=== PATIENT | male | born 1965 | race Caucasian/White ===

== ENCOUNTER → 2017-02-16 | Outpatient (CLI) | payer OTHER ==
[~2017-02-16] MED LIST: ASPEC81 PO; LPT40 PO; METO1TAB31 PO; NTRGSL4 SL; PLV75 PO
== END | disposition home or self-care (01) ==
LOC: C.LAB 00:48
DX: Z02.83 Encounter for blood-alcohol and blood-drug test (principal)

== ENCOUNTER 2017-02-28 07:45 | Observation (INO) | payer OTHER ==
[~2017-02-28] VITALS: Ht 165.1 cm; Wt 82.5 kg
[2017-02-28 09:32] VITALS: BP 132/76; PULSE 55; TEMP 36.5; O2SAT 100; BMI 27.0
[2017-02-28 13:40] VITALS: BP 124/80; PULSE 61; TEMP 36.6; O2SAT 98; Ht 165.1 cm; Wt 82.5 kg
[2017-02-28] MEDS ORDERED: IV FLUIDS COMPLETED PRN (13:45)
[2017-02-28] MEDS ORDERED: ATORVASTATIN 40 MG TAB PO ONE (14:00)
[2017-02-28 15:46] VITALS: BP 120/76; PULSE 58; TEMP 36.6; O2SAT 97
[2017-02-28 19:56] VITALS: BP 114/72; PULSE 58; TEMP 36.7; O2SAT 95
--- NOTE | 2017-02-28 21:52 | History & Physical Bridge Note ---
H&P Re-Evaluation Bridge Note: I have examined the patient, reviewed the History & Physical and in the interval since the performance of the History & Physical I have noted the following changes of clinical significance: No changes noted
[2017-03-01] VITALS (16 sets, daily range): BP systolic 98–139; BP diastolic 65–93; PULSE 47–99; TEMP 36.3–37.1; O2SAT 94–100
[2017-03-01] MEDS ORDERED: NiCARDipine HCL INJ 2.5 MG/ML 10 ML AMP ONE (07:53)
[2017-03-01] MEDS ORDERED: NITROGLYCERIN/D5W 100MCG/ML 20ML SYR ONE (07:54)
[2017-03-01] MEDS ORDERED: HEPARIN SOD (PORCINE) 1000 UNIT/ML 10 ML VIAL ONE ×2 (07:54→09:34)
[2017-03-01] MEDS ORDERED: MIDAZOLAM HCL 1 MG/ML 2ML VIAL ONE ×2 (07:55→09:10)
[2017-03-01] MEDS ORDERED: FENTANYL CITRATE INJ 50 MCG/1 ML 2 ML VIAL ONE (07:55)
[2017-03-01] MEDS ORDERED: ADENOSINE IV SOLN 3 MG/ML 20 ML VIAL ONE (08:45)
--- NOTE | 2017-03-01 08:50 | Procedure Note ---
Pre-Mod Sedation Assessment General Date of Moderate Sedation: Mar 01, 2017. Vital Signs: Vital Signs Past 12 Hours Date Time Temp Pulse Resp B/P (MAP) Pulse Ox O2 Delivery O2 Flow Rate FiO2 03/01/17 07:26 36.6 47 18 106/69 (81) 98 Room Air 03/01/17 04:00 97 Room Air 03/01/17 04:00 37.0 56 98/67 (77) 97 Room Air 03/01/17 00:00 36.9 60 110/76 (87) 94 Room Air 03/01/17 00:00 94 Room Air Review Cardiovascular: regular rate, rhythm, no edema, + bradycardia Abdomen: normal bowel sounds, non tender, soft Lungs: chest non-tender, lungs clear Pre-Sedation Airway Assessment Oral Cavity: WNL Short Thick Neck: No Hx of Sleep Apnea: No Smoking Status: Never Smoker Mallampati Classification: Class II ASA Classification: Class III Procedure Planning Contraindications-for Mod Sed: None Yes Notes The planned sedation has been discussed with the patient and consent obtained. I have identified the patient, determined the appropriateness of sedation and have assessed the patient immediately prior to the procedure. All medicine(s) and interventions are by my order.
--- NOTE | 2017-03-01 08:51 | Procedure Note ---
Post-Mod Sedation Assessment General Date of Moderate Sedation Mar 01, 2017. Vital Signs: Vital Signs Past 12 Hours Date Time Temp Pulse Resp B/P (MAP) Pulse Ox O2 Delivery O2 Flow Rate FiO2 03/01/17 07:26 36.6 47 18 106/69 (81) 98 Room Air 03/01/17 04:00 97 Room Air 03/01/17 04:00 37.0 56 98/67 (77) 97 Room Air 03/01/17 00:00 36.9 60 110/76 (87) 94 Room Air 03/01/17 00:00 94 Room Air Review - Discharge Criteria Vital Signs Stable: Yes Alert/Oriented/Conversant: Yes Returned to Baseline Mental St: Yes Nausea Absent/Minimal: Yes Pain/Discomfort/Absent/Minimal: Yes Normal/Baseline Respirations: Yes Active Bleeding?: No Pt Received D/C Instructions: N/A Prescriptions Given: None Specific Proced. D/C Criteria Distal Pulses Present (Cardiac: Yes Groin site assessed-Card Cath: N/A Voided Prior To Discharge: N/A Discharged Patients Adult Escort/Transportation: N/A
[2017-03-01] MEDS ORDERED: ATORVASTATIN 40 MG TAB PO SCH (09:00)
[2017-03-01] MEDS ORDERED: ASPIRIN 81 MG CHEW PO SCH (09:00)
--- NOTE | 2017-03-01 09:13 | Cardiac Catheterization ---
Procedure Note Procedure Date Mar 01, 2017. Pre-Procedure Diagnosis Angina, Positive Stress Test AUC Score 8 Post-Procedure Diagnosis Moderate CAD Procedure(s) Performed Coronary Angiography, Left Heart Cath Commutator Tester Dr. 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 ACC Data Cardiac Status Clinical evaluation leading to the procedure CAD Presntation: Unstable angina Anginal Classification: CCS II Heart Failure: No Cardiogenic Shock w/in 24Hrs: No Cardiac Arrest w/in 24Hrs: No Imaging studies past 6 months: Yes Stress Echocardiogram: Yes - Positive, Risk/Extent of Ischemia (High) Coronary Anatomy Dominant: Right Left Main (% Stenosis): Normal LAD (% Stenosis): Ostial (0%), Proximal (60%), Mid (20%, 80% stenosis of small second septal driver/refuse collector), Distal (10%) D1 (% Stenosis): Normal D2 (% Stenosis): Normal D3 (% Stenosis): Normal Circumflex (% Stenosis): Normal OM1 (% Stenosis): Normal OM2 (% Stenosis): Ostial (small vessel with diffuse luminal irregularities 10%) L PL1 (% Stenosis): Normal RCA (% Stenosis): Ostial (0%), Proximal (20%), Mid (0%), Distal (0%) R PDA (% Stenosis): Ostial (10%), Proximal (40%), Mid (10%), Distal (10%) AM (% Stenosis): Normal Ramus (% Stenosis): Ostial (0%), Mid (20%), Distal (0%), Proximal (0%) Diagnostic Status: Urgent Closure Device Percutaneous Entry Location: Radial Closure Device: Radial Band Intraprocedure Events Significant Dissection: No Perforation: No
[2017-03-01] MEDS ORDERED: ONDANSETRON INJ 2 MG/ML 2 ML VIAL IV PRN (10:00)
[2017-03-01] MEDS ORDERED: SODIUM CHLORIDE 0.9% 1000ML 1,000 ML IV SCH (10:00)
[2017-03-01] MEDS ORDERED: ACETAMINOPHEN 325 MG TAB PO PRN (10:00)
[2017-03-01] MEDS ORDERED: CLOPIDOGREL BISULFATE 300 MG TAB PO ONE (10:04)
--- NOTE | 2017-03-01 10:06 | Procedure Note ---
Post-Mod Sedation Assessment General Date of Moderate Sedation Mar 01, 2017. Vital Signs: Vital Signs Past 12 Hours Date Time Temp Pulse Resp B/P (MAP) Pulse Ox O2 Delivery O2 Flow Rate FiO2 03/01/17 09:48 58 16 126/78 (94) 98 Room Air 03/01/17 07:26 36.6 47 18 106/69 (81) 98 Room Air 03/01/17 04:00 97 Room Air 03/01/17 04:00 37.0 56 98/67 (77) 97 Room Air 03/01/17 00:00 36.9 60 110/76 (87) 94 Room Air 03/01/17 00:00 94 Room Air Review - Discharge Criteria Vital Signs Stable: Yes Alert/Oriented/Conversant: Yes Returned to Baseline Mental St: Yes Nausea Absent/Minimal: Yes Pain/Discomfort/Absent/Minimal: Yes Normal/Baseline Respirations: Yes Active Bleeding?: No Pt Received D/C Instructions: N/A Prescriptions Given: None Specific Proced. D/C Criteria Distal Pulses Present (Cardiac: Yes Groin site assessed-Card Cath: N/A Voided Prior To Discharge: N/A Discharged Patients Adult Escort/Transportation: N/A
--- NOTE | 2017-03-01 10:16 | Cardiac Catheterization ---
Procedure Note Procedure Date Mar 01, 2017. Pre-Procedure Diagnosis Positive Stress Test AUC Score 7 Post-Procedure Diagnosis Severe CAD, Successful PCI Procedure(s) Performed Drug Eluting Stent, IVUS, Fractional Flow [place] Machine Clothing Replacer Rogerio Bulk Mail Clerk(s) Dana Estimated Blood Loss 15 Medication(s) Clopidogrel, Fentanyl, Heparin, Nitroglycerin, Versed, Lidocaine 1% Summary of Findings Indication: Positive stress test Access: 6Fr Slender Right Radial Catheters: EBU 3.5 guide Findings: For full details of coronary angiography see cath report dictated by Dr. Aj. Briefly found to have diffuse proximal LAD intermediate stenosis. Decision made to further evaluate with FFR. iFR 0.89 FFR 0.65 IVUS showed diffuse 70% stenosis form mid segment to early proximal segment, ostium spared. Focal mild-moderate calcification. -- PCI -- Antithrombotic therapy: Heparin Procedure: LM cannulated with EBU 3.5 guide BMW wire passed across lesion into distal vessel Lesion characteristics/size assessed with IVUS Proximal-mid lesion predilated with 2.5 compliant balloon Dilated lesion stented with 3.0 x 33 Xience ÓSCAR Stent post-dilated with 3.75 noncompliant balloon to high atmospheres. IVUS confirmed well-expanded stent IC vasodilators administered for spasm Post procedure BEATRICE 3 flow, stent well expanded with minimal residual stenosis and no apparent cardiac complications. Arterial Closure: TR Band Summary: 1. 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 Aj Consult cardiac Rehab Hemodynamics Rest Ao: 97/62/77 Final Ao: 101/60/81 LV: 109/13 Recommendations PCI without planned CABG Specimens None Radiation Exposure (mGy) 3600 Contrast (mls) 160 Fluids (cc crystalloids) 170 Drains None Anesthesia Moderate (08:18 - 9:48) Procedural Complication(s) None Disposition PCU ACC Data Cardiac Status Clinical evaluation leading to the procedure CAD Presntation: Positive Stress Test Anginal Classification: CCS III Heart Failure: No, NYHA Class: CCS I Cardiogenic Shock w/in 24Hrs: No Cardiac Arrest w/in 24Hrs: No Imaging studies past 6 months: Yes Stress studies past 6 months: Yes Coronary Anatomy Dominant: Right LAD (% Stenosis): Proximal (70%) Diagnostic Physician's Name: Omid Aj DO Status: Elective Closure Device Percutaneous Entry Location: Femoral Closure Device: Radial Band Recommendations: PCI without planned CABG PCI Indication: + Stress Test Lesion Segment Name: Proximal-mid LAD Culprit Artery: Yes Stenosis Prior to Rx (%): 70 Chronic Total Occlusion: No IVUS: Yes FFR: Yes Ratio: less than or equal to 0.75% Pre-Procedure BEATRICE Flow: 3 Previously Treated Lesion: No Lesion Complexity: Non-High/Non-C Lesion Length (mm): 30 Thrombus Present: No Bifurcation Lesion: No Guidewire Across Lesion: Yes Guidewire: Stenosis Post-Procedure (%): 0 Post-Procedure BEATRICE Flow: 3 Device(s) Deployed: Yes Intraprocedure Events Significant Dissection: No Perforation: No
--- NOTE | 2017-03-01 19:03 | Cardiology Follow-Up ---
Subjective General Date of Service: Mar 01, 2017. Pt evaluation today including: conversation w/ patient, physical exam, chart review, lab review, review of studies, review of inpatient medication list History of Present Illness The patient is a 51 year old male seen in follow up. No recurrent CP overnight. No complaints. Allergies Coded Allergies: Penicillins (Verified Adverse Reaction, Mild, N/V, 09/25/09) No Known Allergies (Verified , 03/06/05) Social History Smoking Status: Never Smoker Hx Tobacco Use In Past Year?: No Hx Alcohol Use - Type And Amou: No Hx Substance Use - Type And Am: No Review of Systems Respiratory: No cough, No sputum, No shortness of breath, No dyspnea at rest, No hemoptysis Cardiac: No chest pain, No edema, No palpitations Physical Exam Vital Signs Last Vital Signs Documentation Date Time Temp Pulse Resp B/P (MAP) Pulse Ox O2 Delivery O2 Flow Rate FiO2 03/01/17 16:00 Room Air 03/01/17 15:20 36.3 48 18 109/71 (84) 97 Physical Exam Head: normocephalic Lungs: Auscultation: breath sounds normal, no wheezing, no rales/crackles Cardiovascular: Heart Auscultation: RRR, normal S1, normal S2, no murmurs, bradycardia Peripheral Pulses: Radial Pulse: normal on the right Femoral Pulse: normal on the right Extremities: no cyanosis, no edema Assessment and Plan Assessment and Plan 1. Exertional angina with abnormal stress test suggesting LAD territory ischemia. Plan: Coronary angiography with left heart catheterization. Continue aspirin and statin. Laboratory Results Last 24 Hours Test 03/01/17 06:58 03/01/17 09:07 03/01/17 09:29 03/01/17 10:37 Hepatitis C Antibody Screen PRELIM POS Kaolin Activated Coagulation Time 268 SECONDS 246 SECONDS
[2017-03-02 03:21] VITALS: BP 125/77; PULSE 52; TEMP 36.9; O2SAT 97
[2017-03-02 07:05] LABS: BASO % 0.7 %; BASO ABS # 0.07 K/uL (0-0.2); COMPLETE YES; EOS % 6.5 %; HEMATOCRIT 47.6 % (42-52); IG% 0.1 %; LYMPH % 21.3 %; LYMPH ABS # 2.23 K/uL (1.2-3.4); MEAN CELL VOLUME 90.5 fL (80-100); MEAN CORPUSCULAR HEMOGLOBIN 29.8 pg (25-34); MONO % 12.7 %; NEUT % 58.7 %; PLATELET COUNT 306 K/uL (130-400); RED BLOOD COUNT 5.26 M/uL (4.7-6.1); WHITE BLOOD COUNT 10.46 K/uL (4.8-10.8)
[2017-03-02 07:41] LABS: BUN/CREATININE RATIO 16.3 (10-20); CALCIUM 8.4 mg/dl (8.5-10.1); CREATININE 1.1 mg/dl (0.60-1.40)
[2017-03-02 07:57] VITALS: BP 120/82; PULSE 55; TEMP 36.6; O2SAT 96
[2017-03-02] MEDS ORDERED: CLOPIDOGREL BISULFATE 75 MG TAB PO SCH (09:00)
[2017-03-02] MEDS ORDERED: ATORVASTATIN 40 MG TAB PO SCH (09:00)
[2017-03-02] MEDS ORDERED: ASPIRIN 81 MG ECTAB PO SCH (09:00)
[2017-03-02] MEDS ORDERED: METOPROLOL SUCC 25MG EXT REL TAB PO ONE (09:27)
[2017-03-02] MEDS ORDERED: ASPEC81 PO (09:29)
[2017-03-02] MEDS ORDERED: METO1TAB31 PO (09:29)
[2017-03-02] MEDS ORDERED: PLV75 PO (09:29)
[2017-03-02] MEDS ORDERED: LPT40 PO (09:29)
[2017-03-02] MEDS ORDERED: NTRGSL4 SL (09:32)
--- NOTE | 2017-03-02 09:33 | Discharge Instructions ---
Discharge Instructions Procedure Procedure Date: Mar 02, 2017. Reason for Visit: Unstable Angina. Discharge Discharge Date: Mar 02, 2017. Discharge Diagnosis: CAD S/P LAD stent Last Recorded Wt (Kilograms): 82.500 Anesthesia Post Anesthesia Instructions: If you have had General Anesthesia or IV Sedation: * Do not drive today. * Resume driving when surgeon permits. * Do not make important decisions or sign legal documents today. * Call surgeon for: 1. Temperature elevations greater than 101 degrees F. 2. Uncontrollable pain. 3. Excessive bleeding. 4. Persistent nausea and vomiting. 5. Medication intolerance (nausea, vomiting or rash). * For nausea and vomiting use only clear liquids such as: tea, soda, bouillon until nausea subsides, then gradually increase diet as tolerated. * If you have any concerns or questions, call your surgeon's office. If physician is unavailable and it is an emergency, call 911 or go to the nearest emergency room. Instructions Activity Recommendations: limitations as noted below Return to School/Work: with the following limitations Recommended Home Diet: low cholesterol Allergies: Coded Allergies: Penicillins (Verified Adverse Reaction, Mild, N/V, 09/25/09) No Known Allergies (Verified , 03/06/05) Provider Instructions ACTIVITY RECOMMENDATIONS: It is common to feel weak and fatigue for a few days. * Do not drive or operate any motorized equipment for the next three days. * Limit stair usage (2 or 3 trips a day only) for the next three days. * Do not lift anything heavier than 10 pounds for the next three days. * Do not engage in vigorous exercise or any sports for the next five days. * You may shower the day after your procedure, but do not immerse the area for three days. Cleanse the site gently with soap and water. SPECIAL CARE INSTRUCTIONS: * You may replace the pressure dressing or band-aid the morning after the procedure. * After your procedure, it is normal to have a small bruise or small lump at the site. Examine your site daily for any change in the bruise or lump, redness, swelling, drainage or numbness. Notify your doctor if any change. BLEEDING: * If there is a small amount of bleeding at the site, lie down and apply firm pressure with a clean cloth for ten minutes. When the bleeding stops, lie quietly keeping the procedure limb straight for six hours. Notify your doctor as soon as possible. * If the bleeding does not stop after ten minutes or if there is a large amount of bleeding or spurting, call 911 immediately. Continue to lie down and hold firm pressure until help arrives. SKIN IRRITATION: * You may experience some redness and/or swelling in the area where radiation was administered. If any skin irritation occurs, please contact your family physician. FOLLOW UP VISIT: Keep any scheduled doctor appointments. Follow Up Follow-up with: Dr. Aj in 2 weeks. Phone number [phone] [facility] Recommendations: Call your doctor if: * Temperature above 101 degrees * Pain not relieved by pain medicine ordered * There is increased drainage or redness from any incision * You have any unanswered questions or concerns. Your Doctors Instructions noted above were prepared by provider Omid Aj. Patient Signature Section: Patient Instructions Signature Page Gustavo Moseley Patient (or Guardian) Signature/Date: I have read and understand the instructions given to me by my caregivers. Caregiver/RN/Doctor Signature/Date: The above-named patient and/or guardian has received patient instructions on this date. + Original Patient Signature Page (only) stays with chart. Please make copy for patient.
[2017-03-02 09:38] VITALS: BP 120/82; PULSE 55; TEMP 36.6; O2SAT 96
--- NOTE | 2017-03-02 10:40 | Cardiology Follow-Up ---
Subjective General Date of Service: Mar 02, 2017. Pt evaluation today including: conversation w/ patient, physical exam, chart review, lab review, review of studies, review of inpatient medication list History of Present Illness The patient is a 51 year old male seen in follow-up. No dysrhythmias or significant bradycardia on telemetry. Denies chest discomfort or shortness of breath overnight. No right wrist discomfort. Tolerated a.m. meal and medications. Offers no complaints this time. Allergies Coded Allergies: Penicillins (Verified Adverse Reaction, Mild, N/V, 09/25/09) No Known Allergies (Verified , 03/06/05) Social History Smoking Status: Never Smoker Hx Tobacco Use In Past Year?: No Hx Alcohol Use - Type And Amou: No Hx Substance Use - Type And Am: No Review of Systems Respiratory: No cough, No sputum, No wheezing, No shortness of breath, No dyspnea on exertion, No dyspnea at rest, No hemoptysis Cardiac: No chest pain, No orthopnea, No PND, No edema, No claudication, No palpitations Physical Exam Vital Signs Last Vital Signs Documentation Date Time Temp Pulse Resp B/P (MAP) Pulse Ox O2 Delivery O2 Flow Rate FiO2 03/02/17 09:38 36.6 55 16 96 Room Air 03/02/17 07:57 120/82 (95) Physical Exam Head: normocephalic Neck: supple Lungs: Auscultation: breath sounds normal, no wheezing, no rales/crackles Cardiovascular: Heart Auscultation: RRR, normal S1, normal S2, no murmurs Peripheral Pulses: Radial Pulse: normal on the right Extremities: no cyanosis, no edema, no clubbing, no ulcers Neurologic: Gait & Station: pertinent finding (no focal motor deficit.) Cranial Nerves: grossly intact Assessment and Plan Assessment and Plan Imp: 1. Coronary artery disease status post drug-eluting stent implantation to the proximal left anterior descending artery. 2. Dyslipidemia 3. +HCV screen with h/o negative HCV confirmatory testing in the past. Plan: I long discussion the patient regarding importance of continuing dual antiplatelet therapy uninterrupted for a minimum of 12 months post percutaneous intervention. Risk of stent thrombosis reviewed at length. He will continue aspirin, Plavix, and atorvastatin and. He'll be provided with a prescription for sublingual nitroglycerin at time of discharge. I'm also adding low-dose Toprol-XL, 12.5 mg daily. All questions were answered to his satisfaction. Post catheterization restrictions listed below. I will arrange for close cardiology follow-up in 2 weeks. ACTIVITY RECOMMENDATIONS: It is common to feel weak and fatigue for a few days. * Do not drive or operate any motorized equipment for the next three days. * Limit stair usage (2 or 3 trips a day only) for the next three days. * Do not lift anything heavier than 10 pounds for the next three days. * Do not engage in vigorous exercise or any sports for the next five days. * You may shower the day after your procedure, but do not immerse the area for three days. Cleanse the site gently with soap and water. SPECIAL CARE INSTRUCTIONS: * You may replace the pressure dressing or band-aid the morning after the procedure. * After your procedure, it is normal to have a small bruise or small lump at the site. Examine your site daily for any change in the bruise or lump, redness, swelling, drainage or numbness. Notify your doctor if any change. BLEEDING: * If there is a small amount of bleeding at the site, lie down and apply firm pressure with a clean cloth for ten minutes. When the bleeding stops, lie quietly keeping the procedure limb straight for six hours. Notify your doctor as soon as possible. * If the bleeding does not stop after ten minutes or if there is a large amount of bleeding or spurting, call 911 immediately. Continue to lie down and hold firm pressure until help arrives. SKIN IRRITATION: * You may experience some redness and/or swelling in the area where radiation was administered. If any skin irritation occurs, please contact your family physician. Laboratory Results Last 24 Hours Test 03/01/17 10:37 03/02/17 06:22 White Blood Count 10.46 K/uL Red Blood Count 5.26 M/uL Hemoglobin 15.7 g/dL Hematocrit 47.6 % Mean Corpuscular Volume 90.5 fL Mean Corpuscular Hemoglobin 29.8 pg Mean Corpuscular Hemoglobin Concent 33.0 g/dl Platelet Count 306 K/uL Mean Platelet Volume 10.0 fL Neutrophils (%) (Auto) 58.7 % Lymphocytes (%) (Auto) 21.3 % Monocytes (%) (Auto) 12.7 % Eosinophils (%) (Auto) 6.5 % Basophils (%) (Auto) 0.7 % Neutrophils # (Auto) 6.14 K/uL Lymphocytes # (Auto) 2.23 K/uL Monocytes # (Auto) 1.33 K/uL Eosinophils # (Auto) 0.68 K/uL Basophils # (Auto) 0.07 K/uL RDW Standard Deviation 42.5 fL RDW Coefficient of Variation 12.7 % Immature Granulocyte % (Auto) 0.1 % Immature Granulocyte # (Auto) 0.01 K/uL Sodium Level 139 mmol/L Potassium Level 4.0 mmol/L Chloride Level 106 mmol/L Carbon Dioxide Level 28 mmol/L Anion Gap 5.0 mmol/L Blood Urea Nitrogen 18 mg/dl Creatinine 1.10 mg/dl Est Creatinine Clear Calc Drug Dose 76.8 ml/min Estimated GFR () 88.4 Estimated GFR (Non- 76.2 BUN/Creatinine Ratio 16.3 Random Glucose 102 mg/dl Calcium Level 8.4 mg/dl
--- NOTE | 2017-03-02 10:50 | Discharge Summary ---
Discharge Summary Dates Admission Date / Time: Feb 28, 2017 at 12:03 Discharge Date: Mar 02, 2017 Dispostion / Condition Discharge Disposition: Home Condition at Discharge: Good Principal Diagnosis (1) S/P coronary artery stent placement (2) Unstable angina Consultations / Procedures Consultations: Dr. Reji Beatty of interventional cardiology. Procedures: Cardiac catheterization via right radial approach, FFR and IVUS of LAD with subsequent drug-eluting stent implantation to the proximal left anterior descending artery. Pending Studies / Follow-Up Cardiology, Dr. Aj in 2 weeks Medication Reconciliation New Medications: Metoprolol Succinate (Toprol Xl) 25 Mg Tab 0.5 TAB PO DAILY for 30 Days, #15 TAB 5 Refills Nitroglycerin (Nitrostat) 0.4 Mg/1 Tab Subl 0.4 MG SL DIRECTED PRN for Chest Pain for 30 Days, #1 BTL 3 Refills NS Aspirin (Aspirin EC Low Dose) 81 Mg Ectab 81 MG PO QAM for 30 Days Atorvastatin (Atorvastatin Calcium) 40 Mg Tab 80 MG PO QAM for 30 Days, #60 TAB Clopidogrel Bisulfate (Clopidogrel) 75 Mg Tab 75 MG PO QAM for 30 Days, #30 TAB Discontinued Medications: None (Patient States No Home Meds) . Hospital Course (1) Unstable angina (2) S/P coronary artery stent placement Patient was scheduled for elective cardiac catheterization 02/28/17. Due to scheduling issues and acute heart alert patient's catheterization was canceled on that date. He was admitted due to recurrent chest discomfort as well as resting check discomfort consistent with unstable angina. It was felt to be unsafe to discharge him to home with these ongoing symptoms. Cardiac catheterization was performed 03/01/17. Patient was found to have significant proximal LAD stenosis which was positive via FFR and IVUS. Drug-eluting stent was implanted by Dr. Beatty without complication. Patient tolerated procedure. He was recovered overnight and discharged in stable condition 03/02/17. He was provided with written prescriptions and discharge instructions. I stressed importance of continuing dual antiplatelet therapy uninterrupted. He was agreeable to current plan. I've arranged for close cardiology follow-up in 2 weeks. Total Time Total Time Spent (min): 45 Total Time Includes: examination of the patient, discharge planning, medication reconciliation Discharge Instructions ACTIVITY RECOMMENDATIONS: It is common to feel weak and fatigue for a few days. * Do not drive or operate any motorized equipment for the next three days. * Limit stair usage (2 or 3 trips a day only) for the next three days. * Do not lift anything heavier than 10 pounds for the next three days. * Do not engage in vigorous exercise or any sports for the next five days. * You may shower the day after your procedure, but do not immerse the area for three days. Cleanse the site gently with soap and water. SPECIAL CARE INSTRUCTIONS: * You may replace the pressure dressing or band-aid the morning after the procedure. * After your procedure, it is normal to have a small bruise or small lump at the site. Examine your site daily for any change in the bruise or lump, redness, swelling, drainage or numbness. Notify your doctor if any change. BLEEDING: * If there is a small amount of bleeding at the site, lie down and apply firm pressure with a clean cloth for ten minutes. When the bleeding stops, lie quietly keeping the procedure limb straight for six hours. Notify your doctor as soon as possible. * If the bleeding does not stop after ten minutes or if there is a large amount of bleeding or spurting, call 911 immediately. Continue to lie down and hold firm pressure until help arrives. SKIN IRRITATION: * You may experience some redness and/or swelling in the area where radiation was administered. If any skin irritation occurs, please contact your family physician. FOLLOW UP VISIT: Keep any scheduled doctor appointments. Copies To Primary Care Provider: Valentin Johns III, M.D..
[2017-03-03] MEDS ORDERED: METOPROLOL SUCC 25MG EXT REL TAB PO SCH (09:00)
[2017-03-03 12:39] LABS: HEPATITIS C RNA TMA QUAL Not detected
== END 2017-03-02 10:00 | disposition home or self-care (01) ==
LOC: C.CATH 07:45 → C.2T 12:03 → ENRESERV 12:06
PROVIDERS: ADMIT Internal Medicine Cardiovascular Disease; ATTEND Internal Medicine Cardiovascular Disease
DX: I25.110 Atherosclerotic heart disease of native coronary artery with unstable angina pectoris (principal); E78.5 Hyperlipidemia, unspecified; Z79.82 Long term (current) use of aspirin; Z82.49 Family history of ischemic heart disease and other diseases of the circulatory system

== ENCOUNTER 2021-11-16 00:34 | Observation (INO) ==
[2021-11-16] MEDS ORDERED: NITROGLYCERIN 2% OINTMENT 30GM TUBE EXT ONE (00:49)
[2021-11-16] MEDS ORDERED: ONDANSETRON INJ 2 MG/ML 2 ML VIAL IV STA (00:49)
[2021-11-16] MEDS ORDERED: ASPIRIN CHEW 324 MG PO STA (00:49)
[2021-11-16] MEDS: MoRPHine SULFATE 4 MG/ML 1 ML CARP\\VIAL IV PRN ×2 (00:58→01:37)
[2021-11-16 01:00] LABS: Basophils # (auto) 0.03 K/uL (0-0.2); Basophils % (auto) 0.2 %; Eosinophils # (auto) 0.46 K/uL (0-0.5); Eosinophils % (auto) 3.1 %; Hematocrit (blood only) 46.2 % (42-52); Hemoglobin 15.8 g/dL (14.0-18.0); Immature Granulocytes # (auto) 0.02 K/uL (0.00-0.02); Immature Granulocytes % (auto) 0.1 %; Lymphocytes # (auto) 1.64 K/uL (1.2-3.4); Lymphocytes % (auto) 10.9 %; Mean Corpuscular Hemoglobin 30.4 pg (25-34); Mean Corpuscular Hgb Conc 34.2 g/dL (32-36); Mean Platelet Volume 9.6 fL (7.4-10.4); Monocytes # (auto) 2.01 K/uL (0.11-0.59); Monocytes % (auto) 13.4 %; Neutrophils # (auto) 10.89 K/uL (1.4-6.5); Neutrophils % (auto) 72.3 %; Platelet Count 281 K/uL (130-400); RDW Coefficient of Variation 13.1 % (11.5-14.5); RDW Standard Deviation 42.9 fL (36.4-46.3); Red Blood Count 5.19 M/uL (4.7-6.1); White Blood Count 15.05 K/uL (4.8-10.8)
[2021-11-16] MEDS ORDERED: SODIUM CHLORIDE 0.9% 1000ML 1,000 ML IV SCH (01:00)
[2021-11-16 01:11] LABS: Partial Thromboplastin Time 26.8 Seconds (21.0-31.0); Prothrombin Time 10.8 Seconds (9.0-12.0)
[2021-11-16 01:14] LABS: iSTAT Creatinine 1.2 mg/dl (0.6-1.3); iSTAT Ionized Calcium 1.1 mmol/l (1.12-1.32); iSTAT Potassium 3.8 mmol/L (3.3-5.0)
[2021-11-16] MEDS ORDERED: OPTIRAY 320 125ml IV ONE (01:17)
[2021-11-16 01:29] LABS: Troponin I < 0.03 ng/ml (0-0.04)
[2021-11-16 01:43] LABS: Aspartate Aminotransferase 24 U/L (13-39); Potassium 4.4 mmol/L (3.5-5.1)
[2021-11-16 01:54] LABS: Alanine Aminotransferase 20 U/L (7-52); Albumin Globulin Ratio 1.4 (0.9-2); Albumin Level 4.3 gm/dl (3.4-5.0); Alkaline Phosphatase 62 U/L (34-104); Anion Gap 10 (3-11); BUN Creatinine Ratio 20.2 (10-20); Bilirubin,Total 0.9 mg/dl (0.2-1.0); Blood Urea Nitrogen 20 mg/dl (6-23); Calcium 9.3 mg/dl (8.5-10.1); Carbon Dioxide 25 mmol/L (21-32); Chloride 103 mmol/L (98-107); Creatinine Clr Calc Pharmacy 70.7 ml/min; Est GFR (African American) 96.9 ml/min; Est GFR (Non-African American) 83.6 ml/min; Glucose 128 mg/dl (70-99(Fasting)); Lipase 65 U/L (11-82); Sodium 138 mmol/L (136-145); Total Protein 7.3 gm/dl (6.0-8.3)
[2021-11-16] MEDS ORDERED: GI COCKTAIL ED USE PO ONE (02:05)
--- NOTE | 2021-11-16 02:46 | History & Physical Report ---
Date of Service November 16, 2021 Assessment & Plan (1) Atypical chest pain: Plan: With abnormal inflammatory markers and constitutional symptoms ? Viral pericarditis hx CAD status post stent hyperlipidemia, on statin Rx Hyperglycemia rule out DM SPN on initial CT read past tobacco abuse OBS PCU Analgesia Follow troponin TTE, Cardiology consult Re: Chest pain history CAD N.p.o. until patient seen by cardiology in anticipation of procedure Check hemoglobin A1c Follow official CT chest result, outpatient Pulmonology eval if SPN found on official read DVT prophylaxis. Lovenox subcu Full code Patient partner requesting update from providers. Ms. Cherelle Gastelum, contact #[phone]. Text document was generated using [employer] voice recognition software. It may contain grammatical or spelling errors. Kindly contact undersigned for clarification of any documentation item in question. History of Present Illness Chief Complaint: Chest pain Primary Care Provider: Valentin Johns MD History obtained from patient, family, and records. Medical history significant for CAD status post stent (2019), hypertension, hyperlipidemia, past tobacco abuse. Last confinement February 2017 under Cardiology service for unstable angina status post stent placement. Sequent stent placement with note of high-grade mid LAD stenosis on outpatient cardiac catheterization last August 2019. About 2 months ago, patient noted transient chest discomfort relieved by nitroglycerin while shoveling snow. Patient seen at [facility] Cardiology office outpatient 3 weeks ago. Poultry Feed Supervisor recommended cardiac testing but patient reluctant due to insurance issues. Toprol dose increased. Patient instructed to go to ER if with recurrence of chest pain. 2 days ago, patient felt tired like he was going to get sick. No cough symptoms. Patient completed COVID-19 vaccination. Patient does not perea. No known recent tick bites. Last night upon arrival at home patient noted pleuritic chest discomfort with shortness of breath not relieved by nitroglycerin. Episode somewhat different from discomfort from a few months back. Patient consulted ER for evaluation. 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 Allergies Allergy/AdvReac Type Severity Reaction Status Date / Time Penicillins AdvReac Mild N/V Verified 11/16/21 00:51 Home Medications Medication Instructions Recorded Confirmed Type aspirin 81 mg chewable tablet 81 mg PO QAM 04/19/19 11/16/21 History fluticasone propionate 50 2 spray INTRANASAL QAM 04/19/19 11/16/21 History mcg/actuation nasal spray,suspension (Flonase Allergy Relief) metoprolol succinate 25 mg 25 mg PO QAM 04/19/19 11/16/21 History tablet,extended release 24 hr nitroglycerin 0.4 mg sublingual 0.4 mg SUBLINGUAL UD PRN 04/19/19 11/16/21 History tablet rosuvastatin 40 mg tablet (Crestor) 40 mg PO QAM 04/19/19 11/16/21 History ascorbic acid (vitamin C) 500 mg 500 mg PO QAM 11/16/21 11/16/21 History tablet (Vitamin C) multivitamin 1 tab PO QAM 11/16/21 11/16/21 History omega-3 fatty acids-fish oil 684 1 cap PO QAM 11/16/21 11/16/21 History mg-1,200 mg capsule,delayed release Past Med/Surg History Medical History (Updated 11/16/21 @ 05:41 by Clarence Moraes MD) CAD (coronary artery disease) Surgical History History of cardiac cath 2014 History of cataract surgery LEFT History of heart artery stent failed stress test and found blockage -- stent x 1 2014 done [facility] and no longer cardiac doctor took plavix for one year and takes metoprolol and crestor Hx of appendectomy Hx of colonoscopy Hx of wisdom tooth extraction Social History Smoking Status: Never smoker Second Hand Exposure: No; Hx Alcohol Use: No Hx Substance Use: No Preferred Language: Congolese Communication Ability: Effective [facility] Attendant Required: No Beliefs That Will Affect Care: None Current Living Situation: Alone Other Information That Helps Us Care for You: No Feels Safe at Home: Yes Safety Concerns: Feels Safe At This Time Assistive Devices: Glasses Review of Systems Review of Systems: As per HPI, all 10 systems reviewed, all other ROS negative Physical Exam Physical Exam: GENERAL: Slightly uncomfortable, pleasant, anxious, obese, no respiratory distress SKIN: Normal color, warm HEENT: [place] palpebral conjunctivae, no ptosis, dry buccal mucosa NECK : Supple, short neck, no tenderness CHEST : CTA, no tenderness HEART : RRR, no obvious murmurs ABDOMEN: Some distention, nontender EXTREMITIES : No LE swelling/tenderness, no other conspicuous deformities noted NEUROLOGIC : Coherent, no facial asymmetry, no other gross focality Results & Data Results & Data ([facility]) Vital Signs (Past 12 Hours) Vital Signs Temp Pulse Pulse Resp BP Pulse Ox 11/16/21 01:57 68 20 128/79 97 11/16/21 00:53 97 11/16/21 00:37 36.9 C 70 19 98 Laboratory Results Laboratory Results WBC 15.05 K/uL (4.8-10.8) H 11/16/21 00:48 RBC 5.19 M/uL (4.7-6.1) 11/16/21 00:48 Hgb 15.8 g/dL (14.0-18.0) 11/16/21 00:48 POC Hgb 16.0 g/dl (14.0-18.0) 11/16/21 01:01 Hct 46.2 % (42-52) 11/16/21 00:48 POC Hct 47 % (42-52) 11/16/21 01:01 MCV 89.0 fL (80-100) 11/16/21 00:48 MCH 30.4 pg (25-34) 11/16/21 00:48 MCHC 34.2 g/dL (32-36) 11/16/21 00:48 RDW Std Deviation 42.9 fL (36.4-46.3) 11/16/21 00:48 RDW Coeff of Rebeca 13.1 % (11.5-14.5) 11/16/21 00:48 Plt Count 281 K/uL (130-400) 11/16/21 00:48 MPV 9.6 fL (7.4-10.4) 11/16/21 00:48 Immature Gran % (Auto) 0.1 % 11/16/21 00:48 Neut % (Auto) 72.3 % 11/16/21 00:48 Lymph % (Auto) 10.9 % 11/16/21 00:48 [place] % (Auto) 13.4 % 11/16/21 00:48 Eos % (Auto) 3.1 % 11/16/21 00:48 Baso % (Auto) 0.2 % 11/16/21 00:48 Neut # (Auto) 10.89 K/uL (1.4-6.5) H 11/16/21 00:48 Lymph # (Auto) 1.64 K/uL (1.2-3.4) 11/16/21 00:48 [place] # (Auto) 2.01 K/uL (0.11-0.59) H 11/16/21 00:48 Eos # (Auto) 0.46 K/uL (0-0.5) 11/16/21 00:48 Baso # (Auto) 0.03 K/uL (0-0.2) 11/16/21 00:48 Immature Gran # (Auto) 0.02 K/uL (0.00-0.02) 11/16/21 00:48 PT 10.8 Seconds (9.0-12.0) 11/16/21 00:48 INR 1.0 (0.9-1.1) 11/16/21 00:48 APTT 26.8 Seconds (21.0-31.0) 11/16/21 00:48 PTT Ratio 1.0 11/16/21 00:48 POC Sodium 138 mmol/L (135-144) 11/16/21 01:01 Sodium 138 mmol/L (136-145) 11/16/21 00:48 POC Potassium 3.8 mmol/L (3.3-5.0) 11/16/21 01:01 Potassium 4.4 mmol/L (3.5-5.1) 11/16/21 00:48 POC Chloride 102 mmol/L (101-112) 11/16/21 01:01 Chloride 103 mmol/L (98-107) 11/16/21 00:48 Carbon Dioxide 25 mmol/L (21-32) 11/16/21 00:48 POC Total CO2 25 mmol/L (24-31) 11/16/21 01:01 Anion Gap 10 (3-11) 11/16/21 00:48 POC Anion Gap 16.0 mmol/L (16-25) 11/16/21 01:01 POC BUN 22 mg/dl (7-18) H 11/16/21 01:01 BUN 20 mg/dl (6-23) 11/16/21 00:48 Creatinine 0.99 mg/dl (0.6-1.4) 11/16/21 00:48 POC Creatinine 1.2 mg/dl (0.6-1.3) 11/16/21 01:01 Est Cr Clr Drug Dosing 70.7 ml/min 11/16/21 00:48 Est GFR ( Amer) 96.9 ml/min 11/16/21 00:48 Est GFR (Non-Af Amer) 83.6 ml/min 11/16/21 00:48 BUN/Creatinine Ratio 20.2 (10-20) H 11/16/21 00:48 Glucose 128 mg/dl (70-99(Fasting)) H 11/16/21 00:48 POC Glucose (other) 143 mg/dl (70-99) H 11/16/21 01:01 Calcium 9.3 mg/dl (8.5-10.1) 11/16/21 00:48 POC Ioniz Calcium Ofe 1.10 mmol/l (1.12-1.32) L 11/16/21 01:01 Total Bilirubin 0.9 mg/dl (0.2-1.0) 11/16/21 00:48 AST 24 U/L (13-39) 11/16/21 00:48 ALT 20 U/L (7-52) 11/16/21 00:48 Alkaline Phosphatase 62 U/L (34-104) 11/16/21 00:48 Troponin I < 0.03 ng/ml (0-0.04) 11/16/21 00:48 Total Protein 7.3 gm/dl (6.0-8.3) 11/16/21 00:48 Albumin 4.3 gm/dl (3.4-5.0) 11/16/21 00:48 Globulin 3.0 gm/dl (2.5-4.0) 11/16/21 00:48 Albumin/Globulin Ratio 1.4 (0.9-2) 11/16/21 00:48 Lipase 65 U/L (11-82) 11/16/21 00:48 SARS-CoV-2, RNA, NAAT NEGATIVE (NEGATIVE) 11/16/21 01:[address] chest initial read: The thoracic aorta is nondilated measuring 3.4 cm. There is no aneurysmor dissection. The descending thoracic aorta is unremarkable. The pulmonaryarterial tree iswell-opacified with contrast. No pulmonaryemboli are identified. The heart is mildlyenlarged. Severe coronarycalcification is present. No pericardial effusion is seen. There is a 1.3 cmpulmonarynodule in the left lower lobe. This is newsince 2019 suspicious for neoplasm. Limited images of the upper abdomen demonstrate a 5 mmcalcified gallstone within an otherwise unremarkable gallbladder and mild fattyinfiltration of the liver. EKG as per my interpretation rate 70, NSR, LAD, LAFB, no ischemia
[2021-11-16] MEDS ORDERED: FLUTICASONE PROPIONATE NA SPR 16 GM BTL ONE (03:12)
--- NOTE | 2021-11-16 03:15 | Emergency Department Note ---
History of Present Illness General Chief complaint: Chest Pain Stated complaint: CHEST PAIN Time Seen by Provider: 11/16/21 00:41 History of Present Illness Maximum Pain Intensity: 8 This is a 56-year-old male presenting to the emergency department for evaluation of mid central chest pain that he rates an 8/10. The patient states that he may have felt a small amount of pain that began yesterday, but this has significantly crescendoed this evening. The patient does not have any light headedness or dizziness. The pain is constant and is nonradiating. He did take aspirin and nitroglycerin without relief of symptoms at home. He does have a history of significant coronary artery disease and did have a stent placed in 2019 for a 95% LAD lesion. The patient does not any recent travel history. Movement and food did not seem to improve or worsen his discomfort. Home Medications Medication Instructions Recorded Confirmed Type aspirin 81 mg chewable tablet 81 mg PO QAM 04/19/19 11/16/21 History fluticasone propionate 50 2 spray INTRANASAL QAM 04/19/19 11/16/21 History mcg/actuation nasal spray,suspension (Flonase Allergy Relief) metoprolol succinate 25 mg 25 mg PO QAM 04/19/19 11/16/21 History tablet,extended release 24 hr nitroglycerin 0.4 mg sublingual 0.4 mg SUBLINGUAL UD PRN 04/19/19 11/16/21 History tablet rosuvastatin 40 mg tablet (Crestor) 40 mg PO QAM 04/19/19 11/16/21 History ascorbic acid (vitamin C) 500 mg 500 mg PO QAM 11/16/21 11/16/21 History tablet (Vitamin C) calcium carbonate 300 mg (750 mg) 300 mg PO TID PRN #90 tab 11/16/21 Rx chewable tablet (Tums) multivitamin 1 tab PO QAM 11/16/21 11/16/21 History omega-3 fatty acids-fish oil 684 1 cap PO QAM 11/16/21 11/16/21 History mg-1,200 mg capsule,delayed release pantoprazole 40 mg tablet,delayed 40 mg PO BID #60 tab 11/16/21 Rx release Allergies Allergy/AdvReac Type Severity Reaction Status Date / Time Penicillins AdvReac Mild N/V Verified 11/16/21 00:51 Past Med/Surg History Medical History (Updated 11/17/21 @ 02:09 by Cory Perdomo PA-C) CAD (coronary artery disease) Surgical History History of cardiac cath 2013 History of cataract surgery LEFT History of heart artery stent failed stress test and found blockage -- stent x [address] [facility] and no longer cardiac doctor took plavix for one year and takes metoprolol and crestor Hx of appendectomy Hx of colonoscopy Hx of wisdom tooth extraction Social History Smoking Status: Never smoker Second Hand Exposure: No; Hx Alcohol Use: No Hx Substance Use: No Preferred Language: Citizen Of [place] Communication Ability: Effective Service Delivery Management Consultant Required: No Beliefs That Will Affect Care: None Current Living Situation: Alone Feels Safe at Home: Yes Assistive Devices: None Review of Systems A total of 10 systems reviewed and were otherwise negative Physical Exam Vital Signs Vital Signs - 24 hr 11/16/21 00:37 11/16/21 00:53 11/16/21 01:57 Temperature 36.9 C Temperature Source Temporal Artery Scan Pulse Rate 70 Pulse Rate [Right Finger] 68 Respiratory Rate 19 20 Blood Pressure [Right Arm] 128/79 Blood Pressure Mean [Right Arm] 95 Pulse Oximetry 98 97 97 Oxygen Delivery Method Room Air Room Air Room Air Sepsis Recent Fever Within 48 Hours No Sepsis New/Unexplained Change in Mental Status N/A Sepsis Action Taken by Nursing No Action Required VITALS: Vitals are noted on the nurse's note and reviewed by myself. Vital signs stable. GENERAL: Well-developed, well-nourished, white male, who is uncomfortable appearing on exam. He is intermittently groaning in pain and splinting his chest. HEAD: Normocephalic atraumatic. EARS: External ear normal. External auditory canals clear, tympanic membranes pearly galloway without erythema or effusion bilaterally. EYES: Pupils equal round and reactive to light and accommodation. Conjunctivae without injection, sclerae without icterus. Extraocular movements intact. NOSE: Patent, turbinates without inflammation or discharge. MOUTH: Mucous membranes moist. Tonsils are not enlarged. Pharynx without erythema, blood, or exudate. Uvula midline. Airway patent. NECK: Supple without nuchal rigidity. No lymphadenopathy. No thyromegaly. Cervical spine is nontender. HEART: Regular rate and rhythm without murmurs gallops or rubs. LUNGS: Clear to auscultation bilaterally without wheezes, rales or rhonchi. No retractions or accessory muscle use. ABDOMEN: Positive normal bowel sounds x 4. Soft, nontender, without masses or organomegaly. No guarding or rebound tenderness. MUSCULOSKELETAL: No muscle atrophy, erythema, or edema noted. Full range of motion in all extremities. Course Administered Medications Discontinued Medications Al Hydrox/Mg Hydrox/Simethicone (Gi Cocktail Ed Use) 1 dose PO ONE ONE Stop: 11/16/21 02:06 Last Admin: 11/16/21 02:12 Dose: 1 dose Documented by: [id number] Aspirin (Aspirin Chew 324 Mg) 324 mg PO NOW [facility] Stop: 11/16/21 00:50 Last Admin: 11/16/21 00:58 Dose: 324 mg Documented by: [id number] Aspirin (Aspirin 81 Mg Ectab) [facility] [place] Stop: 12/16/21 13:59 Last Admin: 11/16/21 13:22 Dose: 81 mg Documented by: [id number] Enoxaparin Sodium (Enoxaparin Inj 40 Mg/0.4 Ml Syr) 40 [facility] [place] Stop: 12/16/21 08:59 Last Admin: 11/16/21 08:04 Dose: 40 mg Documented by: [id number] Fluticasone Propionate (Fluticasone Propionate Na Spr 16 Gm Btl) 2 sprays NA ONE ONE Stop: 11/16/21 03:13 Last Admin: 11/16/21 03:42 Dose: 2 sprays Documented by: [id number] Sodium Chloride (Nss 1000ml) 1,000 mls @ 999 mls/hr IV .Q1H1M [facility] Stop: 11/16/21 02:00 Last Infusion: 11/16/21 02:02 Dose: 0 mls/hr Documented by: [id number] Admin: 11/16/21 00:59 Dose: 999 mls/hr Documented by: [id number] Sodium Chloride (Nss 1000ml) 1,000 mls @ 50 mls/hr IV .Q20H ONE Stop: 11/16/21 23:23 Last Admin: 11/16/21 03:43 Dose: 50 mls/hr Documented by: [id number] Ioversol (Optiray 320 125ml) 125 ml IV ONCE ONE Stop: 11/16/21 01:18 Last Admin: 11/16/21 01:17 Dose: 117 ml Documented by: [id number] Metoprolol Succinate (Metoprolol Succ 25mg Ext Rel Tab) 25 mg PO [facility] Stop: 12/16/21 08:59 Last Admin: 11/16/21 08:04 Dose: 25 mg Documented by: [id number] Morphine Sulfate (Morphine Sulfate 4 Mg/Ml 1 Ml Carp\Vial) 4 mg IV Q30M PRN PRN Reason: Pain Stop: 11/30/21 00:48 Last Admin: 11/16/21 01:37 Dose: 4 mg Documented by: [id number] Admin: 11/16/21 00:58 Dose: 4 mg Documented by: [id number] Multivitamins (Multivitamin Tab) 1 tab PO [facility] Stop: 12/16/21 08:59 Last Admin: 11/16/21 08:04 Dose: 1 tab Documented by: [id number] Nitroglycerin (Nitroglycerin 2% Ointment 30gm Tube) 1 inch EXT NOW ONE Stop: 11/16/21 00:50 Last Admin: 11/16/21 00:59 Dose: 1 inch Documented by: [id number] Nitroglycerin (Nitroglycerin Sl 0.4 Mg/Tab Tab) Confirm Administered Dose 0.4 mg .ROUTE .STK-MED ONE Stop: 11/16/21 10:31 Last Admin: 11/16/21 11:35 Dose: Not Given Documented by: [id number] Ondansetron HCl (Ondansetron Inj 2 Mg/Ml 2 Ml Vial) 4 mg IV NOW STA Stop: 11/16/21 00:50 Last Admin: 11/16/21 00:58 Dose: 4 mg Documented by: [id number] Rosuvastatin Calcium (Rosuvastatin Calcium 20 Mg Tab) 40 mg PO [facility] Stop: 12/16/21 08:59 Last Admin: 11/16/21 08:04 Dose: 40 mg Documented by: [id number] Medical Decision Making Differential Diagnosis Differential diagnosis includes, but is not limited to: Myocardial infarction, dysrhythmia, pericarditis, pneumothorax, aortic aneurysm/dissection, DVT/PE, anxiety, GERD, PUD, electrolyte imbalance, thyroid disorder, pneumonia, bronchitis, pancreatitis, and others Laboratory Data Result diagrams: 11/16/21 00:48 11/16/21 00:48 Lab Results 11/16/21 11/16/21 11/16/21 Range/Units 00:48 00:48 00:48 WBC 15.05 H (4.8-10.8) K/uL RBC 5.19 (4.7-6.1) M/uL Hgb 15.8 (14.0-18.0) g/dL POC Hgb (14.0-18.0) g/dl Hct 46.2 (42-52) % POC Hct (42-52) % MCV 89.0 (80-100) fL MCH 30.4 (25-34) pg MCHC 34.2 (32-36) g/dL RDW Std Deviation 42.9 (36.4-46.3) fL RDW Coeff of Rebeca 13.1 (11.5-14.5) % Plt Count 281 (130-400) K/uL MPV 9.6 (7.4-10.4) fL Immature Gran % (Auto) 0.1 % Neut % (Auto) 72.3 % Lymph % (Auto) 10.9 % [place] % (Auto) 13.4 % Eos % (Auto) 3.1 % Baso % (Auto) 0.2 % Neut # (Auto) 10.89 H (1.4-6.5) K/uL Lymph # (Auto) 1.64 (1.2-3.4) K/uL [place] # (Auto) 2.01 H (0.11-0.59) K/uL Eos # (Auto) 0.46 (0-0.5) K/uL Baso # (Auto) 0.03 (0-0.2) K/uL Immature Gran # (Auto) 0.02 (0.00-0.02) K/uL PT 10.8 (9.0-12.0) Seconds INR 1.0 (0.9-1.1) APTT 26.8 (21.0-31.0) Seconds PTT Ratio 1.0 POC Sodium (135-144) mmol/L Sodium 138 (136-145) mmol/L POC Potassium (3.3-5.0) mmol/L Potassium 4.4 (3.5-5.1) mmol/L POC Chloride (101-112) mmol/L Chloride 103 (98-107) mmol/L Carbon Dioxide 25 (21-32) mmol/L POC Total CO2 (24-31) mmol/L Anion Gap 10 (3-11) POC Anion Gap (16-25) mmol/L POC BUN (7-18) mg/dl BUN 20 (6-23) mg/dl Creatinine 0.99 (0.6-1.4) mg/dl POC Creatinine (0.6-1.3) mg/dl Est Cr Clr Drug Dosing 70.7 ml/min Est GFR ( Amer) 96.9 ml/min Est GFR (Non-Af Amer) 83.6 ml/min BUN/Creatinine Ratio 20.2 H (10-20) Glucose 128 H (70-99(Fasting)) mg/dl POC Glucose (other) (70-99) mg/dl Estimat Average Glucose mg/dl Hemoglobin A1c (4.5-5.6) % Calcium 9.3 (8.5-10.1) mg/dl POC Ioniz Calcium Ofe (1.12-1.32) mmol/l Magnesium (1.7-2.4) mg/dl Total Bilirubin 0.9 (0.2-1.0) mg/dl AST 24 (13-39) U/L ALT 20 (7-52) U/L Alkaline Phosphatase 62 (34-104) U/L Troponin I < 0.03 (0-0.04) ng/ml Total Protein 7.3 (6.0-8.3) gm/dl Albumin 4.3 (3.4-5.0) gm/dl Globulin 3.0 (2.5-4.0) gm/dl Albumin/Globulin Ratio 1.4 (0.9-2) Lipase 65 (11-82) U/L SARS-CoV-2, RNA, NAAT (NEGATIVE) 11/16/21 11/16/21 11/16/21 Range/Units 00:48 00:48 01:00 WBC (4.8-10.8) K/uL RBC (4.7-6.1) M/uL Hgb (14.0-18.0) g/dL POC Hgb (14.0-18.0) g/dl Hct (42-52) % POC Hct (42-52) % MCV (80-100) fL MCH (25-34) pg MCHC (32-36) g/dL RDW Std Deviation (36.4-46.3) fL RDW Coeff of Rebeca (11.5-14.5) % Plt Count (130-400) K/uL MPV (7.4-10.4) fL Immature Gran % (Auto) % Neut % (Auto) % Lymph % (Auto) % [place] % (Auto) % Eos % (Auto) % Baso % (Auto) % Neut # (Auto) (1.4-6.5) K/uL Lymph # (Auto) (1.2-3.4) K/uL Kitt[place] # (Auto) (0.11-0.59) K/uL Eos # (Auto) (0-0.5) K/uL Baso # (Auto) (0-0.2) K/uL Immature Gran # (Auto) (0.00-0.02) K/uL PT (9.0-12.0) Seconds INR (0.9-1.1) APTT (21.0-31.0) Seconds PTT Ratio POC Sodium (135-144) mmol/L Sodium (136-145) mmol/L POC Potassium (3.3-5.0) mmol/L Potassium (3.5-5.1) mmol/L POC Chloride (101-112) mmol/L Chloride (98-107) mmol/L Carbon Dioxide (21-32) mmol/L POC Total CO2 (24-31) mmol/L Anion Gap (3-11) POC Anion Gap (16-25) mmol/L POC BUN (7-18) mg/dl BUN (6-23) mg/dl Creatinine (0.6-1.4) mg/dl POC Creatinine (0.6-1.3) mg/dl Est Cr Clr Drug Dosing ml/min Est GFR ( Amer) ml/min Est GFR (Non-Af Amer) ml/min BUN/Creatinine Ratio (10-20) Glucose (70-99(Fasting)) mg/dl POC Glucose (other) (70-99) mg/dl Estimat Average Glucose 128 mg/dl Hemoglobin A1c 6.1 H (4.5-5.6) % Calcium (8.5-10.1) mg/dl POC Ioniz Calcium Ofe (1.12-1.32) mmol/l Magnesium 1.9 (1.7-2.4) mg/dl Total Bilirubin (0.2-1.0) mg/dl AST (13-39) U/L ALT (7-52) U/L Alkaline Phosphatase (34-104) U/L Troponin I (0-0.04) ng/ml Total Protein (6.0-8.3) gm/dl Albumin (3.4-5.0) gm/dl Globulin (2.5-4.0) gm/dl Albumin/Globulin Ratio (0.9-2) Lipase (11-82) U/L SARS-CoV-2, RNA, NAAT NEGATIVE (NEGATIVE) 11/16/21 Range/Units 01:01 WBC (4.8-10.8) K/uL RBC (4.7-6.1) M/uL Hgb (14.0-18.0) g/dL POC Hgb 16.0 (14.0-18.0) g/dl Hct (42-52) % POC Hct 47 (42-52) % MCV (80-100) fL MCH (25-34) pg MCHC (32-36) g/dL RDW Std Deviation (36.4-46.3) fL RDW Coeff of Rebeca (11.5-14.5) % Plt Count (130-400) K/uL MPV (7.4-10.4) fL Immature Gran % (Auto) % Neut % (Auto) % Lymph % (Auto) % Kittson % (Auto) % Eos % (Auto) % Baso % (Auto) % Neut # (Auto) (1.4-6.5) K/uL Lymph # (Auto) (1.2-3.4) K/uL [place] # (Auto) (0.11-0.59) K/uL Eos # (Auto) (0-0.5) K/uL Baso # (Auto) (0-0.2) K/uL Immature Gran # (Auto) (0.00-0.02) K/uL PT (9.0-12.0) Seconds INR (0.9-1.1) APTT (21.0-31.0) Seconds PTT Ratio POC Sodium 138 (135-144) mmol/L Sodium (136-145) mmol/L POC Potassium 3.8 (3.3-5.0) mmol/L Potassium (3.5-5.1) mmol/L POC Chloride 102 (101-112) mmol/L Chloride (98-107) mmol/L Carbon Dioxide (21-32) mmol/L POC Total CO2 25 (24-31) mmol/L Anion Gap (3-11) POC Anion Gap 16.0 (16-25) mmol/L POC BUN 22 H (7-18) mg/dl BUN (6-23) mg/dl Creatinine (0.6-1.4) mg/dl POC Creatinine 1.2 (0.6-1.3) mg/dl Est Cr Clr Drug Dosing ml/min Est GFR ( Amer) ml/min Est GFR (Non-Af Amer) ml/min BUN/Creatinine Ratio (10-20) Glucose (70-99(Fasting)) mg/dl POC Glucose (other) 143 H (70-99) mg/dl Estimat Average Glucose mg/dl Hemoglobin A1c (4.5-5.6) % Calcium (8.5-10.1) mg/dl POC Ioniz Calcium Ofe 1.10 L (1.12-1.32) mmol/l Magnesium (1.7-2.4) mg/dl Total Bilirubin (0.2-1.0) mg/dl AST (13-39) U/L ALT (7-52) U/L Alkaline Phosphatase (34-104) U/L Troponin I (0-0.04) ng/ml Total Protein (6.0-8.3) gm/dl Albumin (3.4-5.0) gm/dl Globulin (2.5-4.0) gm/dl Albumin/Globulin Ratio (0.9-2) Lipase (11-82) U/L SARS-CoV-2, RNA, NAAT (NEGATIVE) Imaging Data Radiologist's Impression: Chest CTA 11/16/21 00:49 CT angio chest dissec wo/w con CLINICAL HISTORY: pain TECHNIQUE: Multidetector row helical CT of the chest was performed before and after injection of IV contrast. Coronal and sagittal reformations were obtained. Automated dose lowering techniques and/or adjustment according to patient size were utilized for this exam. Comparison: Comparison is made to CT thorax 01/26/2010 FINDINGS: Lungs and pleura: There is a 13 mm nodule in the left lower lobe (series 4 image 141). Heart and pericardium: Heart size is normal. No pericardial effusion. Vessels: No aortic dissection is seen. Moderate atherosclerotic calcification is seen. There is a trace of gas in the pulmonary trunk, likely secondary to venous injection. Mediastinum and gisele: Unremarkable. Chest wall and lower neck: Unremarkable. Abdomen: Cholelithiasis is seen without evidence of cholecystitis. Diverticulosis is seen without evidence of diverticulitis. Bones: Unremarkable. IMPRESSION: 1. No acute abnormality and in particular no evidence of acute aortic injury. 2. 13 mm nodule in the left lower lobe, which was not seen in 2009. In the 05/31/2019 CT abdomen pelvis, there is a 4 mm nodule at this site. This finding is suspicious for malignancy and PET/CT or tissue sampling can be performed on a nonemergent basis. ACT 112: Positive. There are findings on this exam that require communication between the performing entity and the patient following Patient Test Result Information Act ([place] Act 112) guidelines. Electronically signed by: Abisai John M.D. 11/16/2021 7:33 AM Chest X-Ray 11/16/21 00:51 XR chest 1V portable HISTORY: 56 years-old Male Chest pain . Acute atypical chest pain COMPARISON: CTA chest of same day TECHNIQUE: Portable AP view of the chest FINDINGS: The cardiac silhouette is enlarged. No pneumothorax, pleural effusion, airspace consolidation or overt pulmonary edema. The solid pulmonary nodule measuring o theodore 1 cm within the left lower lobe seen on the CT chest study of same day is not well visualized by radiography. Bones appear grossly intact. Healed chronic bilateral rib fractures. IMPRESSION: Cardiomegaly without acute process. ACT 112: Negative or not required by law. The above report was generated using voice recognition software. It may contain grammatical, syntax or spelling errors. Electronically signed by: Tushar Martinez M.D. 11/16/2021 7:23 AM MDM Narrative Physical exam and history were performed. Nursing notes, EMR, and Medication List were personally reviewed. Patient appears to have chest pain symptoms bringing him to the ER. The patient is acting in fairly significant discomfort. He is splinting his chest at times and moaning out in pain. EKG is without acute ST elevation. IV access was esta blished and labs were obtained. He was hydrated with normal saline and given IV morphine, IV Zofran, a full dose of aspirin, and Nitropaste. The patient was sent to CT scan for dissection study. An order was placed for continuous cardiac monitoring. The monitor shows a rate of 68 with normal sinus rhythm. The patient's blood work is as above and was reviewed. He does have an elevated white count of 15,000. He does not have significant anemia, bandemia, or gross electrolyte imbalance. INR is 1.0. Lipase and transaminases are not diagnostic. Initial troponin x1 is negative. CT scan was reviewed by myself and radiology showing no obvious acute process. On reevaluation the patient continues with pain. He was given a GI cocktail without significant relief of pain. He states the morphine seems to be helping his discomfort, but nothing else. Overall the patient does not appear well for discharge home. He is with significant atherosclerotic and coronary artery disease. I do feel he will need additional testing before it is reasonable to send him home based on his history. The case was discussed with the [facility] hospitalist team who agreed to evaluate the patient here in the ER. Please see their dictation for further patient course, plan, disposition. Of note on reread of the CT scan the patient does have a very atypical appearing pulmonary nodule. This was addressed by the hospital team. The chart was completed utilizing [employer] Speech Voice Recognition Software. Grammatical errors, random word insertions, pronoun errors, and incomplete sentences are an occasional consequence of this system due to software limitations, ambient noise, and hardware issues. Any formal questions or concerns about the content, text, or information contained within the body of this dictation should be directly addressed to the provider for clarification. . Impression & Plan Atypical chest pain, Unstable angina, CAD (coronary artery disease), Pulmonary nodule Discharge Plan Visit Data Chief Complaint: Chest Pain Stated Complaint: CHEST PAIN ED Provider: Muna Love ED Midlevel Provider: Cory Perdomo Discharge Problem: Atypical chest pain, Unstable angina, CAD (coronary artery disease), Pulmonary nodule Patient Disposition: Admitted As Inpatient Discharge Instructions Interventions: ED Discharge Assessment Last Done: 11/16/21 04:16
[2021-11-16] MEDS ORDERED: SODIUM CHLORIDE 0.9% 1000ML 1,000 ML IV ONE (03:24)
[2021-11-16 04:05] LABS: Influenza A virus by PCR Negative (Negative); Influenza B virus by PCR Negative (Negative)
[2021-11-16 04:25] LABS: Troponin I < 0.03 ng/ml (0-0.04)
[2021-11-16 04:27] LABS: C Reactive Protein 7.64 mg/dl (0-0.5)
[2021-11-16] MEDS ORDERED: LORazepam 2 MG/1 ML VIAL IV PRN (04:46)
[2021-11-16] MEDS ORDERED: MoRPHine SULFATE 4 MG/ML 1 ML CARP\\VIAL IV PRN (04:46)
[2021-11-16] MEDS ORDERED: ACETAMINOPHEN 325 MG TAB PO PRN (04:46)
[2021-11-16] MEDS ORDERED: traMADol HCL 50 MG TABLET PO PRN (04:46)
[2021-11-16 07:17] LABS: Estimated Average Glucose 128 mg/dl; Hemoglobin A1C 6.1 % (4.5-5.6)
--- NOTE | 2021-11-16 07:25 | XRay Report ---
XR chest 1V portable HISTORY: 56 years-old Male Chest pain . Acute atypical chest pain COMPARISON: CTA chest of same day TECHNIQUE: Portable AP view of the chest FINDINGS: The cardiac silhouette is enlarged. No pneumothorax, pleural effusion, airspace consolidation or over t pulmonary edema. The solid pulmonary nodule measuring over 1 cm within the left lower lobe seen on the CT chest study of same day is not well visualized by radiography. Bones appear grossly intact. He aled chronic bilateral rib fractures. IMPRESSION: Cardiomegaly without acute process. ACT 112: Negative or not required by law. The above report was generated using voice recognition software. It may contain grammatical, syntax o r spelling errors. Electronically signed by: Tushar Martinez M.D. 11/16/2021 7:23 AM
--- NOTE | 2021-11-16 07:35 | CT Scan Report ---
CT angio chest dissec wo/w con CLINICAL HISTORY: pain TECHNIQUE: Multidetector row helical CT of the chest was performed before and after injection of IV c ontrast. Coronal and sagittal reformations were obtained. Automated dose lowering techniques and/or a djustment according to patient size were utilized for this exam. Comparison: Comparison is made to CT thorax 01/26/2010 FINDINGS: Lungs and pleura: There is a 13 mm nodule in the left lower lobe (series 4 image 141). Heart and pericardium: Heart size is normal. No pericardial effusion. Vessels: No aortic dissection is seen. Moderate atherosclerotic calcification is seen. There is a tra ce of gas in the pulmonary trunk, likely secondary to venous injection. Mediastinum and gisele: Unremarkable. Chest wall and lower neck: Unremarkable. Abdomen: Cholelithiasis is seen without evidence of cholecystitis. Diverticulosis is seen without terrell dence of diverticulitis. Bones: Unremarkable. IMPRESSION: 1. No acute abnormality and in particular no evidence of acute aortic injury. 2. 13 mm nodule in the left lower lobe, which was not seen in 2009. In the 05/31/2019 CT abdomen pel vis, there is a 4 mm nodule at this site. This finding is suspicious for malignancy and PET/CT or tis marlon sampling can be performed on a nonemergent basis. ACT 112: Positive. There are findings on this exam that require communication between the performing entity and the patient following Patient Test Result Information Act [place] Act 112) guidelines. Electronically signed by: Abisai John M.D. 11/16/2021 7:33 AM
--- NOTE | 2021-11-16 08:14 | Cardiology Consultation ---
Date of Consultation November 16, 2021 Assessment & Plan (1) CAD (coronary artery disease): (2) Atypical chest pain: (3) S/P coronary artery stent placement: (4) Pulmonary nodule: Patient admitted for chest pain, atypical for angina. However he recently reported chest pain with shoveling snow during outpatient office visit. Stress testing was recommended but declined due to insurance issues. His EKG was without acute ischemic changes on admission. Troponin negative x3 since admission. Chest pain now resolved. Given his history of PCI x2 to the LAD and possible anginal symptoms over the last few months, recommend proceeding with exercise stress echo to r/o inducible ischemia. Patient is agreeable. Further recommendations pending review of exercise stress echo. In the meantime, he will continue ASA, statin, metoprolol. He was incidentally found to have an enlarging pulm nodule in the left lower lobe on chest CTA. Nodule appears Larger compared to 2019 study, now measuring 1.3 cm, was 4 mm in 2019. Consider pulm evaluation. He has a remote history of tobacco abuse. This will need followed and further evaluated. Case discussed with Dr. Aj. Supervising Physician Co-Signing Physician Notes Patient seen and examined at the bedside. No recurrent chest discomfort since admission. Stress test performed earlier today without complication. Offers no other concerns/complaints. Telemetry reveals sinus rhythm ranging from 60-75 bpm. No dysrhythmias. PE: VSS. Gen: NAD, AAO x 3. Heart: Regular, normal S1S2, no murmur. Lungs: Scattered rhonchi bilateral, no rales or wheeze. Extremities: No edema. Neuro: No focal deficit. A/P: 56-year-old patient admitted with atypical chest discomfort. Exercise stress echo negative for inducible ischemia denoting a low risk for obstructive coronary disease. No evidence of acute coronary syndrome. There is no pericardial effusion per CT or echocardiogram. 13 mm lung nodule discovered. Further evaluation as per pulmonary medicine. Cardiology will sign off. Please call with questions. History of Present Illness Reason for Consultation: Chest pain; CAD Requesting Physician: Dr. Moraes Attending Physician: Dr. Aj History of Present Illness Patient is a 56 year old male known to [facility] (Dr. 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 Other history includes dyslipidemia. He was evaluated in clinic earlier this month by Dr. Richardson after developing substernal chest pain while shoveling snow, symptoms resolving after 3 SL nitro. He chose not to go to the ER due to insurance issues per outpatient clinic notes. EKG in the office was unremarkable. Patient did not wish to proceed with additional testing due to insurance as well. Metoprolol was increased to 25 mg daily for anginal symptoms. He was instructed to go to ER if he had recurrent symptoms. Patient reports he worked outside in the cold all day yesterday. When he returned home last evening he felt reportedly did not feel well with nausea and generalized weakness. Several hours later he reportedly developed "severe chest pain" located substernally without radiation. He notes SOB at the time. He tried 3 SL nitro without relief. He tried heating pad without relief. He came to the ER for persistent chest pain. In ER, EKG was without acute changes. Serial troponin was unremarkable. ESR was elevated. CRP was elevated. Symptoms resolved with morphine. He denied pleuritic chest pain. NO fever or cough. he had chest CTA which was negative for Pulm Emboli but reported enlarging left lung nodule at 1.3 cm, increased from 4 mm in 2019 that likely requires additional imaging/testing. At time of consult, patient resting in bed comfortably. No recurrent chest pain. He notes feeling tired from lack of sleep. No SOB. Had mild cough this morning, but now improving. No dizziness or lightheadedness. Is NPO currently. Allergies Allergy/AdvReac Type Severity Reaction Status Date / Time Penicillins AdvReac Mild N/V Verified 11/16/21 00:51 Home Medications Medication Instructions Recorded Confirmed Type aspirin 81 mg chewable tablet 81 mg PO QAM 04/19/19 11/16/21 History fluticasone propionate 50 2 spray INTRANASAL QAM 04/19/19 11/16/21 History mcg/actuation nasal spray,suspension (Flonase Allergy Relief) metoprolol succinate 25 mg 25 mg PO QAM 04/19/19 11/16/21 History tablet,extended release 24 hr nitroglycerin 0.4 mg sublingual 0.4 mg SUBLINGUAL UD PRN 04/19/19 11/16/21 History tablet rosuvastatin 40 mg tablet (Crestor) 40 mg PO QAM 04/19/19 11/16/21 History ascorbic acid (vitamin C) 500 mg 500 mg PO QAM 11/16/21 11/16/21 History tablet (Vitamin C) multivitamin 1 tab PO QAM 11/16/21 11/16/21 History omega-3 fatty acids-fish oil 684 1 cap PO QAM 11/16/21 11/16/21 History mg-1,200 mg capsule,delayed release Patient History Medical History (Updated 11/16/21 @ 10:50 by Sulma Sheth PA-C) CAD (coronary artery disease) Surgical History History of cardiac cath 2013 History of cataract surgery LEFT History of heart artery stent failed stress test and found blockage -- stent x 1 2013 done [facility] and no longer cardiac doctor took plavix for one year and takes metoprolol and crestor Hx of appendectomy Hx of colonoscopy Hx of wisdom tooth extraction Social History Smoking Status: Never smoker Second Hand Exposure: No; Hx Alcohol Use: No Hx Substance Use: No Preferred Language: Citizen Of [place] Communication Ability: Effective Cold Mill 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 Required: No Beliefs That Will Affect Care: None Current Living Situation: Alone Other Information That Helps Us Care for You: No Feels Safe at Home: Yes Safety Concerns: Feels Safe At This Time Assistive Devices: Glasses Review of Systems Review of Systems: All systems reviewed & are unremarkable except as noted in HPI & below Physical Exam Constitutional: WD/WN, vitals as above Respiratory: normal respiratory effort, lungs clear to auscultation Cardiovascular: Rate/Rhythm: regular rate and regular rhythm Heart Sounds: normal S1 and normal S2; no murmur Vessels: no JVD Extremities: no edema Gastrointestinal (Abdomen): normal bowel sounds, soft, nontender, no hepatosplenomegaly Musculoskeletal: no cyanosis or clubbing, extremities motor strength 5/5 Neurologic: PERRL, EOMI, accommodation nl, no face palsy, no dysarthria Psychiatric: A+Ox3, euthymic affect Results & Data ([facility]) Vital Signs (Past 12 Hours) Vital Signs Temp Pulse Pulse Resp BP Pulse Ox 11/16/21 08:02 36.5 C 68 18 119/71 94 11/16/21 07:11 65 11/16/21 04:35 76 11/16/21 04:30 36.4 C L 72 18 118/75 93 11/16/21 04:00 62 19 120/83 99 11/16/21 01:57 68 20 128/79 97 11/16/21 00:53 97 11/16/21 00:37 36.9 C 70 19 98 Laboratory Results 11/16/21 11/16/21 11/16/21 Range/Units 07:43 03:55 03:55 WBC (4.8-10.8) K/uL RBC (4.7-6.1) M/uL Hgb (14.0-18.0) g/dL POC Hgb (14.0-18.0) g/dl Hct (42-52) % POC Hct (42-52) % MCV (80-100) fL MCH (25-34) pg MCHC (32-36) g/dL RDW Std Deviation (36.4-46.3) fL RDW Coeff of Rebeca (11.5-14.5) % Plt Count (130-400) K/uL MPV (7.4-10.4) fL Immature Gran % (Auto) % Neut % (Auto) % Lymph % (Auto) % [place] % (Auto) % Eos % (Auto) % Baso % (Auto) % Neut # (Auto) (1.4-6.5) K/uL Lymph # (Auto) (1.2-3.4) K/uL [place] # (Auto) (0.11-0.59) K/uL Eos # (Auto) (0-0.5) K/uL Baso # (Auto) (0-0.2) K/uL Immature Gran # (Auto) (0.00-0.02) K/uL ESR (0-20) mm/hr PT (9.0-12.0) Seconds INR (0.9-1.1) APTT (21.0-31.0) Seconds PTT Ratio POC Sodium (135-144) mmol/L Sodium (136-145) mmol/L POC Potassium (3.3-5.0) mmol/L Potassium (3.5-5.1) mmol/L POC Chloride (101-112) mmol/L Chloride (98-107) mmol/L Carbon Dioxide (21-32) mmol/L POC Total CO2 (24-31) mmol/L Anion Gap (3-11) POC Anion Gap (16-25) mmol/L POC BUN (7-18) mg/dl BUN (6-23) mg/dl Creatinine (0.6-1.4) mg/dl POC Creatinine (0.6-1.3) mg/dl Est Cr Clr Drug Dosing ml/min Est GFR ( Amer) ml/min Est GFR (Non-Af Amer) ml/min BUN/Creatinine Ratio (10-20) Glucose (70-99(Fasting)) mg/dl POC Glucose (other) (70-99) mg/dl Estimat Average Glucose mg/dl Hemoglobin A1c (4.5-5.6) % Calcium (8.5-10.1) mg/dl POC Ioniz Calcium Ofe (1.12-1.32) mmol/l Magnesium (1.7-2.4) mg/dl Total Bilirubin (0.2-1.0) mg/dl AST (13-39) U/L ALT (7-52) U/L Alkaline Phosphatase (34-104) U/L Troponin I Pending < 0.03 (0-0.04) ng/ml C-Reactive Protein 7.64 H (0-0.5) mg/dl Total Protein (6.0-8.3) gm/dl Albumin (3.4-5.0) gm/dl Globulin (2.5-4.0) gm/dl Albumin/Globulin Ratio (0.9-2) Lipase (11-82) U/L TSH 1.082 (0.300-4.500) uIu/ml Influ A Molecular Assay (Negative) Influ B Molecular Assay (Negative) SARS-CoV-2, RNA, NAAT (NEGATIVE) 11/16/21 11/16/21 11/16/21 Range/Units 03:55 03:41 01:01 WBC (4.8-10.8) K/uL RBC (4.7-6.1) M/uL Hgb (14.0-18.0) g/dL POC Hgb 16.0 (14.0-18.0) g/dl Hct (42-52) % POC Hct 47 (42-52) % MCV (80-100) fL MCH (25-34) pg MCHC (32-36) g/dL RDW Std Deviation (36.4-46.3) fL RDW Coeff of Rebeca (11.5-14.5) % Plt Count (130-400) K/uL MPV (7.4-10.4) fL Immature Gran % (Auto) % Neut % (Auto) % Lymph % (Auto) % [place] % (Auto) % Eos % (Auto) % Baso % (Auto) % Neut # (Auto) (1.4-6.5) K/uL Lymph # (Auto) (1.2-3.4) K/uL [place] # (Auto) (0.11-0.59) K/uL Eos # (Auto) (0-0.5) K/uL Baso # (Auto) (0-0.2) K/uL Immature Gran # (Auto) (0.00-0.02) K/uL ESR 32 H (0-20) mm/hr PT (9.0-12.0) Seconds INR (0.9-1.1) APTT (21.0-31.0) Seconds PTT Ratio POC Sodium 138 (135-144) mmol/L Sodium (136-145) mmol/L POC Potassium 3.8 (3.3-5.0) mmol/L Potassium (3.5-5.1) mmol/L POC Chloride 102 (101-112) mmol/L Chloride (98-107) mmol/L Carbon Dioxide (21-32) mmol/L POC Total CO2 25 (24-31) mmol/L Anion Gap (3-11) POC Anion Gap 16.0 (16-25) mmol/L POC BUN 22 H (7-18) mg/dl BUN (6-23) mg/dl Creatinine (0.6-1.4) mg/dl POC Creatinine 1.2 (0.6-1.3) mg/dl Est Cr Clr Drug Dosing ml/min Est GFR ( Amer) ml/min Est GFR (Non-Af Amer) ml/min BUN/Creatinine Ratio (10-20) Glucose (70-99(Fasting)) mg/dl POC Glucose (other) 143 H (70-99) mg/dl Estimat Average Glucose mg/dl Hemoglobin A1c (4.5-5.6) % Calcium (8.5-10.1) mg/dl POC Ioniz Calcium Ofe 1.10 L (1.12-1.32) mmol/l Magnesium (1.7-2.4) mg/dl Total Bilirubin (0.2-1.0) mg/dl AST (13-39) U/L ALT (7-52) U/L Alkaline Phosphatase (34-104) U/L Troponin I (0-0.04) ng/ml C-Reactive Protein (0-0.5) mg/dl Total Protein (6.0-8.3) gm/dl Albumin (3.4-5.0) gm/dl Globulin (2.5-4.0) gm/dl Albumin/Globulin Ratio (0.9-2) Lipase (11-82) U/L TSH (0.300-4.500) uIu/ml Influ A Molecular Assay Negative (Negative) Influ B Molecular Assay Negative (Negative) SARS-CoV-2, RNA, NAAT (NEGATIVE) 11/16/21 11/16/21 11/16/21 Range/Units 01:00 00:48 00:48 WBC (4.8-10.8) K/uL RBC (4.7-6.1) M/uL Hgb (14.0-18.0) g/dL POC Hgb (14.0-18.0) g/dl Hct (42-52) % POC Hct (42-52) % MCV (80-100) fL MCH (25-34) pg MCHC (32-36) g/dL RDW Std Deviation (36.4-46.3) fL RDW Coeff of Rebeca (11.5-14.5) % Plt Count (130-400) K/uL MPV (7.4-10.4) fL Immature Gran % (Auto) % Neut % (Auto) % Lymph % (Auto) % [place] % (Auto) % Eos % (Auto) % Baso % (Auto) % Neut # (Auto) (1.4-6.5) K/uL Lymph # (Auto) (1.2-3.4) K/uL [place] # (Auto) (0.11-0.59) K/uL Eos # (Auto) (0-0.5) K/uL Baso # (Auto) (0-0.2) K/uL Immature Gran # (Auto) (0.00-0.02) K/uL ESR (0-20) mm/hr PT (9.0-12.0) Seconds INR (0.9-1.1) APTT (21.0-31.0) Seconds PTT Ratio POC Sodium (135-144) mmol/L Sodium (136-145) mmol/L POC Potassium (3.3-5.0) mmol/L Potassium (3.5-5.1) mmol/L POC Chloride (101-112) mmol/L Chloride (98-107) mmol/L Carbon Dioxide (21-32) mmol/L POC Total CO2 (24-31) mmol/L Anion Gap (3-11) POC Anion Gap (16-25) mmol/L POC BUN (7-18) mg/dl BUN (6-23) mg/dl Creatinine (0.6-1.4) mg/dl POC Creatinine (0.6-1.3) mg/dl Est Cr Clr Drug Dosing ml/min Est GFR ( Amer) ml/min Est GFR (Non-Af Amer) ml/min BUN/Creatinine Ratio (10-20) Glucose (70-99(Fasting)) mg/dl POC Glucose (other) (70-99) mg/dl Estimat Average Glucose 128 mg/dl Hemoglobin A1c 6.1 H (4.5-5.6) % Calcium (8.5-10.1) mg/dl POC Ioniz Calcium Ofe (1.12-1.32) mmol/l Magnesium 1.9 (1.7-2.4) mg/dl Total Bilirubin (0.2-1.0) mg/dl AST (13-39) U/L ALT (7-52) U/L Alkaline Phosphatase (34-104) U/L Troponin I (0-0.04) ng/ml C-Reactive Protein (0-0.5) mg/dl Total Protein (6.0-8.3) gm/dl Albumin (3.4-5.0) gm/dl Globulin (2.5-4.0) gm/dl Albumin/Globulin Ratio (0.9-2) Lipase (11-82) U/L TSH (0.300-4.500) uIu/ml Influ A Molecular Assay (Negative) Influ B Molecular Assay (Negative) SARS-CoV-2, RNA, NAAT NEGATIVE (NEGATIVE) 11/16/21 11/16/21 11/16/21 Range/Units 00:48 00:48 00:48 WBC 15.05 H (4.8-10.8) K/uL RBC 5.19 (4.7-6.1) M/uL Hgb 15.8 (14.0-18.0) g/dL POC Hgb (14.0-18.0) g/dl Hct 46.2 (42-52) % POC Hct (42-52) % MCV 89.0 (80-100) fL MCH 30.4 (25-34) pg MCHC 34.2 (32-36) g/dL RDW Std Deviation 42.9 (36.4-46.3) fL RDW Coeff of Rebeca 13.1 (11.5-14.5) % Plt Count 281 (130-400) K/uL MPV 9.6 (7.4-10.4) fL Immature Gran % (Auto) 0.1 % Neut % (Auto) 72.3 % Lymph % (Auto) 10.9 % [place] % (Auto) 13.4 % Eos % (Auto) 3.1 % Baso % (Auto) 0.2 % Neut # (Auto) 10.89 H (1.4-6.5) K/uL Lymph # (Auto) 1.64 (1.2-3.4) K/uL [place] # (Auto) 2.01 H (0.11-0.59) K/uL Eos # (Auto) 0.46 (0-0.5) K/uL Baso # (Auto) 0.03 (0-0.2) K/uL Immature Gran # (Auto) 0.02 (0.00-0.02) K/uL ESR (0-20) mm/hr PT 10.8 (9.0-12.0) Seconds INR 1.0 (0.9-1.1) APTT 26.8 (21.0-31.0) Seconds PTT Ratio 1.0 POC Sodium (135-144) mmol/L Sodium 138 (136-145) mmol/L POC Potassium (3.3-5.0) mmol/L Potassium 4.4 (3.5-5.1) mmol/L POC Chloride (101-112) mmol/L Chloride 103 (98-107) mmol/L Carbon Dioxide 25 (21-32) mmol/L POC Total CO2 (24-31) mmol/L Anion Gap 10 (3-11) POC Anion Gap (16-25) mmol/L POC BUN (7-18) mg/dl BUN 20 (6-23) mg/dl Creatinine 0.99 (0.6-1.4) mg/dl POC Creatinine (0.6-1.3) mg/dl Est Cr Clr Drug Dosing 70.7 ml/min Est GFR ( Amer) 96.9 ml/min Est GFR (Non-Af Amer) 83.6 ml/min BUN/Creatinine Ratio 20.2 H (10-20) Glucose 128 H (70-99(Fasting)) mg/dl POC Glucose (other) (70-99) mg/dl Estimat Average Glucose mg/dl Hemoglobin A1c (4.5-5.6) % Calcium 9.3 (8.5-10.1) mg/dl POC Ioniz Calcium Ofe (1.12-1.32) mmol/l Magnesium (1.7-2.4) mg/dl Total Bilirubin 0.9 (0.2-1.0) mg/dl AST 24 (13-39) U/L ALT 20 (7-52) U/L Alkaline Phosphatase 62 (34-104) U/L Troponin I < 0.03 (0-0.04) ng/ml C-Reactive Protein (0-0.5) mg/dl Total Protein 7.3 (6.0-8.3) gm/dl Albumin 4.3 (3.4-5.0) gm/dl Globulin 3.0 (2.5-4.0) gm/dl Albumin/Globulin Ratio 1.4 (0.9-2) Lipase 65 (11-82) U/L TSH (0.300-4.500) uIu/ml Influ A Molecular Assay (Negative) Influ B Molecular Assay (Negative) SARS-CoV-2, RNA, NAAT (NEGATIVE) Diagnostic Findings Telemetry reviewed: NSR 60-70 bpm. No arrhythmias EKG on admission: Normal sinus rhythm Normal ECG When compared with prior EKG in Aug 2019, no significant change was found Chest xray on admission: IMPRESSION: Cardiomegaly without acute process. Chest CTA of the chest on admission: IMPRESSION: 1. No acute abnormality and in particular no evidence of acute aortic injury. 2. 13 mm nodule in the left lower lobe, which was not seen in 2010. In the 05/31/2019 CT abdomen pelvis, there is a 4 mm nodule at this site. This finding is suspicious for malignancy and PET/CT or tissue sampling can be performed on a nonemergent basis. March 2020 Echo report reviewed: Interpretation Summary The examination is adequate to evaluate the referral indication. The qualitative LV ejection fraction is 55-59% (normal). The left ventricular wall motion is normal. The left ventricular diastolic function is normal. Mild tricuspid regurgitation is present. There is no evidence of pulmonary hypertension. Cardia cath report reviewed from Aug 2019: Prox LAD stent is patent 95% mid LAD stenosis, for which he received PCI with ÓSCAR Medications Administered Current Inpatient Medications Acetaminophen (Acetaminophen 325 Mg Tab) 650 mg PO Q4H PRN PRN Reason: Pain or Fever Stop: 12/16/21 04:45 Aspirin (Aspirin 81 Mg Ectab) 81 mg PO [facility] Stop: 12/16/21 13:59 Enoxaparin Sodium (Enoxaparin Inj 40 Mg/0.4 Ml Syr) 40 mg SQ [facility] Stop: 12/16/21 08:59 Last Admin: 11/16/21 08:04 Dose: 40 mg Documented by: Fluticasone Propionate (Fluticasone Propionate Na Spr 16 Gm Btl) 2 sprays NA HS [facility] Stop: 12/16/21 20:59 Sodium Chloride (Nss 1000ml) 1,000 mls @ 50 mls/hr IV .Q20H ONE Stop: 11/16/21 23:23 Last Admin: 11/16/21 03:43 Dose: 50 mls/hr Documented by: Lorazepam (Lorazepam 2 Mg/1 Ml Vial) 0.5 mg IV Q4H PRN PRN Reason: Anxiety Stop: 12/16/21 04:45 Metoprolol Succinate (Metoprolol Succ 25mg Ext Rel Tab) [facility] Stop: 12/16/21 08:59 Last Admin: 11/16/21 08:04 Dose: 25 mg Documented by: Morphine Sulfate (Morphine Sulfate 4 Mg/Ml 1 Ml Carp\\Vial) 4 mg IV Q4H PRN PRN Reason: Pain Stop: 11/30/21 04:45 Multivitamins (Multivitamin Tab) 1 tab PO [facility] Stop: 12/16/21 08:59 Last Admin: 11/16/21 08:04 Dose: 1 tab Documented by: Rosuvastatin Calcium (Rosuvastatin Calcium 20 Mg Tab) 40 mg [facility] Stop: 12/16/21 08:59 Last Admin: 11/16/21 08:04 Dose: 40 mg Documented by: Tramadol HCl (Tramadol Hcl 50 Mg Tablet) 25 - 50 mg PO Q4H PRN PRN Reason: Pain Stop: 12/16/21 04:45
[2021-11-16] MEDS ORDERED: METOPROLOL SUCC 25MG EXT REL TAB PO SCH (09:00)
[2021-11-16] MEDS ORDERED: ENOXAPARIN INJ 40 MG/0.4 ML SYR SQ SCH (09:00)
[2021-11-16] MEDS ORDERED: ROSUVASTATIN CALCIUM 20 MG TAB PO SCH (09:00)
[2021-11-16] MEDS ORDERED: MULTIVITAMIN TAB PO SCH (09:00)
[2021-11-16] MEDS ORDERED: NITROGLYCERIN SL 0.4 MG/TAB TAB ONE (10:30)
--- NOTE | 2021-11-16 12:25 | Electrocardiogram Report ---
Test Reason : Blood Pressure : / mmHG Vent. Rate : 069 BPM Atrial Rate : 069 BPM P-R Int : 168 ms QRS Dur : 098 ms QT Int : 392 ms P-R-T Axes : 015 -07 015 degrees QTc Int : 420 ms Normal sinus rhythm Normal ECG When compared with ECG of 12-SEP-2019 14:35, No significant change was found Confirmed by Fabian Kimbrough ([id number]) on 11/16/2021 12:25:04 PM Referred By: REFERRED SELF Confirmed By:Fabian Kimbrough
--- NOTE | 2021-11-16 13:00 | Pulmonary Consultation ---
Date of Consultation November 16, 2021 Assessment & Plan (1) Pulmonary nodule: Impression: 56-year-old male with trivial remote tobacco exposure history but significant family history for malignancy presents for evaluation of atypical chest pain and was incidentally found to have a 13 mm pulmonary nodule. Recommendations: 1. Incidental pulmonary nodule: The patient will require a PET scan for additional evaluation. This can only be performed as an outpatient. I advised the patient that work-up for pulmonary nodules is typically restricted outpatient. I will order the outpatient PET scan and would be happy to see the patient back in clinic once the PET scan is been completed. Additional recommendations will be based on radiographic behavior of the nodule. The nodule in its current size is not amenable to bronchoscopic biopsy and is below the limit for CT-guided biopsy by our radiologist. In addition would not pursue biopsy at this point time until we have the PET scan results. 2. Advised the patient that this radiographic finding is not involved with his reason for admission. Additional work-up of his primary admitting symptom per primary service. From my standpoint, the patient does not need to remain in the hospital for any additional evaluation for this pulmonary nodule. When he is discharged, my office will try and coordinate an outpatient PET scan for him. I will then see him back after the scan is completed to arrange for additional follow-up. The above recommendations and plan were extensively discussed with the patient. Questions were answered to the best my ability. He expressed understanding and is in agreement with plan as outlined. History of Present Illness Attending Physician: London Navas MD History of Present Illness Asked by hospitalist to evaluate this patient with incidentally identified pulmonary nodule. History is obtained from discussion with the patient as well as review the electronic medical record. The patient is a 56-year-old male with a less than [id number] history of tobacco abuse who was admitted to the facility within the last 24 hours with atypical chest pain. As part of his work-up he had a CT angiogram performed to exclude thoracic dissection. This revealed a pulmonary nodule. Review of the patient's prior CT of the abdomen performed in 2019 revealed a questionable sma ll nodule in the same area as this nodule indicating potential interval growth. The patient is devoid of any respiratory complaints currently. He specifically denies any cough, sputum production, wheezing, or shortness of breath. No hemoptysis. He denies constitutional symptoms such as fevers chills or night sweats. His chest pain has resolved. 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 He does have a significant family history of malignancy. He states his brother due to lung cancer in his 60s. He also had a brother who due to brain cancer in his late 60s. Allergies Allergy/AdvReac Type Severity Reaction Status Date / Time Penicillins AdvReac Mild N/V Verified 11/16/21 00:51 Home Medications Medication Instructions Recorded Confirmed Type aspirin 81 mg chewable tablet 81 mg PO QAM 04/19/19 11/16/21 History fluticasone propionate 50 2 spray INTRANASAL QAM 04/19/19 11/16/21 History mcg/actuation nasal spray,suspension (Flonase Allergy Relief) metoprolol succinate 25 mg 25 mg PO QAM 04/19/19 11/16/21 History tablet,extended release 24 hr nitroglycerin 0.4 mg sublingual 0.4 mg SUBLINGUAL UD PRN 04/19/19 11/16/21 History tablet rosuvastatin 40 mg tablet (Crestor) 40 mg PO QAM 04/19/19 11/16/21 History ascorbic acid (vitamin C) 500 mg 500 mg PO QAM 11/16/21 11/16/21 History tablet (Vitamin C) multivitamin 1 tab PO QAM 11/16/21 11/16/21 History omega-3 fatty acids-fish oil 684 1 cap PO QAM 11/16/21 11/16/21 History mg-1,200 mg capsule,delayed release Patient History Medical History (Updated 11/16/21 @ 10:50 by Sulma Sheth PA-C) CAD (coronary artery disease) Surgical History History of cardiac cath 2014 History of cataract surgery LEFT History of heart artery stent failed stress test and found blockage -- stent x 1 2014 done [facility] and no longer cardiac doctor took plavix for one year and takes metoprolol and crestor Hx of appendectomy Hx of colonoscopy Hx of wisdom tooth extraction Social History Smoking Status: Never smoker Second Hand Exposure: No; Hx Alcohol Use: No Hx Substance Use: No Preferred Language: Cypriot Communication Ability: Effective Sweet Dough Mixer Required: No Beliefs That Will Affect Care: None Current Living Situation: Alone Other Information That Helps Us Care for You: No Feels Safe at Home: Yes Safety Concerns: Feels Safe At This Time Assistive Devices: Glasses Review of Systems Review of Systems: All systems reviewed & are unremarkable except as noted in Subjective Physical Exam Constitutional: WD/WN, vitals as above Neck: trachea midline, no thyromegaly Respiratory: normal respiratory effort, lungs clear to auscultation Cardiovascular: RRR, no murmur, no edema Gastrointestinal (Abdomen): normal bowel sounds, soft, nontender, no hepatosplenomegaly Musculoskeletal: Extremities: extremities normal to inspection Skin: no rashes, warm and dry Neurologic: Nonfocal exam Lymphatic: no cervical lymphadenopathy Results & Data Results & Data ([facility]) Vital Signs (Past 12 Hours) Vital Signs Temp Pulse Pulse Resp BP Pulse Ox 11/16/21 11:47 36.9 C 73 20 129/60 98 11/16/21 08:02 36.5 C 68 18 119/71 94 11/16/21 07:11 65 11/16/21 04:35 76 11/16/21 04:30 36.4 C L 72 18 118/75 93 11/16/21 04:00 62 19 120/83 99 11/16/21 01:57 68 20 128/79 97 Critical Care Results & Data Vital Signs (Past 12 Hours) Vital Signs Temp Pulse Pulse Resp BP Pulse Ox 11/16/21 11:47 36.9 C 73 20 129/60 98 11/16/21 08:02 36.5 C 68 18 119/71 94 11/16/21 07:11 65 11/16/21 04:35 76 11/16/21 04:30 36.4 C L 72 18 118/75 93 11/16/21 04:00 62 19 120/83 99 11/16/21 01:57 68 20 128/79 97 Lab & Micro Results (Past 24 Hours) RBC 5.19 M/uL (4.7-6.1) 11/16/21 WBC 15.05 K/uL (4.8-10.8) H 11/16/21 Hgb 15.8 g/dL (14.0-18.0) 11/16/21 Hct 46.2 % (42-52) 11/16/21 MCV 89.0 fL (80-100) 11/16/21 MCH 30.4 pg (25-34) 11/16/21 MCHC 34.2 g/dL (32-36) 11/16/21 RDW Standard Deviation 42.9 fL (36.4-46.3) 11/16/21 RDW Coefficient of Variation 13.1 % (11.5-14.5) 11/16/21 Plt Count 281 K/uL (130-400) 11/16/21 MPV 9.6 fL (7.4-10.4) 11/16/21 Neutrophils (%) (Auto) 72.3 % 11/16/21 Lymphocytes (%) (Auto) 10.9 % 11/16/21 Monocytes # (Auto) 2.01 K/uL (0.11-0.59) H 11/16/21 Eosinophils # (Auto) 0.46 K/uL (0-0.5) 11/16/21 Immature Granulocyte % (Auto) 0.1 % 11/16/21 Neutrophils # (Auto) 10.89 K/uL (1.4-6.5) H 11/16/21 Lymphocytes # (Auto) 1.64 K/uL (1.2-3.4) 11/16/21 Monocytes # (Auto) 2.01 K/uL (0.11-0.59) H 11/16/21 Eosinophils # (Auto) 0.46 K/uL (0-0.5) 11/16/21 Basophils # (Auto) 0.03 K/uL (0-0.2) 11/16/21 Immature Granulocyte # (Auto) 0.02 K/uL (0.00-0.02) 11/16/21 Na 138 mmol/L (136-145) 11/16/21 K 4.4 mmol/L (3.5-5.1) 11/16/21 Cl 103 mmol/L (98-107) 11/16/21 CO2 25 mmol/L (21-32) 11/16/21 Anion Gap 10 (3-11) 11/16/21 BUN 20 mg/dl (6-23) 11/16/21 Creatinine 0.99 mg/dl (0.6-1.4) 11/16/21 Estimated GFR ( Amer) 96.9 ml/min 11/16/21 Estimated GFR (Non-Af Amer) 83.6 ml/min 11/16/21 BUN/Creatinine Ratio 20.2 (10-20) H 11/16/21 Glu 128 mg/dl (70-99(Fasting)) H 11/16/21 Ca 9.3 mg/dl (8.5-10.1) 11/16/21 Total Bilirubin 0.9 mg/dl (0.2-1.0) 11/16/21 AST 24 U/L (13-39) 11/16/21 ALT 20 U/L (7-52) 11/16/21 Alkaline Phosphatase 62 U/L (34-104) 11/16/21 TP 7.3 gm/dl (6.0-8.3) 11/16/21 Albumin 4.3 gm/dl (3.4-5.0) 11/16/21 Globulin 3.0 gm/dl (2.5-4.0) 11/16/21 Albumin/Globulin Ratio 1.4 (0.9-2) 11/16/21 2 Mg 1.9 mg/dl (1.7-2.4) 11/16/21 00:48 11/16/21 Calcium Level 9.3 mg/dl (8.5-10.1) 11/16/21 00:48 11/16/21 Prothromb Time International Ratio 1.0 (0.9-1.1) 11/16/21 00:48 11/16/21 Diagnostic Findings (Past 24 Hours) Chest CTA 11/16/21 00:49 CT angio chest dissec wo/w con CLINICAL HISTORY: pain TECHNIQUE: Multidetector row helical CT of the chest was performed before and after injection of IV contrast. Coronal and sagittal reformations were obtained. Automated dose lowering techniques and/or adjustment according to patient size were utilized for this exam. Comparison: Comparison is made to CT thorax 01/26/2010 FINDINGS: Lungs and pleura: There is a 13 mm nodule in the left lower lobe (series 4 image 141). Heart and pericardium: Heart size is normal. No pericardial effusion. Vessels: No aortic dissection is seen. Moderate atherosclerotic calcification is seen. There is a trace of gas in the pulmonary trunk, likely secondary to venous injection. Mediastinum and gisele: Unremarkable. Chest wall and lower neck: Unremarkable. Abdomen: Cholelithiasis is seen without evidence of cholecystitis. Diverticulosis is seen without evidence of diverticulitis. Bones: Unremarkable. IMPRESSION: 1. No acute abnormality and in particular no evidence of acute aortic injury. 2. 13 mm nodule in the left lower lobe, which was not seen in 2010. In the 05/31/2019 CT abdomen pelvis, there is a 4 mm nodule at this site. This finding is suspicious for malignancy and PET/CT or tissue sampling can be performed on a nonemergent basis. ACT 112: Positive. There are findings on this exam that require communication between the performing entity and the patient following Patient Test Result Information Act ([place] Act 112) guidelines. Electronically signed by: Abisai John M.D. 11/16/2021 7:33 AM Chest X-Ray 11/16/21 00:51 XR chest 1V portable HISTORY: 56 years-old Male Chest pain . Acute atypical chest pain COMPARISON: CTA chest of same day TECHNIQUE: Portable AP view of the chest FINDINGS: The cardiac silhouette is enlarged. No pneumothorax, pleural effusion, airspace consolidation or overt pulmonary edema. The solid pulmonary nodule measuring over 1 cm within the left lower lobe seen on the CT chest study of same day is not well visualized by radiography. Bones appear grossly intact. Healed chronic bilateral rib fractures. IMPRESSION: Cardiomegaly without acute process. ACT 112: Negative or not required by law. The above report was generated using voice recognition software. It may contain grammatical, syntax or spelling errors. Electronically signed by: Tushar Martinez M.D. 11/16/2021 7:23 AM I & O Totals 24 Hours 11/15/21 11/16/21 11/17/21 06:59 06:59 06:59 Intake Total 1000 / 1000 Balance 1000 / 1000 Cumulative 11/16/21 00:34 thru 11/16/21 09:28 Intake Total 1000 Balance 1000 RT Ventilator Mngmt (Last Documented) Ventilator Ordered Settings Respiratory Rate 20 11/16/21 11:47 Ventilator - PT Measurements Respiratory Rate 20 PG Care Time/CCT Total # of Minutes Spent Total Time Spent with Patient: Total time spent is greater than 50% in coordination of care (as documented) at patient's floor/unit and/or counseling patient: Coding Level of Care Code 38655 Inpt Consult Level 4 Diagnoses Pulmonary nodule R91.1
[2021-11-16] MEDS ORDERED: ASPIRIN 81 MG ECTAB PO SCH (14:00)
--- NOTE | 2021-11-16 16:09 | Discharge Summary ---
Date of Service November 16, 2021 Admission HPI Per Admitting Provider History obtained from patient, family, and records. Medical history significant for CAD status post stent (2019), hypertension, hyperlipidemia, past tobacco abuse. Last confinement February 2017 under Cardiology service for unstable angina status post stent placement. Sequent stent placement with note of high-grade mid LAD stenosis on outpatient cardiac catheterization last August 2019. About 2 months ago, patient noted transient chest discomfort relieved by nitroglycerin while shoveling snow. Patient seen at [facility] Cardiology office outpatient 3 weeks ago. Cloth Examiner Machine recommended cardiac testing but patient reluctant due to insurance issues. Toprol dose increased. Patient instructed to go to ER if with recurrence of chest pain. 2 days ago, patient felt tired like he was going to get sick. No cough symptoms. Patient completed COVID-19 vaccination. Patient does not perea. No known recent tick bites. Last night upon arrival at home patient noted pleuritic chest discomfort with shortness of breath not relieved by nitroglycerin. Episode somewhat different from discomfort from a few months back. Patient consulted ER for evaluation. 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 Admission Exam Per Admitting Provider GENERAL: Slightly uncomfortable, pleasant, anxious, obese, no respiratory distress SKIN: Normal color, warm HEENT: [place] palpebral conjunctivae, no ptosis, dry buccal mucosa NECK : Supple, short neck, no tenderness CHEST : CTA, no tenderness HEART : RRR, no obvious murmurs ABDOMEN: Some distention, nontender EXTREMITIES : No LE swelling/tenderness, no other conspicuous deformities noted NEUROLOGIC : Coherent, no facial asymmetry, no other gross focality Principal Diagnosis Atypical chest pain rule out ACS Pulmonary nodule Discharge Exam GENERAL: Alert and oriented x3. NAD, on RA. HEENT: No pallor, no icterus. Pupils equal, round and reactive to light. Oral mucosa moist. NECK: No JVD, no neck masses. HEART: S1 and S2 heard. Regular rate and rhythm. No murmur, no gallop. RESPIRATORY SYSTEM: Normal AP diameter. No accessory muscle use. No wheezing, no crackles. ABDOMEN: Soft, bowel sounds present, nontender, no distention. CENTRAL NERVOUS SYSTEM: No facial droop. Speech is clear. Obeys simple commands. Moves extremities. EXTREMITIES: No edema, no erythema seen. Discharge Data Allergies Allergy/AdvReac Type Severity Reaction Status Date / Time Penicillins AdvReac Mild N/V Verified 11/16/21 00:51 Consultations 11/16/21 02:29 ED Decision to Admit Stat 11/16/21 04:46 Consult Cardiology Routine 11/16/21 11:47 Consult Pulmonology Routine Ordered Studies 11/16/21 00:49 CT angio chest dissec wo/w con Urgent Hospital Course (1) Pulmonary nodule: (2) Atypical chest pain: Patient seen and examined at bedside, for further detailed note on the patient refer to H&P on the same day of discharge. Patient was evaluated for chest pain, underwent echo and stress test, both were within normal limit. Troponin trend was negative, EKG w/ no acute ST-T changes. Cardiology evaluated the patient, is okay to go home from the point of view. No medication changes from cardiology's point of view at this point. Patient will need to follow-up with cardiology as an outpatient. Patient reports that his belly pain/lower chest pain improved after Maalox dose at 1 AM, hence discharging patient with pantoprazole twice daily, patient advised regarding GERD precautions. Can use tums OTC as needed. He reports his pain was not improved with 2 doses of morphine overnight. Patient was incidentally found to have LLL 1.3 cm lung nodule, pulmonology evaluated, will need outpatient pulmonology follow-up, discussed with patient in detail about the next CT to follow-up with this lesion with lung doctor as an outpatient, patient voiced understanding. Following instructions were communicated to the patient at the point of discharge: Follow-up with your PCP within a week time. Follow-up with your cardiology in November as Outpatient. You have been evaluated by cardiology while inpatient. For your chest pain, you underwent echocardiography and stress test, both were WNL. Maintain GERD precaution, small volume of meals at a time, last meal 4 hours prior to bedtime, keep head of the bed propped up, take pantoprazole twice a day upon discharge, follow-up with your PCP for further recommenda tions/evaluation/management on your GERD. Can take Tums OTC for breakthrough heartburn. As discussed at the bedside, you have been diagnosed with LLL 1.3 cm nodule, you will need to follow-up with pulmonology as an outpatient to follow-up on this nodule. You will likely need PET scan and possibly biopsy down the road. Take your medications as prescribed. Total Time Total Time Spent Total Time Spent (In Minutes): 45 Discharge Plan Discharge Items Patient Disposition: Home - Self-Care Reason For Visit: CHEST PAIN Discharge Diagnosis: Atypical chest pain rule out ACS Pulmonary nodule Activity: Resume your previous activity Non-emergency contact: Primary Care Provider Call non-emergency contact if: you have any medication questions and your pain is worsening Follow-up/Referrals: Valentin Johns MD [Primary Care Provider] - Diet: Heart Healthy Addtl Attending Provider Instructions: Follow-up with your PCP within a week time. Follow-up with your cardiology in November as Outpatient. You have been evaluated by cardiology while inpatient. For your chest pain, you underwent echocardiography and stress test, both were WNL. Maintain GERD precaution, small volume of meals at a time, last meal 4 hours prior to bedtime, keep head of the bed propped up, take pantoprazole twice a day upon discharge, follow-up with your PCP for further recommendations/evaluation/management on your GERD. Can take Tums OTC for breakthrough heartburn. As discussed at the bedside, you have been diagnosed with LLL 1.3 cm nodule, you will need to follow-up with pulmonology as an outpatient to follow-up on this nodule. You will likely need PET scan and possibly biopsy down the road. Take your medications as prescribed. Pending Studies at Discharge: No Stand-Alone Forms: My OpenROV, Smoking Cessation Medications and DC Order Prescriptions: New pantoprazole 40 mg tablet,delayed release (DR/EC) 40 mg PO BID Qty: 60 RF: 0 calcium carbonate [Tums] 300 mg (750 mg) tablet,chewable 300 mg PO TID PRN (Reason: dyspepsia) Qty: 90 RF: 0 Continued nitroglycerin 0.4 mg Tablet, Sublingual 0.4 mg sublingual UD PRN (Reason: Chest Pain) RF: 0 aspirin 81 mg Tablet,Chewable 81 mg PO QAM RF: 0 metoprolol succinate 25 mg Tablet Extended Release 24 Hr 25 mg PO QAM RF: 0 fluticasone propionate [Flonase Allergy Relief] 50 mcg/actuation [place],Suspension 2 spray INTRANASAL QAM RF: 0 rosuvastatin [Crestor] 40 mg Tablet 40 mg PO QAM RF: 0 multivitamin Tablet 1 tab PO QAM RF: 0 ascorbic acid (vitamin C) [Vitamin C] 500 mg Tablet 500 mg PO QAM RF: 0 [place] 3 Fish Oil 684-1,200 mg Capsule,Delayed Release(Dr/Ec) 1 cap PO QAM RF: 0 Discharge Orders: Discharge Order (Routine); Ordered 11/16/21 Ordered By: London Holley/Other Patient Handouts: Prediabetes, 5 Steps for Eating Healthier Admission Data Admit Date/Time: 11/16/21 03:21 Attending Provider: London Navas Admit Provider: Clarence Moraes Primary Care Provider: Valentin Johns Other Providers: Clarence Moraes ; Danilo Reyes ; Cory Chaudhari ; Paul Riley ; Omid Aj ; Woo Richardson ; Holland Davies ; Sulma Sheth ; Mariam York ; Senia Peace ; Rodney Santiago ; Roderick Mares
[2021-11-16] MEDS ORDERED: FLUTICASONE PROPIONATE NA SPR 16 GM BTL SCH (21:00)
== END 2021-11-16 17:00 | disposition home or self-care (01) ==
LOC: 2S 00:34 → ED 00:34 → 2S 04:16
DX: Z20.822 Contact with and (suspected) exposure to COVID-19; Z79.899 Other long term (current) drug therapy; R91.1 Solitary pulmonary nodule; Z88.0 Allergy status to penicillin; Z79.82 Long term (current) use of aspirin; I25.10 Atherosclerotic heart disease of native coronary artery without angina pectoris; R07.89 Other chest pain

== ENCOUNTER 2022-08-28 05:23 | Inpatient (IN) ==
[2022-08-28] MEDS ORDERED: MoRPHine SULFATE 10 MG/ML CARP/VIAL IV STA (05:46)
[2022-08-28] MEDS ORDERED: ONDANSETRON INJ 2 MG/ML 2 ML VIAL IV STA (05:46)
--- NOTE | 2022-08-28 05:53 | Emergency Department Note ---
History of Present Illness General Chief complaint: Abdominal Pain Stated complaint: ABD PAIN Time Seen by Provider: 08/28/22 05:33 Source: patient Mode of arrival: ambulatory Limitations: no limitations History of Present Illness Maximum Pain Intensity: 10 This patient is a 57-year-old male who presents to the emergency department for evaluation of vomiting and abdominal pain. Patient states that he woke up about 3 hours ago with epigastric pain and then began vomiting. He has had 6 episodes of vomiting this morning. He states that he ate chili for dinner last night, but no one else in his house is sick. He rates his current pain a 10/10. Patient has a history of left lower lobectomy for history of lung cancer. He is currently on immunotherapy for this. He also notes a history of cardiac disease with stents. He denies urinary symptoms, changes in bowel movements, fevers or chills. He tried some Pepto-Bismol at home without relief. Home Medications Medication Instructions Recorded Confirmed Type aspirin 81 mg chewable tablet 81 mg PO QAM 04/19/19 11/16/21 History fluticasone propionate 50 2 spray intranasal QA 04/19/19 11/16/21 History mcg/actuation nasal spray,suspension (Flonase Allergy Relief) metoprolol succinate 25 mg 25 mg PO QAM 04/19/19 11/16/21 History tablet,extended release 24 hr nitroglycerin 0.4 mg sublingual 0.4 mg sublingual UD PRN Chest Pain 04/19/19 11/16/21 History tablet rosuvastatin 40 mg tablet (Crestor) 40 mg PO QAM 04/19/19 11/16/21 History ascorbic acid (vitamin C) 500 mg 500 mg PO QAM 11/16/21 11/16/21 History tablet (Vitamin C) calcium carbonate 300 mg (750 mg) 300 mg PO TID PRN dyspepsia #90 11/16/21 Rx chewable tablet (Tums) tabs multivitamin 1 tab PO QAM 11/16/21 11/16/21 History omega-3 fatty acids-fish oil 684 1 cap PO QAM 11/16/21 11/16/21 History mg-1,200 mg capsule,delayed release pantoprazole 40 mg tablet,delayed 40 mg PO BID #60 tabs 11/16/21 Rx release tramadol 50 mg tablet 50 mg PO Q6H PRN pain #20 tabs 07/15/22 Rx Allergies Allergy/AdvReac Type Severity Reaction Status Date / Time Penicillins AdvReac Mild N/V Verified 11/16/21 00:51 Past Med/Surg History Medical History (Updated 08/28/22 @ 06:49 by Celia Holm PA-C) CAD (coronary artery disease) Lung cancer Surgical History (Updated 08/28/22 @ 05:52 by Celia Holm PA-C) History of cardiac cath 2013 History of cataract surgery LEFT History of heart artery stent failed stress test and found blockage -- stent x 1 2014 done [facility] and no longer cardiac doctor took plavix for one year and takes metoprolol and crestor Hx of appendectomy Hx of colonoscopy Hx of wisdom tooth extraction S/P lobectomy of lung Social History Smoking Status: Never smoker Tobacco Type: Cigarettes Second Hand Exposure: No; Hx Alcohol Use: No Hx Substance Use: No Preferred Language: Mexican Communication Ability: Effective Server Service Assistant Required: No Beliefs That Will Affect Care: None Current Living Situation: Alone Feels Safe at Home: Yes Assistive Devices: None Review of Systems A total of 10 systems reviewed and were otherwise negative Physical Exam Vital Signs Vital Signs - 24 hr 08/28/22 05:29 08/28/22 06:46 Temperature 36.5 C Temperature Source Temporal Artery Scan Pulse Rate 76 Pulse Rate [Finger] 79 Pulse Rhythm [Finger] Regular Respiratory Rate 20 24 Respiratory Effort / Characteristics Non-Labored Spontaneous Non-Labored Spontaneous Respiratory Depth Normal Normal Blood Pressure 159/107 H Blood Pressure [Left Arm] 124/78 Blood Pressure Mean 124 Blood Pressure Mean [Left Arm] 93 Blood Pressure Position [Left Arm] Lying Pulse Oximetry 99 98 Oxygen Delivery Method Room Air Room Air Sepsis New/Unexplained Change in Mental Status N/A Sepsis Action Taken by Nursing No Action Required VITALS: Vitals are noted on the nurse's note and reviewed by myself. GENERAL: This is a 57-year-old male, uncomfortable appearing, well-developed well-nourished. SKIN: The skin was without rashes. EYES: Pupils equal round and reactive to light and accommodation. No scleral icterus. MOUTH: Mucous membranes moist. NECK: Supple without nuchal rigidity. No lymphadenopathy. HEART: Regular rate and rhythm without murmurs gallops or rubs. LUNGS: Clear to auscultation bilaterally without wheezes, rales or rhonchi. ABDOMEN: Positive bowel sounds x 4. Soft, tenderness to palpation in the epigastric region. No guarding or rebound tenderness. NEURO: Patient was alert and oriented to person place and time. Course Administered Medications Discontinued Medications Al Hydrox/Mg Hydrox/Simethicone (Gi Cocktail Ed Use) 1 dose PO ONE ONE Stop: 08/28/22 06:23 Last Admin: 08/28/22 06:28 Dose: 1 dose Documented By: THAI Hydromorphone HCl (Hydromorphone Inj 1 Mg/Ml Syringe) 1 mg IV NOW STA Stop: 08/28/22 06:43 Last Admin: 08/28/22 06:44 Dose: 1 mg Documented By: THAI Famotidine (Pepcid 20mg Iv Push) 20 mg in 5 mls @ 2.5 mls/min IV NOW STA Stop: 08/28/22 06:23 Last Admin: 08/28/22 06:29 Dose: 2.5 mls/min Documented By: THAI Morphine Sulfate (Morphine Sulfate 10 Mg/Ml Carp/Vial) 6 mg IV NOW STA Stop: 08/28/22 05:47 Last Admin: 08/28/22 05:55 Dose: 6 mg Documented By: THAI Ondansetron HCl (Ondansetron Inj 2 Mg/Ml 2 Ml Vial) 4 mg IV NOW STA Stop: 08/28/22 05:47 Last Admin: 08/28/22 05:55 Dose: 4 mg Documented By: THAI Medical Decision Making Differential Diagnosis Appendicitis, testicular torsion, infections, diverticulitis, UTI, obstruction, mesenteric ischemia, aortic pathology, inflammatory bowel disease, renal colic, PUD, pancreatitis, biliary pathology, hernia, volvulus, constipation, as well as other pathologies. Home Medications Current Medication List: was personally reviewed by me Laboratory Data Attestation: I reviewed the patient's lab results. 08/28/22 05:45 08/28/22 05:45 Lab Results 08/28/22 08/28/22 Range/Units 05:45 05:45 WBC 8.61 (4.8-10.8) K/ul RBC 4.28 L (4.63-6.08) M/uL Hgb 13.7 L (14.0-18.0) g/dl Hct 40.1 (40.1-51.0) % MCV 93.7 (80.0-100.0) fL MCH 32.0 (25.0-34.0) pg MCHC 34.2 (32.0-36.0) g/dL RDW Std Deviation 39.3 (36.4-46.3) fL RDW Coeff of Rebeca 11.5 (11.5-14.5) % Plt Count 291 (130-400) K/uL MPV 9.1 L (9.4-12.4) fL Immature Gran % (Auto) 0.3 % Neut % (Auto) 59.8 % Lymph % (Auto) 23.6 % [place] % (Auto) 12.2 % Eos % (Auto) 3.4 % Baso % (Auto) 0.7 % Neut # (Auto) 5.15 (1.4-6.5) K/uL Lymph # (Auto) 2.03 (1.2-3.4) K/uL [place] # (Auto) 1.05 H (0.24-0.82) K/uL Eos # (Auto) 0.29 (0-0.50) K/uL Baso # (Auto) 0.06 (0-0.2) K/uL Immature Gran # (Auto) 0.03 H (0.00-0.02) K/uL Sodium 139 (136-145) mmol/L Potassium 4.3 (3.5-5.1) mmol/L Chloride 102 (98-107) mmol/L Carbon Dioxide 30 (21-32) mmol/L Anion Gap 7 (3-11) BUN 23 (6-23) mg/dl Creatinine 1.13 (0.6-1.4) mg/dl Est Cr Clr Drug Dosing 71.9 ml/min Est GFR ( Amer) 82.0 ml/min Est GFR (Non-Af Amer) 70.8 ml/min BUN/Creatinine Ratio 20.4 H (10-20) Glucose 126 H (70-99(Fasting)) mg/dl Calcium 8.8 (8.5-10.1) mg/dl Total Bilirubin 0.3 (0.2-1.0) mg/dl AST 38 (13-39) U/L ALT 47 (7-52) U/L Alkaline Phosphatase 84 (34-104) U/L Troponin I High Sens 4.8 (0-20) pg/ml Total Protein 7.6 (6.0-8.3) gm/dl Albumin 4.2 (3.4-5.0) gm/dl Globulin 3.4 (2.5-4.0) gm/dl Albumin/Globulin Ratio 1.2 (0.9-2) Lipase 41 (11-82) U/L MDM Narrative Continuous potline monitor: Order was placed for continuous potline monitor. Patient was placed on the potline monitor. Patient was noted to be in normal sinus rhythm at an initial rate of 72 bpm. The patient is a 57-year-old male who presents today complaining of epigastric abdominal pain and vomiting. Labs revealed no leukocytosis, anemia or concerning electrolyte abnormalities. LFTs within normal limits. Lipase is not elevated. Patient initially treated with morphine and Zofran without much improvement. He was then given Pepcid and GI cocktail and reported no improvement with this. Patient was then given a dose of Dilaudid for pain. At change of shift, patient had just completed his CT scan, radiology read pending. Care of the patient was signed out to Kiet Uribe PA-C at this time awaiting CT results. Please see his note for patient disposition. Impression & Plan Epigastric abdominal pain, Vomiting Discharge Plan Visit Data Chief Complaint: Abdominal Pain Stated Complaint: ABD PAIN ED Provider: Muna Love ED Midlevel Provider: Celia Holm Discharge Problem: Epigastric abdominal pain, Vomiting Forms Stand Alone Forms: [facility] Prescriptions Prescriptions: No Action nitroglycerin 0.4 mg Tablet, Sublingual 0.4 mg sublingual UD PRN (Reason: Chest Pain) aspirin 81 mg Tablet,Chewable 81 mg PO QAM metoprolol succinate 25 mg Tablet Extended Release 24 Hr 25 mg PO QAM fluticasone propionate [Flonase Allergy Relief] 50 mcg/actuation [place],Suspension 2 spray INTRANASAL QAM rosuvastatin [Crestor] 40 mg Tablet 40 mg PO QAM multivitamin Tablet 1 tab PO QAM ascorbic acid (vitamin C) [Vitamin C] 500 mg Tablet 500 mg PO QAM omega-3 fatty acids-fish oil 684-1,200 mg Capsule,Delayed Release(Dr/Ec) 1 cap PO QAM pantoprazole 40 mg tablet,delayed release (DR/EC) 40 mg PO BID Qty: 60 0RF calcium carbonate [Tums] 300 mg (750 mg) tablet,chewable 300 mg PO TID PRN (Reason: dyspepsia) Qty: 90 0RF tramadol 50 mg tablet 50 mg PO Q6H PRN (Reason: pain) Qty: 20 0RF Referrals Referrals: Valentin Johns MD [Primary Care Provider] - : Vomiting Qualifiers: Vomiting type: unspecified Nausea presence: with nausea Qualified Code(s): R11.2 - Nausea with vomiting, unspecified
[2022-08-28 06:10] LABS: Basophils # (auto) 0.06 K/uL (0-0.2); Basophils % (auto) 0.7 %; Eosinophils # (auto) 0.29 K/uL (0-0.50); Eosinophils % (auto) 3.4 %; Hematocrit (blood only) 40.1 % (40.1-51.0); Hemoglobin 13.7 g/dl (14.0-18.0); Immature Granulocytes # (auto) 0.03 K/uL (0.00-0.02); Immature Granulocytes % (auto) 0.3 %; Lymphocytes # (auto) 2.03 K/uL (1.2-3.4); Lymphocytes % (auto) 23.6 %; Mean Corpuscular Hgb Conc 34.2 g/dL (32.0-36.0); Mean Corpuscular Volume 93.7 fL (80.0-100.0); Mean Platelet Volume 9.1 fL (9.4-12.4); Monocytes # (auto) 1.05 K/uL (0.24-0.82); Monocytes % (auto) 12.2 %; Neutrophils # (auto) 5.15 K/uL (1.4-6.5); Neutrophils % (auto) 59.8 %; Platelet Count 291 K/uL (130-400); RDW Coefficient of Variation 11.5 % (11.5-14.5); RDW Standard Deviation 39.3 fL (36.4-46.3); Red Blood Count 4.28 M/uL (4.63-6.08); White Blood Count 8.61 K/ul (4.8-10.8)
[2022-08-28] MEDS ORDERED: FAMOTIDINE 20MG IV PUSH 20 MG/5 ML SYR IV STA (06:22)
[2022-08-28] MEDS ORDERED: GI COCKTAIL ED USE PO ONE (06:22)
[2022-08-28 06:29] LABS: Albumin Globulin Ratio 1.2 (0.9-2); Albumin Level 4.2 gm/dl (3.4-5.0); BUN Creatinine Ratio 20.4 (10-20); Bilirubin,Total 0.3 mg/dl (0.2-1.0); Calcium 8.8 mg/dl (8.5-10.1); Creatinine Clr Calc Pharmacy 71.9 ml/min; Est GFR (Non-African American) 70.8 ml/min; Globulin 3.4 gm/dl (2.5-4.0); Potassium 4.3 mmol/L (3.5-5.1); Total Protein 7.6 gm/dl (6.0-8.3); Troponin I High Sensitivity 4.8 pg/ml (0-20)
[2022-08-28] MEDS ORDERED: HYDROmorphone INJ 1 MG/ML SYRINGE IV STA (06:42)
[2022-08-28] MEDS ORDERED: OPTIRAY 350 100ml IV ONE (07:03)
--- NOTE | 2022-08-28 07:23 | CT Scan Report ---
ABDOMEN AND PELVIS CT WITH IV CONTRAST CT DOSE: 607.44 mGy.cm HISTORY: epigastric pain, vomiting TECHNIQUE: Multiaxial CT images of the abdomen and pelvis were performed following the use of intrave nous contrast. A dose lowering technique was utilized adhering to the principles of ALARA. COMPARISON STUDY: Abdomen and pelvis CT 05/31/2019. FINDINGS: Mild dependent changes seen at the lung bases. No pneumoperitoneum. No pneumatosis. Old pos ttraumatic and postoperative changes seen within the proximal left femur. There is a 5 mm gallstone i dentified. Questionable minimal inflammatory change surrounding the gallbladder. The gallbladder is m ildly distended. Normal caliber common bile duct. The liver, adrenal glands, and pancreas are unremar kable. Small bilateral peripelvic renal cysts are noted. No hydronephrosis. No retroperitoneal lympha denopathy. Tiny fat-containing umbilical hernia. The bladder is mildly distended. No pelvic free flui d or pelvic lymphadenopathy. Colonic diverticulosis. No evidence for acute diverticulitis. No bowel w all thickening or obstruction. The appendix is surgically absent. IMPRESSION: 1. The gallbladder is mildly distended and there is minimal surrounding inflammatory change. There is also a 5 mm stone at the gallbladder neck. Therefore, this may represent an early acute cholecystiti s. Surgical consultation recommended. 2. No bowel wall thickening or obstruction. 3. Colonic diverticulosis. No evidence for acute diverticulitis. ACT 112: Negative or not required by law. Electronically signed by: Wagner Treviño M.D. 08/28/2022 7:21 AM
--- NOTE | 2022-08-28 07:24 | Emergency Department Note ---
ED Visit Note Patient signed out to me by Celia Holm PA-C at time of shift change pending CT of the abdomen and pelvis secondary to epigastric pain and vomiting that began earlier this morning. History of lung cancer and left lower lobectomy, currently on immunotherapy, also history of cardiac disease with stents. Patient received morphine, Dilaudid for pain, GI cocktail and Zofran for nausea. Labs show no leukocytosis. Minimal anemia with hemoglobin of 13.7. No electrolyte disturbance. No transaminitis, bilirubin is stable. Most recent vitals are stable. CT of the abdomen pelvis demonstrated a 5 mm stone in the gallbladder neck with mild distention, inflammatory changes concerning for early acute cholecystitis. Case discussed with Dr. Freeman (general surgery). He requests the hospitalist admit him for medical clearance for surgery, Mefoxin for antibiotics, and he will likely operate tomorrow on the patient. Spoke with Dr. Valdez (hospitalist) regarding the case who agrees to admit the patient for further management. Patient rested comfortably and remained hemodynamically stable. .
[2022-08-28] MEDS ORDERED: cefOXitin 2,000 MG/60 ML BAG IV STA (07:58)
--- NOTE | 2022-08-28 08:06 | XRay Report ---
XR chest 1V portable HISTORY: Atypical chest pain COMPARISON: Chest 07/15/2022. FINDINGS: No pneumothorax. No pleural effusions. The cardiac silhouette remains mildly enlarged. Ther e are old, healed bilateral rib fractures again noted. No new focal lung consolidations to suggest a pneumonia. No evidence for pulmonary edema. A right jugular Port-A-Cath terminates in the SVC. IMPRESSION: No significant change compared to the prior study. No acute process. ACT 112: Negative or not required by law. Electronically signed by: Wagner Treviño M.D. 08/28/2022 8:05 AM
--- NOTE | 2022-08-28 10:21 | Anesthesiology Consultation ---
Date of Service August 28, 2022 Assessment & Plan (1) Encounter for pre-operative examination: Chart Review Chart Review: entry processor initiated History Height/Weight Height: 5 ft 5 in Weight: 88.4 kg Allergies Allergy/AdvReac Type Severity Reaction Status Date / Time Penicillins AdvReac Mild N/V Verified 11/16/21 00:51 Medications Home Medications Medication Instructions Recorded Confirmed Last Taken aspirin 81 mg chewable tablet 81 mg PO QAM 04/19/19 11/16/21 11/15/21 fluticasone propionate 50 2 spray intranasal QAM 04/19/19 11/16/21 11/15/21 mcg/actuation nasal spray,suspension (Flonase Allergy Relief) metoprolol succinate 25 mg 25 mg PO QAM 04/19/19 11/16/21 11/15/21 tablet,extended release 24 hr nitroglycerin 0.4 mg sublingual 0.4 mg sublingual UD PRN Chest Pain 04/19/19 11/16/21 11/16/21 tablet rosuvastatin 40 mg tablet (Crestor) 40 mg PO QAM 04/19/19 11/16/21 11/15/21 ascorbic acid (vitamin C) 500 mg 500 mg PO QAM 11/16/21 11/16/21 11/15/21 tablet (Vitamin C) calcium carbonate 300 mg (750 mg) 300 mg PO TID PRN dyspepsia #90 11/16/21 Unknown chewable tablet (Tums) tabs multivitamin 1 tab PO QAM 11/16/21 11/16/21 11/15/21 omega-3 fatty acids-fish oil 684 1 cap PO QAM 11/16/21 11/16/21 11/15/21 mg-1,200 mg capsule,delayed release pantoprazole 40 mg tablet,delayed 40 mg PO BID #60 tabs 11/16/21 Unknown release tramadol 50 mg tablet 50 mg PO Q6H PRN pain #20 tabs 07/15/22 Unknown Past Medical History Medical History CAD (coronary artery disease) Lung cancer Past Surgical History Surgical History History of cardiac cath 2013 History of cataract surgery LEFT History of heart artery stent failed stress test and found blockage -- stent x 1 2013 done [facility] and no longer cardiac doctor took plavix for one year and takes metoprolol and crestor Hx of appendectomy Hx of colonoscopy Hx of wisdom tooth extraction S/P lobectomy of lung Social History Smoking Status: Never smoker Hx Alcohol Use: No Hx Substance Use: No substance use type: does not use Physical Exam Vital Signs Last Vital Signs Temp 97.7 F 08/28/22 05:29 Pulse 65 08/28/22 07:48 Resp 16 08/28/22 07:48 BP 130/93 08/28/22 07:48 Pulse Ox 99 08/28/22 07:48 O2 Del Method 08/28/22 07:48 Testing Laboratory Results 08/28/22 05:45 08/28/22 05:45 Electrocardiogram Date: 08/28/22 Sinus bradycardia, rate 52 bpm Otherwise normal ECG When compared with ECG of 15-JUL-2022 11:48, No significant change was found Chest X-Ray Date: 08/28/22 IMPRESSION: No significant change compared to the prior study. No acute process. Echocardiogram Date: 11/16/21 EF 55-60% LV wall motion is normal Grade 1 diastolic dysfunction No significant valvular pathology Cardiac Catheterization Date: 09/12/19 Summary: 1. Successful PCI of mid LAD with single drug-eluting stent overlapping distal aspect of prior stent (2.5 x 15 mm Lloyd resolute). 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
--- NOTE | 2022-08-28 11:06 | Surgery Consultation ---
Date of Consultation August 28, 2022 Assessment & Plan (1) Acute cholecystitis: IVF and IV abx NPO medical workup for cardiac dz clearance as far as immunotherapy regimen, consider oncology consult possible lap sammy tomorrow if cleared medically Present on Admission?: Yes History of Present Illness Attending Physician: Jake Valdez MD History of Present Illness This is a 57YO male who presented to the ED with vomiting and abdominal pain. It began last night, pain first then began vomiting. He ate chili for dinner last night, but no one else in his house is sick. Patient has a history of left lower lobectomy for history of lung cancer and currently on immunotherapy. He also notes a history of cardiac disease with stents. He denies urinary symptoms, changes in bowel movements, fevers or chills. A CT scan shows early acute cholecystitis. Allergies Allergy/AdvReac Type Severity Reaction Status Date / Time Penicillins AdvReac Mild N/V Verified 11/16/21 00:51 Home Medications Medication Instructions Recorded Confirmed Type aspirin 81 mg chewable tablet 81 mg PO QAM 04/19/19 11/16/21 History fluticasone propionate 50 2 spray intranasal QAM 04/19/19 11/16/21 History mcg/actuation nasal spray,suspension (Flonase Allergy Relief) metoprolol succinate 25 mg 25 mg PO QAM 04/19/19 11/16/21 History tablet,extended release 24 hr nitroglycerin 0.4 mg sublingual 0.4 mg sublingual UD PRN Chest Pain 04/19/19 11/16/21 History tablet rosuvastatin 40 mg tablet (Crestor) 40 mg PO QAM 04/19/19 11/16/21 History ascorbic acid (vitamin C) 500 mg 500 mg PO QAM 11/16/21 11/16/21 History tablet (Vitamin C) calcium carbonate 300 mg (750 mg) 300 mg PO TID PRN dyspepsia #90 11/16/21 Rx chewable tablet (Tums) tabs multivitamin 1 tab PO QAM 11/16/21 11/16/21 History omega-3 fatty acids-fish oil 684 1 cap PO QAM 11/16/21 11/16/21 History mg-1,200 mg capsule,delayed release pantoprazole 40 mg tablet,delayed 40 mg PO BID #60 tabs 11/16/21 Rx release tramadol 50 mg tablet 50 mg PO Q6H PRN pain #20 tabs 07/15/22 Rx Patient History Medical History CAD (coronary artery disease) Lung cancer Surgical History History of cardiac cath 2013 History of cataract surgery LEFT History of heart artery stent failed stress test and found blockage -- stent x 1 2014 done [facility] and no longer cardiac doctor took plavix for one year and takes metoprolol and crestor Hx of appendectomy Hx of colonoscopy Hx of wisdom tooth extraction S/P lobectomy of lung Social History Smoking Status: Never smoker Tobacco Type: Cigarettes Second Hand Exposure: No; Hx Alcohol Use: No Hx Substance Use: No Preferred Language: Venezuelan Communication Ability: Effective Hemodialysis Lab Technician Required: No Beliefs That Will Affect Care: None Current Living Situation: Alone Feels Safe at Home: Yes Assistive Devices: None Review of Systems Constitutional: + anorexia; no fever and no chills Eyes: no problem reported Ear, Nose, Mouth, Throat: no problem reported Respiratory: no cough and no dyspnea Cardiovascular: no chest pain Gastrointestinal: + abdominal pain, + nausea and + vomiting; no change in bowel habits Genitourinary: no dysuria Musculoskeletal: + back pain; no neck pain Integumentary: no rash and no lesions Neurologic: no localized weakness and no generalized weakness Psychiatric: no behavioral changes Endocrine: no fatigue Hematologic / Lymphatic: no easy bleeding and no easy bruising Physical Exam Constitutional: WD/WN, vitals as above Eyes: PERRL, conjunctivae normal, anicteric sclerae ENMT: external ear and nose normal, oropharynx normal Neck: trachea midline Respiratory: normal respiratory effort, lungs clear to auscultation Cardiovascular: RRR, no murmur, no edema Gastrointestinal (Abdomen): Inspection/Auscultation: abdomen normal to inspection, + abdomen distended, normal bowel sounds and + visible herniation (small umbilical) Percussion/Palpation: + abdomen tender and abdomen soft; no guarding and abdomen not rigid Musculoskeletal: Head/Neck/Chest: normocephalic and head atraumatic Skin: no rashes, warm and dry Psychiatric: Orientation: alert and oriented x 3 Results & Data ([facility]) Vital Signs (Past 12 Hours) Vital Signs Temp Pulse Pulse Resp BP BP Pulse Ox 08/28/22 07:48 65 16 130/93 99 08/28/22 06:46 79 24 124/78 98 08/28/22 05:29 36.5 C 76 20 159/107 H 99 O2 Del Method 08/28/22 07:48 Room Air 08/28/22 06:46 Room Air 08/28/22 05:29 Room Air Diagnostic Findings ABDOMEN AND PELVIS CT WITH IV CONTRAST CT DOSE: 607.44 mGy.cm HISTORY: epigastric pain, vomiting TECHNIQUE: Multiaxial CT images of the abdomen and pelvis were performed following the use of intravenous contrast. A dose lowering technique was utilized adhering to the principles of ALARA. COMPARISON STUDY: Abdomen and pelvis CT 05/31/2019. FINDINGS: Mild dependent changes seen at the lung bases. No pneumoperitoneum. No pneumatosis. Old posttraumatic and postoperative changes seen within the proximal left femur. There is a 5 mm gallstone identified. Questionable minimal inflammatory change surrounding the gallbladder. The gallbladder is mildly distended. Normal caliber common bile duct. The liver, adrenal glands, and pancreas are unremarkable. Small bilateral peripelvic renal cysts are noted. No hydronephrosis. No retroperitoneal lymphadenopathy. Tiny fat-containing umbilical hernia. The bladder is mildly distended. No pelvic free fluid or pelvic lymphadenopathy. Colonic diverticulosis. No evidence for acute diverticulitis. No bowel wall thickening or obstruction. The appendix is surgically absent. IMPRESSION: 1. The gallbladder is mildly distended and there is minimal surrounding inflammatory change. There is also a 5 mm stone at the gallbladder neck. Therefore, this may represent an early acute cholecystitis. Surgical consultation recommended. 2. No bowel wall thickening or obstruction. 3. Colonic diverticulosis. No evidence for acute diverticulitis.
[2022-08-28] MEDS ORDERED: ACETAMINOPHEN 325 MG TAB PO PRN (11:10)
[2022-08-28] MEDS ORDERED: NITROGLYCERIN SL 0.4 MG/TAB TAB SL PRN (11:10)
[2022-08-28] MEDS: metroNIDAZOLE 500 MG/100 ML BAG IV SCH ×2 (11:48→19:41)
--- NOTE | 2022-08-28 11:49 | History & Physical Report ---
Date of Service August 28, 2022 Assessment & Plan (1) Acute cholecystitis: Plan: Patient presented with severe epigastric pain associate with nausea and vomiting. CT abdomen and pelvis showed signs of acute cholecystitis with gallstone in neck of the gallbladder. No leukocytosis BUN/creatinine within normal limits. Liver enzymes within normal limits. EKG shows sinus bradycardia; no ST or T wave changes. Risk stratification; patient has history of unstable angina with LAD stents in the past. Currently, he is independent of ADLs and is able greater than 4 METS. No presenting chest pain or shortness of breath. EKG shows sinus bradycardia with no ST or T wave changes; no pathological Q waves. RCRI -1 (due to elevated risk surgery). Class II risk with 6% 30-day risk of , [place] or cardiac arrest. Will obtain cardiology's opinion if patient will require any other preoperative test prior to surgery. Discussed with on-call oncologist regarding safety of the surgery as patient is currently on immunotherapy. CBC, LFT stable. Plan for surgery tomorrow N.p.o. from midnight analgesics Chronic conditions; CADstress echo done in October 2021 which was negative for any inducible ischemia. EF of 55 to 60%. Currently on aspirin and metoprolol. Non-small cell lung cancer status post left lower lobe lobectomy and mediastinal node dissection on January 2022, received adjuvant treatment with Alimta, cisplatin X4 cycles; currently on immunotherapy( Atezolizumab) Full code DVT prophylaxis SCDs. Admission and Anticipated Discharge Date Admission Date: August 28, 2022 History of Present Illness Chief Complaint: Abdominal pain for 1 day Nausea vomiting for 1 day Primary Care Provider: Valentin Johns MD History obtained from chart review and interview with the patient. Past medical history of nonsmall cell lung cancer status post left lower lobe lobectomy and mediastinal node dissection on January 2022, received adjuvant treatment with Alimta, cisplatin X4 cycles; currently on immunotherapy( Atezol izumab), history of CAD with 2 stents in LAD most recent in August 2019. Patient presented with sudden onset of epigastric pain which woke him out of from sleep at night at 2 AM. The pain was continuous, radiating to right upper quadrant region and was associated with nausea and vomiting. The vomitus contained food particles; no blood. He denies any diarrhea. No chest pain, shortness of breath or palpitation. 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 He follows up with cardiology; he had stress echo done in October 2021 which was negative for any inducible ischemia. EF of 55 to 60%. He is currently receiving immunotherapy for non-small cell cancer. On presentation to the ED, patient was afebrile, normotensive and saturating we ll in room air. CT abdomen and pelvis was done which showed mildly distended gallbladder and minimal surrounding inflammatory change with 5 mm stone in gallbladder neck suggestive of acute cholecystitis. Patient was given IV fluids, analgesics and surgery was consulted. Patient is to undergo possible laparoscopic cholecystectomy tomorrow a.m. Allergies Allergy/AdvReac Type Severity Reaction Status Date / Time Penicillins AdvReac Mild N/V Verified 11/16/21 00:51 Home Medications Medication Instructions Recorded Confirmed Type Flonase 08/28/22 History aspirin 81 mg chewable tablet 81 mg PO 08/28/22 History lidocaine-prilocaine 2.5 %-2.5 % 08/28/22 08/28/22 History topical cream metoprolol succinate 25 mg 25 mg PO DAILY 08/28/22 08/28/22 History tablet,extended release 24 hr rosuvastatin 40 mg tablet 40 mg PO DAILY 08/28/22 08/28/22 History Past Med/Surg History Medical History CAD (coronary artery disease) Lung cancer Surgical History History of cardiac cath 2013 History of cataract surgery LEFT History of heart artery stent failed stress test and found blockage -- stent x 1 2013 done [facility] and no longer cardiac doctor took plavix for one year and takes metoprolol and crestor Hx of appendectomy Hx of colonoscopy Hx of wisdom tooth extraction S/P lobectomy of lung Social History Smoking Status: Never smoker Tobacco Type: Cigarettes Second Hand Exposure: No; Hx Alcohol Use: No Hx Substance Use: No Preferred Language: Bhutanese Communication Ability: Effective Assistant Sales Director Required: No Beliefs That Will Affect Care: None Current Living Situation: Alone Feels Safe at Home: Yes Assistive Devices: None Review of Systems Review of Systems: All systems reviewed & are unremarkable except as noted in Subjective Results & Data Results & Data ([facility]) Vital Signs (Past 12 Hours) Vital Signs Temp Pulse Pulse Resp BP BP Pulse Ox 08/28/22 07:48 65 16 130/93 99 08/28/22 06:46 79 24 124/78 98 08/28/22 05:29 36.5 C 76 20 159/107 H 99 O2 Del Method 08/28/22 07:48 Room Air 08/28/22 06:46 Room Air 08/28/22 05:29 Room Air Laboratory Results Laboratory Results WBC 8.61 K/ul (4.8-10.8) 08/28/22 05:45 RBC 4.28 M/uL (4.63-6.08) L 08/28/22 05:45 Hgb 13.7 g/dl (14.0-18.0) L 08/28/22 05:45 Hct 40.1 % (40.1-51.0) 08/28/22 05:45 MCV 93.7 fL (80.0-100.0) 08/28/22 05:45 MCH 32.0 pg (25.0-34.0) 08/28/22 05:45 MCHC 34.2 g/dL (32.0-36.0) 08/28/22 05:45 RDW Std Deviation 39.3 fL (36.4-46.3) 08/28/22 05:45 RDW Coeff of Rebcea 11.5 % (11.5-14.5) 08/28/22 05:45 Plt Count 291 K/uL (130-400) 08/28/22 05:45 MPV 9.1 fL (9.4-12.4) L 08/28/22 05:45 Immature Gran % (Auto) 0.3 % 08/28/22 05:45 Neut % (Auto) 59.8 % 08/28/22 05:45 Lymph % (Auto) 23.6 % 08/28/22 05:45 [place] % (Auto) 12.2 % 08/28/22 05:45 Eos % (Auto) 3.4 % 08/28/22 05:45 Baso % (Auto) 0.7 % 08/28/22 05:45 Neut # (Auto) 5.15 K/uL (1.4-6.5) 08/28/22 05:45 Lymph # (Auto) 2.03 K/uL (1.2-3.4) 08/28/22 05:45 [place] # (Auto) 1.05 K/uL (0.24-0.82) H 08/28/22 05:45 Eos # (Auto) 0.29 K/uL (0-0.50) 08/28/22 05:45 Baso # (Auto) 0.06 K/uL (0-0.2) 08/28/22 05:45 Immature Gran # (Auto) 0.03 K/uL (0.00-0.02) H 08/28/22 05:45 Sodium 139 mmol/L (136-145) 08/28/22 05:45 Potassium 4.3 mmol/L (3.5-5.1) 08/28/22 05:45 Chloride 102 mmol/L (98-107) 08/28/22 05:45 Carbon Dioxide 30 mmol/L (21-32) 08/28/22 05:45 Anion Gap 7 (3-11) 08/28/22 05:45 BUN 23 mg/dl (6-23) 08/28/22 05:45 Creatinine 1.13 mg/dl (0.6-1.4) 08/28/22 05:45 Est Cr Clr Drug Dosing 71.9 ml/min 08/28/22 05:45 Est GFR ( Amer) 82.0 ml/min 08/28/22 05:45 Est GFR (Non-Af Amer) 70.8 ml/min 08/28/22 05:45 BUN/Creatinine Ratio 20.4 (10-20) H 08/28/22 05:45 Glucose 126 mg/dl (70-99(Fasting)) H 08/28/22 05:45 Calcium 8.8 mg/dl (8.5-10.1) 08/28/22 05:45 Total Bilirubin 0.3 mg/dl (0.2-1.0) 08/28/22 05:45 AST 38 U/L (13-39) 08/28/22 05:45 ALT 47 U/L (7-52) 08/28/22 05:45 Alkaline Phosphatase 84 U/L (34-104) 01/08/23 05:45 Troponin I High Sens 4.8 pg/ml (0-20) 08/28/22 07:45 Total Protein 7.6 gm/dl (6.0-8.3) 08/28/22 05:45 Albumin 4.2 gm/dl (3.4-5.0) 08/28/22 05:45 Globulin 3.4 gm/dl (2.5-4.0) 08/28/22 05:45 Albumin/Globulin Ratio 1.2 (0.9-2) 08/28/22 05:45 Lipase 41 U/L (11-82) 08/28/22 05:45 SARS-CoV-2, RNA, NAAT NEGATIVE (NEGATIVE) 08/28/22 08:20 Impressions Abdomen/Pelvis CT 08/28/22 05:[address] WITH IV CONTRAST CT DOSE: 607.44 mGy.cm HISTORY: epigastric pain, vomiting TECHNIQUE: Multiaxial CT images of the abdomen and pelvis were performed following the use of intravenous contrast. A dose lowering technique was utilized adhering to the principles of ALARA. COMPARISON STUDY: Abdomen and pelvis CT 05/31/2019. FINDINGS: Mild dependent changes seen at the lung bases. No pneumoperitoneum. No pneumatosis. Old posttraumatic and postoperative changes seen within the proxi mal left femur. There is a 5 mm gallstone identified. Questionable minimal inflammatory change surrounding the gallbladder. The gallbladder is mildly distended. Normal caliber common bile duct. The liver, adrenal glands, and pancreas are unremarkable. Small bilateral peripelvic renal cysts are noted. No hydronephrosis. No retroperitoneal lymphadenopathy. Tiny fat-containing umbilical hernia. The bladder is mildly distended. No pelvic free fluid or pelvic lymphadenopathy. Colonic diverticulosis. No evidence for acute diverticulitis. No bowel wall thickening or obstruction. The appendix is surgi gaudencio absent. IMPRESSION: 1. The gallbladder is mildly distended and there is minimal surrounding inflammatory change. There is also a 5 mm stone at the gallbladder neck. Therefore, this may represent an early acute cholecystitis. Surgical consultation recommended. 2. No bowel wall thickening or obstruction. 3. Colonic diverticulosis. No evidence for acute diverticulitis. ACT 112: Negative or not required by law. Electronically signed by: Wagner Treviño M.D. 08/28/2022 7:21 AM Chest X-Ray 08/28/22 06:46 XR chest 1V portable HISTORY: Atypical chest pain COMPARISON: Chest 07/15/2022. FINDINGS: No pneumothorax. No pleural effusions. The cardiac silhouette remains mildly enlarged. There are old, healed bilateral rib fractures again noted. No new focal lung consolidations to suggest a pneumonia. No evidence for pulmonary edema. A right jugular Port-A-Cath terminates in the SVC. IMPRESSION: No significant change compared to the prior study. No acute process. ACT 112: Negative or not required by law. Electronically signed by: Wagner Treviño M.D. 08/28/2022 8:05 AM Code Status & VTE Plan VTE Prophylaxis Plan VTE Prophylaxis will be ordered: No
[2022-08-28 12:19] LABS: Appearance Urine Clear (Clear); Bilirubin Urine Negative (Negative); Blood Urine Negative (Negative); Color Urine Yellow; Glucose Urine UA Negative (Negative); Ketones Urine Negative (Negative); Leukocyte Esterase Urine Negative (Negative); Nitrite Urine Negative (Negative); Protein Urine Negative (Negative); Specific Gravity Urine > 1.045 (1.000-1.030); Urobilinogen Urine Negative (Negative)
--- NOTE | 2022-08-28 14:14 | Cardiology Consultation ---
Date of Consultation August 28, 2022 Assessment & Plan (1) Acute cholecystitis: (2) CAD (coronary artery disease): (3) S/P coronary artery stent placement: (4) Preop cardiovascular exam: Plan The patient was counseled that given his history of coronary artery disease but lack of cardiac symptoms and nonischemic stress test within the last year that I would place him as a moderate risk for any adverse perioperative cardiovascular events with his risk being approximately less than 5%. He was further counseled that no further cardiac testing or invention would further lower that risk. He states that he understands, he is accepting of that risk and wishes to proceed with surgery No need to delay from a cardiac standpoint Given his history of LAD stenting aspirin must be continued uninterrupted throughout the perioperative period along with his metoprolol and rosuvastatin History of Present Illness Reason for Consultation: Preop risk assessment Requesting Physician: Dr. Valdez Attending Physician: Jake Valdez MD History of Present Illness It was my pleasure to see Mr. Moseley in cardiac consultation today August 28, 2022. He is a very pleasant 57-year-old gentleman who routinely follows with Dr. Richardson of our cardiology practice. He presented to [facility] in the early a.m. of 08/28/2022 with complaints of severe abdominal pain, nausea and vomiting. Upon arrival he was found to be suffering from acute cholecystitis and cholecystectomy is tentatively planned for tomorrow. He denies any recent cardiac complaints specifically denying any chest pain, shortness of breath, palpitations, lightheadedness, dizziness or syncope. He states he has been taking his medications as directed without issue. Past medical history: 1. Coronary artery disease with a history of a prior drug-eluting stent in the proximal LAD in 2016 and a drug-eluting stent placed in the mid LAD in August 2019 with nonischemic exercise stress echocardiogram October 2021 2. Dyslipidemia 3. Adenocarcinoma of the lung Allergies Allergy/AdvReac Type Severity Reaction Status Date / Time Penicillins AdvReac Mild N/V Verified 11/16/21 00:51 Home Medications Medication Instructions Recorded Confirmed Type Flonase 08/28/22 History aspirin 81 mg chewable tablet 81 mg PO 08/28/22 History lidocaine-prilocaine 2.5 %-2.5 % 08/28/22 08/28/22 History topical cream metoprolol succinate 25 mg 25 mg PO DAILY 08/28/22 08/28/22 History tablet,extended release 24 hr rosuvastatin 40 mg tablet 40 mg PO DAILY 08/28/22 08/28/22 History Patient History Medical History CAD (coronary artery disease) Lung cancer Surgical History History of cardiac cath 2013 History of cataract surgery LEFT History of heart artery stent failed stress test and found blockage -- stent x 1 2014 done [facility] and no longer cardiac doctor took plavix for one year and takes metoprolol and crestor Hx of appendectomy Hx of colonoscopy Hx of wisdom tooth extraction S/P lobectomy of lung Social History Smoking Status: Never smoker Tobacco Type: Cigarettes Second Hand Exposure: No; Hx Alcohol Use: No Hx Substance Use: No Preferred Language: Niuean Communication Ability: Effective Records Analysis Manager Required: No Beliefs That Will Affect Care: None Current Living Situation: Alone Feels Safe at Home: Yes Assistive Devices: None Review of Systems Review of Systems: All systems reviewed & are unremarkable except as noted in HPI & below Physical Exam Physical Exam: General: Awake, alert and oriented x 3. No acute distress. HEENT: Normocephalic, atraumatic. Pupils equal, round and reactive to light and accommodation. Extraocular muscles are intact. Anicteric sclera. Moist mucous membranes. Neck: No JVD. No bruit. Cardiovascular: Regular. Positive S-4. Normal S-1 and S-2. No S-3. No murmurs or rubs. Pulmonary: Clear to auscultation B/L. No rales, rhonchi or wheezing Abdomen: Bowel sounds x 4, soft. No rebound, guarding or tenderness. No organomegaly. Extremities: No clubbing, cyanosis or edema. +2 pedal pulses bilaterally. Skin: Warm and dry. Results & Data ([facility]) Vital Signs (Past 12 Hours) Vital Signs Temp Pulse Pulse Resp BP BP Pulse Ox 08/28/22 07:48 65 16 130/93 99 08/28/22 06:46 79 24 124/78 98 08/28/22 05:29 36.5 C 76 20 159/107 H 99 O2 Del Method 08/28/22 07:48 Room Air 08/28/22 06:46 Room Air 08/28/22 05:29 Room Air
[2022-08-28] MEDS: ROSUVASTATIN CALCIUM 20 MG TAB PO SCH (15:13)
[2022-08-28] MEDS: cefTRIAXone SODIUM 2,000 MG in DEXTROSE 5% 50 ML IV SCH (16:44)
[2022-08-28] MEDS: oxyCODONE HCL IR 5 MG TAB (IMMEDIATE RELEASE) PO PRN ×2 (16:53→23:12)
[2022-08-28] MEDS: MoRPHine SULFATE 2 MG/ML CARP IV PRN (19:41)
--- NOTE | 2022-08-28 22:52 | Electrocardiogram Report ---
Test Reason : Blood Pressure : / mmHG Vent. Rate : 052 BPM Atrial Rate : 052 BPM P-R Int : 168 ms QRS Dur : 100 ms QT Int : 412 ms P-R-T Axes : 014 -15 008 degrees QTc Int : 383 ms Sinus bradycardia Otherwise normal ECG When compared with ECG of 15-JUL-2022 11:48, No significant change was found Confirmed by Jhonny Maynard ([id number]) on 08/28/2022 10:52:10 PM Referred By: REFERRED SELF Confirmed By:Jhonny Maynard
[2022-08-29] MEDS: metroNIDAZOLE 500 MG/100 ML BAG IV SCH ×3 (04:30→21:34)
[2022-08-29] MEDS: MoRPHine SULFATE 2 MG/ML CARP IV PRN (04:31)
[2022-08-29 05:50] LABS: Basophils # (auto) 0.08 K/uL (0-0.2); Eosinophils # (auto) 0.43 K/uL (0-0.50); Eosinophils % (auto) 5.5 %; Hematocrit (blood only) 37.6 % (40.1-51.0); Hemoglobin 12.7 g/dl (14.0-18.0); Immature Granulocytes # (auto) 0.03 K/uL (0.00-0.02); Immature Granulocytes % (auto) 0.4 %; Lymphocytes # (auto) 2.29 K/uL (1.2-3.4); Lymphocytes % (auto) 29.1 %; Mean Corpuscular Hemoglobin 31.9 pg (25.0-34.0); Mean Corpuscular Hgb Conc 33.8 g/dL (32.0-36.0); Mean Corpuscular Volume 94.5 fL (80.0-100.0); Mean Platelet Volume 9.2 fL (9.4-12.4); Monocytes # (auto) 1.06 K/uL (0.24-0.82); Monocytes % (auto) 13.5 %; Neutrophils # (auto) 3.97 K/uL (1.4-6.5); Neutrophils % (auto) 50.5 %; Platelet Count 258 K/uL (130-400); RDW Coefficient of Variation 11.4 % (11.5-14.5); RDW Standard Deviation 39.3 fL (36.4-46.3); Red Blood Count 3.98 M/uL (4.63-6.08); White Blood Count 7.86 K/ul (4.8-10.8)
[2022-08-29 06:24] LABS: Albumin Globulin Ratio 1.2 (0.9-2); Albumin Level 3.6 gm/dl (3.4-5.0); BUN Creatinine Ratio 18.3 (10-20); Bilirubin,Total 0.4 mg/dl (0.2-1.0); Calcium 8.4 mg/dl (8.5-10.1); Creatinine Clr Calc Pharmacy 60.1 ml/min; Est GFR (African American) 68.6 ml/min; Est GFR (Non-African American) 59.2 ml/min; Globulin 3.1 gm/dl (2.5-4.0); Total Protein 6.7 gm/dl (6.0-8.3)
[2022-08-29] MEDS: PANTOprazole 40 MG in SYRINGE 0 ML IV SCH ×2 (09:15→21:34)
[2022-08-29] MEDS: SODIUM CHLORIDE 0.9% 1000ML 1,000 ML IV SCH ×2 (09:16→21:34)
--- NOTE | 2022-08-29 09:49 | Gastrointestinal Consultation ---
Date of Consultation August 29, 2022 Assessment & Plan (1) Upper abdominal pain: (2) Black stool: Patient is a 57 years old male who presented with epigastric abdominal pain radiating to right upper quadrant, associated with nausea and vomiting, found to have mildly inflamed gallbladder with gallbladder stone. Normal CBD. Normal LFTs and lipase otherwise. He was initially considered to get a laparoscopic cholecystectomy however reported he had black stools this morning without significant decrease of his blood count nor rise in BUN. Upon further questioning he admitted to have drank half a bottle of Pepto-Bismol prior to presenting to the ER due to his symptoms which he thought was related to hea rtburn. He denies any iron therapy or supplements, use of NSAIDs, no history of abdominal surgeries otherwise. - PPI IV BID - Suspect black stools related to Peptobismol use and doesn't sound like melena per his description (formed but in pieces, black, no rectal bleeding or blood in commode water), and suspect less likely it's related to UGI bleed. Nonetheless he is somewhat tender to palpation on LUQ abd on my exam and may benefit from EGD evaluation to r/o PUD, gastritis, Hpylori prior to undergoing lap cholecystectomy. We will arrange to have this done on 08/30 - Avoid NSAIDs - Monitor for gross s/s of GI bleeding and any drop in blood ct Supervising Physician Co-Signing Physician Notes I have personally seen and examined the patient with VIV Jean Baptiste. Her note reflects my exam and findings. I agree with her impression and plan. Will arrange EGD to rule out sinister UGI pathology. Mahad Olivares M.D. History of Present Illness Reason for Consultation: Possible upper GI bleed. Requesting Physician: Dr. Jake Valdez Attending Physician: Dr. Mahad Olivares History of Present Illness Patient is a 57 years old male with past medical histories including: Non-small cell lung cancer diagnosed in January 2022 status post left lower lobe lobectomy, chemotherapy and currently undergoing immunotherapy every 3 weeks. Last immunotherapy received was about 1-1/2-week ago. He also had history of CAD, status post LAD stent placements x2 in 2019. Patient presented yesterday with complaints of epigastric pain which woke him up out of his sleep, and radiates to right upper quadrant area associated with nausea and vomiting. Prior to that he thought that he has severe heartburn issues and bought Pepto-Bismol, drank half a bottle of this. Denies any associated fevers, chills, chest pain, shortness of breath. He has not had a bowel movement since Monday but this morning he had a bowel movement which was solid but in chunks and appeared black in color. Denies any rectal bleeding. His initial work-up with contrasted CT of the abdomen pelvis showed mildly distended gallbladder with minimal surrounding inflammation and about a 5 mm stone in the gallbladder neck area, normal CBD. Was scheduled for possible laparoscopic cholecystectomy however in light of his black stools this morning GI was consulted for possible upper GI bleed. Chart reviewed, noted that he is not having any leukocytosis, H&H lower slightly from baseline. Platelet count normal, BUN normal. LFTs and lipase normal. Never had any history of EGD or abd surgeries. He has had colonoscopies x3 for history of hyperplastic and adenomatous colon polyps. Is currently on baby aspirin, denies any anticoagulation therapies, denies uses of NSAIDs. As noted above he drank half a bottle of Pepto-Bismol prior to presenting to the hospital, denies any iron therapies. Allergies Allergy/AdvReac Type Severity Reaction Status Date / Time Penicillins AdvReac Mild N/V Verified 11/16/21 00:51 Home Medications Medication Instructions Recorded Confirmed Type Flonase 08/28/22 History aspirin 81 mg chewable tablet 81 mg PO 08/28/22 History lidocaine-prilocaine 2.5 %-2.5 % 08/28/22 08/28/22 History topical cream metoprolol succinate 25 mg 25 mg PO DAILY 08/28/22 08/28/22 History tablet,extended release 24 hr rosuvastatin 40 mg tablet 40 mg PO DAILY 08/28/22 08/28/22 History Patient History Medical History CAD (coronary artery disease) Lung cancer Surgical History History of cardiac cath 2013 History of cataract surgery LEFT History of heart artery stent failed stress test and found blockage -- stent x 1 2013 done [facility] and no longer cardiac doctor took plavix for one year and takes metoprolol and crestor Hx of appendectomy Hx of colonoscopy Hx of wisdom tooth extraction S/P lobectomy of lung Social History Smoking Status: Former smoker Tobacco Type: Cigarettes Second Hand Exposure: No; Hx Alcohol Use: Yes Alcohol type: beer Hx Substance Use: No Preferred Language: Uzbek Communication Ability: Effective Social Media Marketing Manager Required: No Beliefs That Will Affect Care: None Current Living Situation: Spouse Other Information That Helps Us Care for You: No Feels Safe at Home: Yes Safety Concerns: Feels Safe At This Time Assistive Devices: Glasses Review of Systems Review of Systems: All systems reviewed & are unremarkable except as noted in HPI & below Physical Exam Constitutional: WD/WN, vitals as above well groomed, cooperative and comfortable Eyes: PERRL, conjunctivae normal, anicteric sclerae ENMT: external ear and nose normal, oropharynx normal Respiratory: normal respiratory effort, lungs clear to auscultation Cardiovascular: RRR, no murmur, no edema Gastrointestinal (Abdomen): Soft, bowel sounds present, slightly tender to palpation on the left upper quadrant abdominal area. Skin: no rashes, warm and dry no jaundice Neurologic: Motor/Sensory: no asterixis Psychiatric: A+Ox3, euthymic affect Lymphatic: no lymphedema Results & Data ([facility]) Vital Signs (Past 12 Hours) Vital Signs Temp Pulse Pulse Resp BP Pulse Ox O2 Del Method 08/29/22 09:05 36.6 C 82 19 145/94 H 96 Room Air 08/29/22 05:55 82 08/29/22 02:29 36.8 C 64 18 124/86 95 Room Air 08/28/22 22:00 67 08/28/22 23:11 36.8 C 68 18 143/79 H 98 Room Air
--- NOTE | 2022-08-29 09:52 | Surgery Progress Note ---
Date of Service August 29, 2022 Assessment & Plan (1) Acute cholecystitis: Plan: IVF and IV abx NPO He is cleared from a cardiology and oncology standpoint Given the equivocal findings of cholecystitis on CT scan, the normal white blood cell count, the black tarry stool as well as the drop in hematocrit, I would recommend GI consult for EGD to look for a possible ulcer or gastritis as the cause of his symptomatology prior to any surgical intervention on his gallb ladder. I have discussed this with GI. We will await for results of this work- up. If he has a normal EGD, I would plan to proceed with franicsco sammy. We will continue to follow. Admission and Anticipated Discharge Date Admission Date: August 28, 2022 Subjective Today he states he is not having any pain, nausea, vomiting. He just had a black tarry stool which is visible in the toilet. He denies any maroon stool or bright red blood. He denies vomiting any blood in the past. Of note, his hemoglobin has dropped one-point overnight. Physical Exam Constitutional: WD/WN, vitals as above Eyes: PERRL, conjunctivae normal, anicteric sclerae Gastrointestinal (Abdomen): Inspection/Auscultation: abdomen normal to inspection and normal bowel sounds Percussion/Palpation: abdomen soft; abdomen nontender, no guarding and abdomen not rigid Skin: no rashes, warm and dry Psychiatric: Orientation: alert and oriented x 3 Results & Data ([facility]) Vital Signs (Past 12 Hours) Vital Signs Temp Pulse Pulse Resp BP Pulse Ox O2 Del Method 08/29/22 09:05 36.6 C 82 19 145/94 H 96 Room Air 08/29/22 05:55 82 08/29/22 02:29 36.8 C 64 18 124/86 95 Room Air 08/28/22 22:00 67 08/28/22 23:11 36.8 C 68 18 143/79 H 98 Room Air Laboratory Results 08/29/22 08/29/22 08/29/22 Range/Units 05:28 05:28 05:28 WBC 7.86 (4.8-10.8) K/ul RBC 3.98 L (4.63-6.08) M/uL Hgb 12.7 L (14.0-18.0) g/dl Hct 37.6 L (40.1-51.0) % MCV 94.5 (80.0-100.0) fL MCH 31.9 (25.0-34.0) pg MCHC 33.8 (32.0-36.0) g/dL RDW Std Deviation 39.3 (36.4-46.3) fL RDW Coeff of Rebeca 11.4 L (11.5-14.5) % Plt Count 258 (130-400) K/uL MPV 9.2 L (9.4-12.4) fL Immature Gran % (Auto) 0.4 % Neut % (Auto) 50.5 % Lymph % (Auto) 29.1 % [place] % (Auto) 13.5 % Eos % (Auto) 5.5 % Baso % (Auto) 1.0 % Neut # (Auto) 3.97 (1.4-6.5) K/uL Lymph # (Auto) 2.29 (1.2-3.4) K/uL [place] # (Auto) 1.06 H (0.24-0.82) K/uL Eos # (Auto) 0.43 (0-0.50) K/uL Baso # (Auto) 0.08 (0-0.2) K/uL Immature Gran # (Auto) 0.03 H (0.00-0.02) K/uL Sodium 136 (136-145) mmol/L Potassium 4.0 (3.5-5.1) mmol/L Chloride 101 (98-107) mmol/L Carbon Dioxide 31 (21-32) mmol/L Anion Gap 4 (3-11) BUN 24 H (6-23) mg/dl Creatinine 1.31 (0.6-1.4) mg/dl Est Cr Clr Drug Dosing 60.1 ml/min Est GFR ( Amer) 68.6 ml/min Est GFR (Non-Af Amer) 59.2 ml/min BUN/Creatinine Ratio 18.3 (10-20) Glucose 109 H (70-99(Fasting)) mg/dl Calcium 8.4 L (8.5-10.1) mg/dl Total Bilirubin 0.4 (0.2-1.0) mg/dl AST 33 (13-39) U/L ALT 41 (7-52) U/L Alkaline Phosphatase 74 (34-104) U/L Total Protein 6.7 (6.0-8.3) gm/dl Albumin 3.6 (3.4-5.0) gm/dl Globulin 3.1 (2.5-4.0) gm/dl Albumin/Globulin Ratio 1.2 (0.9-2) Urine Color Urine Appearance (Clear) Urine pH (4.5-7.5) Ur Specific [place] (1.000-1.030) Urine Protein (Negative) Urine Glucose (UA) (Negative) Urine Ketones (Negative) Urine Blood (Negative) Urine Nitrite (Negative) Urine Bilirubin (Negative) Urine Urobilinogen (Negative) Ur Leukocyte Esterase (Negative) Hepatitis C Ab (EIA) Pending Hep C Ab Signal/Cutoff Pending SARS-CoV-2, RNA, NAAT (NEGATIVE) 08/28/22 08/28/22 Range/Units 12:07 08:20 WBC (4.8-10.8) K/ul RBC (4.63-6.08) M/uL Hgb (14.0-18.0) g/dl Hct (40.1-51.0) % MCV (80.0-100.0) fL MCH (25.0-34.0) pg MCHC (32.0-36.0) g/dL RDW Std Deviation (36.4-46.3) fL RDW Coeff of Rebeca (11.5-14.5) % Plt Count (130-400) K/uL MPV (9.4-12.4) fL Immature Gran % (Auto) % Neut % (Auto) % Lymph % (Auto) % [place] % (Auto) % Eos % (Auto) % Baso % (Auto) % Neut # (Auto) (1.4-6.5) K/uL Lymph # (Auto) (1.2-3.4) K/uL [place] # (Auto) (0.24-0.82) K/uL Eos # (Auto) (0-0.50) K/uL Baso # (Auto) (0-0.2) K/uL Immature Gran # (Auto) (0.00-0.02) K/uL Sodium (136-145) mmol/L Potassium (3.5-5.1) mmol/L Chloride (98-107) mmol/L Carbon Dioxide (21-32) mmol/L Anion Gap (3-11) BUN (6-23) mg/dl Creatinine (0.6-1.4) mg/dl Est Cr Clr Drug Dosing ml/min Est GFR ( Amer) ml/min Est GFR (Non-Af Amer) ml/min BUN/Creatinine Ratio (10-20) Glucose (70-99(Fasting)) mg/dl Calcium (8.5-10.1) mg/dl Total Bilirubin (0.2-1.0) mg/dl AST (13-39) U/L ALT (7-52) U/L Alkaline Phosphatase (34-104) U/L Total Protein (6.0-8.3) gm/dl Albumin (3.4-5.0) gm/dl Globulin (2.5-4.0) gm/dl Albumin/Globulin Ratio (0.9-2) Urine Color Yellow Urine Appearance Clear (Clear) Urine pH 5.0 (4.5-7.5) Ur Specific [place] > 1.045 H (1.000-1.030) Urine Protein Negative (Negative) Urine Glucose (UA) Negative (Negative) Urine Ketones Negative (Negative) Urine Blood Negative (Negative) Urine Nitrite Negative (Negative) Urine Bilirubin Negative (Negative) Urine Urobilinogen Negative (Negative) Ur Leukocyte Esterase Negative (Negative) Hepatitis C Ab (EIA) Hep C Ab Signal/Cutoff SARS-CoV-2, RNA, NAAT NEGATIVE (NEGATIVE)
[2022-08-29] MEDS: METOPROLOL SUCC 25MG EXT REL TAB PO SCH (13:05)
[2022-08-29] MEDS: ROSUVASTATIN CALCIUM 20 MG TAB PO SCH (13:05)
[2022-08-29] MEDS: ASPIRIN 81 MG CHEW PO SCH (13:06)
[2022-08-29] MEDS: cefTRIAXone SODIUM 2,000 MG in DEXTROSE 5% 50 ML IV SCH (13:15)
--- NOTE | 2022-08-29 14:52 | Hospitalist Progress Note ---
Date of Service August 29, 2022 Assessment & Plan (1) Upper GI bleed: (2) Acute cholecystitis: Plan: Patient presented with severe epigastric pain associate with nausea and vomiting. CT abdomen and pelvis showed signs of acute cholecystitis with gallstone in neck of the gallbladder. No leukocytosis BUN/creatinine within normal limits. Liver enzymes within normal limits. EKG shows sinus bradycardia; no ST or T wave changes. Risk stratification; patient has history of unstable angina with LAD stents in the past. Currently, he is independent of ADLs and is able greater than 4 METS. No presenting chest pain or shortness of breath. EKG shows sinus bradycardia with no ST or T wave changes; no pathological Q waves. RCRI -1 (due to elevated risk surgery). Class II risk with 6% 30-day risk of , [place] or cardiac arrest. Will obtain cardiology's opinion if patient will require any other preoperative test prior to surgery. Discussed with on-call oncologist; there is no reason from the standpoint of his cancer and no reason from the standpoint of his current treatment to hold off on surgery. Cardiology recommend appreciated; aspirin, metoprolol and rosuvastatin to be continued on uninterrupted during the perioperative period. No need to delay surgery from cardiac standpoint. Patient reportedly had black tarry stool today morning. Hemoglobin dropped by one-point. Plan; Continue on Protonix IV twice daily GI planning to do endoscopy tomorrow Surgery on board for lap sammy; timing most likely after endoscopy for GI. Chronic conditions; CADstress echo done in October 2021 which was negative for any inducible ischemia. EF of 55 to 60%. Currently on aspirin and metoprolol. Non-small cell lung cancer status post left lower lobe lobectomy and mediastinal node dissection on January 2022, received adjuvant treatment with Alimta, cisplatin X4 cycles; currently on immunotherapy( Atezolizumab) Full code DVT prophylaxis SCDs. Admission and Anticipated Discharge Date Admission Date: August 28, 2022 Subjective Patient seen and examined at bedside. He reportedly had melena in the morning; reports epigastric and right upper quadrant pain. Afebrile. Review of Systems Review of Systems: All systems reviewed & are unremarkable except as noted in Subjective Physical Exam Physical Exam: Constitutional: WD/WN, vitals as above, NAD, sitting up in bed, pleasant, conversing easily Respiratory: normal respiratory effort, lungs clear to auscultation, no wheeze, rales, rhonchi. Normal insp/exp effort, no accessory muscle use Cardiovascular: RRR, no murmur, no edema Vessels: no JVD or carotid bruit Chest: normal inspection of chest Abdomen: Tenderness present in epigastric region; bowel sound present. Musculoskeletal: no cyanosis or clubbing, extremities motor strength 5/5 Skin: no rashes, warm and dry normal turgor Neurologic: PERRL, EOMI, accommodation nl, no face palsy, no dysarthria CN's II- XI intact bilaterally and moves all extremities Psychiatric: A+Ox3, euthymic affect : deferred Results & Data Results & Data ([facility]) Vital Signs (Past 12 Hours) Vital Signs Temp Pulse Pulse Resp BP Pulse Ox O2 Del Method 08/29/22 12:30 37.1 C 82 19 150/91 H 96 Room Air 08/29/22 09:05 36.6 C 82 19 145/94 H 96 Room Air 08/29/22 05:55 82 Laboratory Results Laboratory Results WBC 7.86 K/ul (4.8-10.8) 08/29/22 05:28 RBC 3.98 M/uL (4.63-6.08) L 08/29/22 05:28 Hgb 12.7 g/dl (14.0-18.0) L 08/29/22 05:28 Hct 37.6 % (40.1-51.0) L 08/29/22 05:28 MCV 94.5 fL (80.0-100.0) 08/29/22 05:28 MCH 31.9 pg (25.0-34.0) 08/29/22 05:28 MCHC 33.8 g/dL (32.0-36.0) 08/29/22 05:28 RDW Std Deviation 39.3 fL (36.4-46.3) 08/29/22 05:28 RDW Coeff of Rebeca 11.4 % (11.5-14.5) L 08/29/22 05:28 Plt Count 258 K/uL (130-400) 08/29/22 05:28 MPV 9.2 fL (9.4-12.4) L 08/29/22 05:28 Immature Gran % (Auto) 0.4 % 08/29/22 05:28 Neut % (Auto) 50.5 % 08/29/22 05:28 Lymph % (Auto) 29.1 % 08/29/22 05:28 [place] % (Auto) 13.5 % 08/29/22 05:28 Eos % (Auto) 5.5 % 08/29/22 05:28 Baso % (Auto) 1.0 % 08/29/22 05:28 Neut # (Auto) 3.97 K/uL (1.4-6.5) 08/29/22 05:28 Lymph # (Auto) 2.29 K/uL (1.2-3.4) 08/29/22 05:28 [place] # (Auto) 1.06 K/uL (0.24-0.82) H 08/29/22 05:28 Eos # (Auto) 0.43 K/uL (0-0.50) 08/29/22 05:28 Baso # (Auto) 0.08 K/uL (0-0.2) 08/29/22 05:28 Immature Gran # (Auto) 0.03 K/uL (0.00-0.02) H 08/29/22 05:28 Sodium 136 mmol/L (136-145) 08/29/22 05:28 Potassium 4.0 mmol/L (3.5-5.1) 08/29/22 05:28 Chloride 101 mmol/L (98-107) 08/29/22 05:28 Carbon Dioxide 31 mmol/L (21-32) 08/29/22 05:28 Anion Gap 4 (3-11) 08/29/22 05:28 BUN 24 mg/dl (6-23) H 08/29/22 05:28 Creatinine 1.31 mg/dl (0.6-1.4) 08/29/22 05:28 Est Cr Clr Drug Dosing 60.1 ml/min 08/29/22 05:28 Est GFR ( Amer) 68.6 ml/min 08/29/22 05:28 Est GFR (Non-Af Amer) 59.2 ml/min 08/29/22 05:28 BUN/Creatinine Ratio 18.3 (10-20) 08/29/22 05:28 Glucose 109 mg/dl (70-99(Fasting)) H 08/29/22 05:28 Calcium 8.4 mg/dl (8.5-10.1) L 08/29/22 05:28 Total Bilirubin 0.4 mg/dl (0.2-1.0) 08/29/22 05:28 AST 33 U/L (13-39) 08/29/22 05:28 ALT 41 U/L (7-52) 08/29/22 05:28 Alkaline Phosphatase 74 U/L (34-104) 08/29/22 05:28 Troponin I High Sens 4.8 pg/ml (0-20) 08/28/22 07:45 Total Protein 6.7 gm/dl (6.0-8.3) 08/29/22 05:28 Albumin 3.6 gm/dl (3.4-5.0) 08/29/22 05:28 Globulin 3.1 gm/dl (2.5-4.0) 08/29/22 05:28 Albumin/Globulin Ratio 1.2 (0.9-2) 08/29/22 05:28 Lipase 41 U/L (11-82) 08/28/22 05:45 Urine Color Yellow 08/28/22 12:07 Urine Appearance Clear (Clear) 08/28/22 12:07 Urine pH 5.0 (4.5-7.5) 08/28/22 12:07 Ur Specific [place] > 1.045 (1.000-1.030) H 08/28/22 12:07 Urine Protein Negative (Negative) 08/28/22 12:07 Urine Glucose (UA) Negative (Negative) 08/28/22 12:07 Urine Ketones Negative (Negative) 08/28/22 12:07 Urine Blood Negative (Negative) 08/28/22 12:07 Urine Nitrite Negative (Negative) 08/28/22 12:07 Urine Bilirubin Negative (Negative) 08/28/22 12:07 Urine Urobilinogen Negative (Negative) 08/28/22 12:07 Ur Leukocyte Esterase Negative (Negative) 08/28/22 12:07 SARS-CoV-2, RNA, NAAT NEGATIVE (NEGATIVE) 08/28/22 08:20 Impressions Abdomen/Pelvis CT 08/28/22 05:[address] WITH IV CONTRAST CT DOSE: 607.44 mGy.cm HISTORY: epigastric pain, vomiting TECHNIQUE: Multiaxial CT images of the abdomen and pelvis were performed following the use of intravenous contrast. A dose lowering technique was utilized adhering to the principles of ALARA. COMPARISON STUDY: Abdomen and pelvis CT 05/31/2019. FINDINGS: Mild dependent changes seen at the lung bases. No pneumoperitoneum. No pneumatosis. Old posttraumatic and postoperative changes seen within the proximal left femur. There is a 5 mm gallstone identified. Questionable minimal inflammatory change surrounding the gallbladder. The gallbladder is mildly distended. Normal caliber common bile duct. The liver, adrenal glands, and pancreas are unremarkable. Small bilateral peripelvic renal cysts are noted. No hydronephrosis. No retroperitoneal lymphadenopathy. Tiny fat-containing umbilical hernia. The bladder is mildly distended. No pelvic free fluid or pelvic lymphadenopathy. Colonic diverticulosis. No evidence for acute diverticulitis. No bowel wall thickening or obstruction. The appendix is surgically absent. IMPRESSION: 1. The gallbladder is mildly distended and there is minimal surrounding inflammatory change. There is also a 5 mm stone at the gallbladder neck. Therefore, this may represent an early acute cholecystitis. Surgical consultation recommended. 2. No bowel wall thickening or obstruction. 3. Colonic diverticulosis. No evidence for acute diverticulitis. ACT 112: Negative or not required by law. Electronically signed by: Wagner Treviño M.D. 08/28/2022 7:21 AM Chest X-Ray 08/28/22 06:46 XR chest 1V portable HISTORY: Atypical chest pain COMPARISON: Chest 07/15/2022. FINDINGS: No pneumothorax. No pleural effusions. The cardiac silhouette remains mildly enlarged. There are old, healed bilateral rib fractures again noted. No new focal lung consolidations to suggest a pneumonia. No evidence for pulmonary edema. A right jugular Port-A-Cath terminates in the SVC. IMPRESSION: No significant change compared to the prior study. No acute process. ACT 112: Negative or not required by law. Electronically signed by: Wagner Treviño M.D. 08/28/2022 8:05 AM
[2022-08-30] MEDS: metroNIDAZOLE 500 MG/100 ML BAG IV SCH ×3 (05:20→21:22)
[2022-08-30 06:29] LABS: Basophils # (auto) 0.07 K/uL (0-0.2); Basophils % (auto) 0.9 %; Eosinophils # (auto) 0.41 K/uL (0-0.50); Eosinophils % (auto) 5.3 %; Hematocrit (blood only) 39.4 % (40.1-51.0); Hemoglobin 13.3 g/dl (14.0-18.0); Immature Granulocytes # (auto) 0.02 K/uL (0.00-0.02); Immature Granulocytes % (auto) 0.3 %; Lymphocytes # (auto) 1.79 K/uL (1.2-3.4); Lymphocytes % (auto) 23.1 %; Mean Corpuscular Hemoglobin 31.7 pg (25.0-34.0); Mean Corpuscular Hgb Conc 33.8 g/dL (32.0-36.0); Mean Platelet Volume 8.8 fL (9.4-12.4); Monocytes # (auto) 0.86 K/uL (0.24-0.82); Monocytes % (auto) 11.1 %; Neutrophils # (auto) 4.59 K/uL (1.4-6.5); Neutrophils % (auto) 59.3 %; Platelet Count 288 K/uL (130-400); RDW Coefficient of Variation 11.3 % (11.5-14.5); RDW Standard Deviation 38.4 fL (36.4-46.3); Red Blood Count 4.19 M/uL (4.63-6.08); White Blood Count 7.74 K/ul (4.8-10.8)
[2022-08-30 07:03] LABS: BUN Creatinine Ratio 13.4 (10-20); Calcium 8.9 mg/dl (8.5-10.1); Creatinine Clr Calc Pharmacy 70.5 ml/min; Est GFR (African American) 82.9 ml/min; Est GFR (Non-African American) 71.5 ml/min; Potassium 4.4 mmol/L (3.5-5.1)
--- NOTE | 2022-08-30 08:43 | History & Physical Report ---
Date of Service August 30, 2022 Assessment & Plan (1) Melena: Plan: pt stable for EGD Admission and Anticipated Discharge Date Admission Date: August 28, 2022 History of Present Illness Chief Complaint: anemia and melena Primary Care Provider: Valentin Johns MD pt with anemia and dark stools for EGD Allergies Allergy/AdvReac Type Severity Reaction Status Date / Time Penicillins AdvReac Mild N/V Verified 11/16/21 00:51 Home Medications Medication Instructions Recorded Confirmed Type Flonase 08/28/22 History aspirin 81 mg chewable tablet 81 mg PO 08/28/22 History lidocaine-prilocaine 2.5 %-2.5 % 08/28/22 08/28/22 History topical cream metoprolol succinate 25 mg 25 mg PO DAILY 08/28/22 08/28/22 History tablet,extended release 24 hr rosuvastatin 40 mg tablet 40 mg PO DAILY 08/28/22 08/28/22 History Past Med/Surg History Medical History CAD (coronary artery disease) Lung cancer Surgical History History of cardiac cath 2014 History of cataract surgery LEFT History of heart artery stent failed stress test and found blockage -- stent x 1 2014 done [facility] and no longer cardiac doctor took plavix for one year and takes metoprolol and crestor Hx of appendectomy Hx of colonoscopy Hx of wisdom tooth extraction S/P lobectomy of lung Social History Smoking Status: Former smoker Tobacco Type: Cigarettes Second Hand Exposure: No; Hx Alcohol Use: Yes Alcohol type: beer Hx Substance Use: No Preferred Language: Maltese Communication Ability: Effective Primary Health Organisation Manager Required: No Beliefs That Will Affect Care: None Current Living Situation: Spouse Other Information That Helps Us Care for You: No Feels Safe at Home: Yes Safety Concerns: Feels Safe At This Time Assistive Devices: None Physical Exam Constitutional: WD/WN, vitals as above Respiratory: normal respiratory effort, lungs clear to auscultation Cardiovascular: RRR, no murmur, no edema Gastrointestinal (Abdomen): normal bowel sounds, soft, nontender, no hepatosplenomegaly Results & Data ([facility]) Vital Signs (Past 12 Hours) Vital Signs Temp Pulse Resp BP Pulse Ox O2 Del Method 08/30/22 08:14 36.2 C L 62 18 148/84 H 98 Room Air 08/30/22 06:40 36.2 C L 74 18 145/75 H 99 Room Air 08/30/22 02:54 36.6 C 79 18 136/80 98 Room Air 08/29/22 22:55 36.9 C 86 20 129/75 98 Room Air Code Status & VTE Plan VTE Prophylaxis Plan VTE Prophylaxis will be ordered: No
[2022-08-30] MEDS ORDERED: LIDOCAINE 2% MPF LOCAL 5 ML VIAL INFIL ONE ×2 (09:05→16:27)
[2022-08-30] MEDS ORDERED: PROPOFOL IV EMULSION 10 MG/ML 20 ML VIAL IV ONE ×2 (09:05→16:27)
--- NOTE | 2022-08-30 09:21 | GI REPORT ---
Patient Name: Gustavo Moseley Procedure Date: 08/30/2022 8:32 AM Date of : 1965 Admit Type: Inpatient Age: 57 Gender: Male Attending MD: Mahad Olivares MD, Procedure: Upper GI endoscopy Providers: Mahad Olivares MD Referring MD: Jake Valdez Md Indications: Melena, Anemia Medicines: See the Anesthesia note for documentation of the administered medications Complications: No immediate complications. Estimated Blood Loss: Estimated blood loss: none. Procedure: Pre-Anesthesia Assessment: - Prior to the procedure, a History and Physical was performed, and patient medications, allergies and sensitivities were reviewed. The patient's tolerance of previous anesthesia was reviewed. - The risks and benefits of the procedure and the sedation options and risks were discussed with the patient. All questions were answered and informed consent was obtained. - Patient identification and proposed procedure were verified prior to the procedure by the physician and the nurse. The procedure was verified in the pre-procedure area. - Pre-procedure physical examination revealed no contraindications to sedation. - After reviewing the risks and benefits, the patient was deemed in satisfactory condition to undergo the procedure. After obtaining informed consent, the endoscope was passed under direct vision. Throughout the procedure, the patient's blood pressure, pulse, and oxygen saturations were monitored continuously. The Endoscope was introduced through the mouth, and advanced to the third part of duodenum. The upper GI endoscopy was accomplished without difficulty. The patient tolerated the procedure well. Findings: The esophagus was normal. The stomach was normal. The examined duodenum was normal. The cardia and gastric fundus were normal on retroflexion. Impression: - Normal esophagus. - Normal stomach. - Normal examined duodenum. - No specimens collected. Recommendation: - Return patient to hospital em for ongoing care. Mahad Olivares M.D. Mahad Olivares MD 08/30/2022 9:20:39 AM This report has been signed electronically. Note Initiated On: 08/30/2022 8:32 AM Number of Addenda: 0 I attest to the content of the Intraoperative Record and orders documented therein, exceptions below {[id number]}
--- NOTE | 2022-08-30 09:59 | Anesthesiology Progress Note ---
Date of Service August 30, 2022 Anesthesia Post Procedure Vital Signs Vital Signs: Temp Pulse Pulse Resp BP Pulse Ox O2 Del Method 08/30/22 09:48 36.5 C 64 19 134/84 97 Room Air 08/30/22 09:34 57 L 18 133/91 95 Room Air 08/30/22 09:19 61 18 130/90 95 Room Air 08/30/22 09:04 70 16 125/87 96 Room Air 08/30/22 08:14 36.2 C L 62 18 148/84 H 98 Room Air 08/30/22 06:40 36.2 C L 74 18 145/75 H 99 Room Air 08/30/22 02:54 36.6 C 79 18 136/80 98 Room Air 08/29/22 22:55 36.9 C 86 20 129/75 98 Room Air 08/29/22 19:10 36.7 C 67 18 139/94 96 Room Air 08/29/22 16:33 36.6 C 60 19 146/86 H 97 Room Air 08/29/22 14:12 67 08/29/22 12:30 37.1 C 82 19 150/91 H 96 Room Air Pain Intensity Abdomen: Pain Intensity: 3 Transfer of Care Handoff Completed per policy Notes Mental Status: alert / awake / arousable and participated in evaluation Patient Amnestic to Procedure: Yes Nausea / Vomiting: adequately controlled Pain: adequately controlled Airway Patency, RR, SpO2: stable & adequate BP & HR: stable & adequate Hydration State: stable & adequate Anesthetic Complications: no major complications apparent and Pt Satisfied with anesthetic care
[2022-08-30] MEDS: SODIUM CHLORIDE 0.9% 1000ML 1,000 ML IV SCH ×2 (13:00→21:23)
[2022-08-30] MEDS: cefTRIAXone SODIUM 2,000 MG in DEXTROSE 5% 50 ML IV SCH (14:01)
--- NOTE | 2022-08-30 15:18 | History & Physical Bridge Note ---
Date of Service August 30, 2022 History & Physical Bridge Note I have examined the patient, reviewed the History & Physical and in the interval since the performance of the History & Physical I have noted the following changes of clinical significance: no changes noted
--- NOTE | 2022-08-30 15:19 | Surgery Progress Note ---
Date of Service August 30, 2022 Assessment & Plan (1) Acute cholecystitis: Plan EGD was negative this morning. We discussed the risks and benefits of a laparoscopic cholecystectomy. All his questions were answered, and he is agreeable to proceed. We will take him to the operating room this afternoon. Admission and Anticipated Discharge Date Admission Date: August 28, 2022 Subjective Feeling well. Had a EGD this morning, normal. He denies nausea or vomiting. Denies fevers or chills. Physical Exam Physical Exam: Alert and oriented x3, no acute distress Abdomen: Soft, nontender, nondistended Results & Data ([facility]) Vital Signs (Past 12 Hours) Vital Signs Temp Pulse Pulse Resp BP Pulse Ox O2 Del Method 08/30/22 11:44 36.4 C L 52 L 19 123/80 97 Room Air 08/30/22 06:59 59 L 08/30/22 09:48 36.5 C 64 19 134/84 97 Room Air 08/30/22 09:34 57 L 18 133/91 95 Room Air 08/30/22 09:19 61 18 130/90 95 Room Air 08/30/22 09:04 70 16 125/87 96 Room Air 08/30/22 08:14 36.2 C L 62 18 148/84 H 98 Room Air 08/30/22 06:40 36.2 C L 74 18 145/75 H 99 Room Air Laboratory Results 08/30/22 08/30/22 08/29/22 Range/Units 05:48 05:48 20:39 WBC 7.74 (4.8-10.8) K/ul RBC 4.19 L (4.63-6.08) M/uL Hgb 13.3 L (14.0-18.0) g/dl Hct 39.4 L (40.1-51.0) % MCV 94.0 (80.0-100.0) fL MCH 31.7 (25.0-34.0) pg MCHC 33.8 (32.0-36.0) g/dL RDW Std Deviation 38.4 (36.4-46.3) fL RDW Coeff of Rebeca 11.3 L (11.5-14.5) % Plt Count 288 (130-400) K/uL MPV 8.8 L (9.4-12.4) fL Immature Gran % (Auto) 0.3 % Neut % (Auto) 59.3 % Lymph % (Auto) 23.1 % [place] % (Auto) 11.1 % Eos % (Auto) 5.3 % Baso % (Auto) 0.9 % Neut # (Auto) 4.59 (1.4-6.5) K/uL Lymph # (Auto) 1.79 (1.2-3.4) K/uL [place] # (Auto) 0.86 H (0.24-0.82) K/uL Eos # (Auto) 0.41 (0-0.50) K/uL Baso # (Auto) 0.07 (0-0.2) K/uL Immature Gran # (Auto) 0.02 (0.00-0.02) K/uL Sodium 138 (136-145) mmol/L Potassium 4.4 (3.5-5.1) mmol/L Chloride 104 (98-107) mmol/L Carbon Dioxide 30 (21-32) mmol/L Anion Gap 4 (3-11) BUN 15 (6-23) mg/dl Creatinine 1.12 (0.6-1.4) mg/dl Est Cr Clr Drug Dosing 70.5 ml/min Est GFR ( Amer) 82.9 ml/min Est GFR (Non-Af Amer) 71.5 ml/min BUN/Creatinine Ratio 13.4 (10-20) Glucose 102 H (70-99(Fasting)) mg/dl Calcium 8.9 (8.5-10.1) mg/dl Stool Occult Bld Scrn Cancelled Hepatitis C Ab (EIA) (NON-REACTIVE) Hep C Ab Signal/Cutoff (<1.00) 08/29/22 Range/Units 05:28 WBC (4.8-10.8) K/ul RBC (4.63-6.08) M/uL Hgb (14.0-18.0) g/dl Hct (40.1-51.0) % MCV (80.0-100.0) fL MCH (25.0-34.0) pg MCHC (32.0-36.0) g/dL RDW Std Deviation (36.4-46.3) fL RDW Coeff of Rebeca (11.5-14.5) % Plt Count (130-400) K/uL MPV (9.4-12.4) fL Immature Gran % (Auto) % Neut % (Auto) % Lymph % (Auto) % [place] % (Auto) % Eos % (Auto) % Baso % (Auto) % Neut # (Auto) (1.4-6.5) K/uL Lymph # (Auto) (1.2-3.4) K/uL [place] # (Auto) (0.24-0.82) K/uL Eos # (Auto) (0-0.50) K/uL Baso # (Auto) (0-0.2) K/uL Immature Gran # (Auto) (0.00-0.02) K/uL Sodium (136-145) mmol/L Potassium (3.5-5.1) mmol/L Chloride (98-107) mmol/L Carbon Dioxide (21-32) mmol/L Anion Gap (3-11) BUN (6-23) mg/dl Creatinine (0.6-1.4) mg/dl Est Cr Clr Drug Dosing ml/min Est GFR ( Amer) ml/min Est GFR (Non-Af Amer) ml/min BUN/Creatinine Ratio (10-20) Glucose (70-99(Fasting)) mg/dl Calcium (8.5-10.1) mg/dl Stool Occult Bld Scrn Hepatitis C Ab (EIA) REACTIVE A (NON-REACTIVE) Hep C Ab Signal/Cutoff 1.04 H (<1.00)
--- NOTE | 2022-08-30 16:04 | Hospitalist Progress Note ---
Date of Service August 30, 2022 Assessment & Plan (1) Upper GI bleed: (2) Acute cholecystitis: Plan: Patient presented with severe epigastric pain associate with nausea and vomiting. CT abdomen and pelvis showed signs of acute cholecystitis with gallstone in neck of the gallbladder. No leukocytosis BUN/creatinine within normal limits. Liver enzymes within normal limits. EKG shows sinus bradycardia; no ST or T wave changes. Risk stratification; patient has history of unstable angina with LAD stents in the past. Currently, he is independent of ADLs and is able greater than 4 METS. No presenting chest pain or shortness of breath. EKG shows sinus bradycardia with no ST or T wave changes; no pathological Q waves. RCRI -1 (due to elevated risk surgery). Class II risk with 6% 30-day risk of , OR or cardiac arrest. Will obtain cardiology's opinion if patient will require any other preoperative test prior to surgery. Discussed with on-call oncologist; there is no reason from the standpoint of his cancer and no reason from the standpoint of his current treatment to hold off on surgery. Cardiology recommend appreciated; aspirin, metoprolol and rosuvastatin to be continued on uninterrupted during the perioperative period. No need to delay sanchez rgery from cardiac standpoint. Patient reportedly had black tarry stool on 08/29/2021. Patient underwent endoscopy today; no evidence of upper GI bleed. Plan; Plan for laparoscopic cholecystectomy today by surgery. We will follow-up postoperatively. Discontinue Protonix as there is no evidence of GI bleed Continue on ceftriaxone and Flagyl. Chronic conditions; CADstress echo done in October 2021 which was negative for any inducible ischemia. EF of 55 to 60%. Currently on aspirin and metoprolol. Non-small cell lung cancer status post left lower lobe lobectomy and mediastinal node dissection on January 2022, received adjuvant treatment with Alimta, cisplatin X4 cycles; currently on immunotherapy( Atezolizumab) Full code DVT prophylaxis SCDs. Admission and Anticipated Discharge Date Admission Date: August 28, 2022 Subjective Patient seen and examined at bedside. Endoscopy done; no evidence of upper GI bleed. Review of Systems Review of Systems: All systems reviewed & are unremarkable except as noted in Subjective Physical Exam Physical Exam: Constitutional: WD/WN, vitals as above, NAD, sitting up in bed, pleasant, conversing easily Respiratory: normal respiratory effort, lungs clear to auscultation, no wheeze, rales, rhonchi. Normal insp/exp effort, no accessory muscle use Cardiovascular: RRR, no murmur, no edema Vessels: no JVD or carotid bruit Chest: normal inspection of chest Abdomen: Minimal tenderness present in epigastric region; bowel sound present. Musculoskeletal: no cyanosis or clubbing, extremities motor strength 5/5 Skin: no rashes, warm and dry normal turgor Neurologic: PERRL, EOMI, accommodation nl, no face palsy, no dysarthria CN's II- XI intact bilaterally and moves all extremities Psychiatric: A+Ox3, euthymic affect : deferred Results & Data Results & Data ([facility]) Vital Signs (Past 12 Hours) Vital Signs Temp Pulse Pulse Resp BP Pulse Ox O2 Del Method 08/30/22 15:35 36.5 C 67 18 124/80 94 Room Air 08/30/22 11:44 36.4 C L 52 L 19 123/80 97 Room Air 08/30/22 06:59 59 L 08/30/22 09:48 36.5 C 64 19 134/84 97 Room Air 08/30/22 09:34 57 L 18 133/91 95 Room Air 08/30/22 09:19 61 18 130/90 95 Room Air 08/30/22 09:04 70 16 125/87 96 Room Air 08/30/22 08:14 36.2 C L 62 18 148/84 H 98 Room Air 08/30/22 06:40 36.2 C L 74 18 145/75 H 99 Room Air Laboratory Results Laboratory Results WBC 7.74 K/ul (4.8-10.8) 08/30/22 05:48 RBC 4.19 M/uL (4.63-6.08) L 08/30/22 05:48 Hgb 13.3 g/dl (14.0-18.0) L 08/30/22 05:48 Hct 39.4 % (40.1-51.0) L 08/30/22 05:48 MCV 94.0 fL (80.0-100.0) 08/30/22 05:48 MCH 31.7 pg (25.0-34.0) 08/30/22 05:48 MCHC 33.8 g/dL (32.0-36.0) 08/30/22 05:48 RDW Std Deviation 38.4 fL (36.4-46.3) 08/30/22 05:48 RDW Coeff of Rebeca 11.3 % (11.5-14.5) L 08/30/22 05:48 Plt Count 288 K/uL (130-400) 08/30/22 05:48 MPV 8.8 fL (9.4-12.4) L 08/30/22 05:48 Immature Gran % (Auto) 0.3 % 08/30/22 05:48 Neut % (Auto) 59.3 % 08/30/22 05:48 Lymph % (Auto) 23.1 % 08/30/22 05:48 [place] % (Auto) 11.1 % 08/30/22 05:48 Eos % (Auto) 5.3 % 08/30/22 05:48 Baso % (Auto) 0.9 % 08/30/22 05:48 Neut # (Auto) 4.59 K/uL (1.4-6.5) 08/30/22 05:48 Lymph # (Auto) 1.79 K/uL (1.2-3.4) 08/30/22 05:48 [place] # (Auto) 0.86 K/uL (0.24-0.82) H 08/30/22 05:48 Eos # (Auto) 0.41 K/uL (0-0.50) 08/30/22 05:48 Baso # (Auto) 0.07 K/uL (0-0.2) 08/30/22 05:48 Immature Gran # (Auto) 0.02 K/uL (0.00-0.02) 08/30/22 05:48 Sodium 138 mmol/L (136-145) 08/30/22 05:48 Potassium 4.4 mmol/L (3.5-5.1) 08/30/22 05:48 Chloride 104 mmol/L (98-107) 08/30/22 05:48 Carbon Dioxide 30 mmol/L (21-32) 08/30/22 05:48 Anion Gap 4 (3-11) 08/30/22 05:48 BUN 15 mg/dl (6-23) 08/30/22 05:48 Creatinine 1.12 mg/dl (0.6-1.4) 08/30/22 05:48 Est Cr Clr Drug Dosing 70.5 ml/min 08/30/22 05:48 Est GFR ( Amer) 82.9 ml/min 08/30/22 05:48 Est GFR (Non-Af Amer) 71.5 ml/min 08/30/22 05:48 BUN/Creatinine Ratio 13.4 (10-20) 08/30/22 05:48 Glucose 102 mg/dl (70-99(Fasting)) H 08/30/22 05:48 Calcium 8.9 mg/dl (8.5-10.1) 08/30/22 05:48 Total Bilirubin 0.4 mg/dl (0.2-1.0) 08/29/22 05:28 AST 33 U/L (13-39) 08/29/22 05:28 ALT 41 U/L (7-52) 08/29/22 05:28 Alkaline Phosphatase 74 U/L (34-104) 08/29/22 05:28 Troponin I High Sens 4.8 pg/ml (0-20) 08/28/22 07:45 Total Protein 6.7 gm/dl (6.0-8.3) 08/29/22 05:28 Albumin 3.6 gm/dl (3.4-5.0) 08/29/22 05:28 Globulin 3.1 gm/dl (2.5-4.0) 08/29/22 05:28 Albumin/Globulin Ratio 1.2 (0.9-2) 08/29/22 05:28 Lipase 41 U/L (11-82) 08/28/22 05:45 Urine Color Yellow 08/28/22 12:07 Urine Appearance Clear (Clear) 08/28/22 12:07 Urine pH 5.0 (4.5-7.5) 08/28/22 12:07 Ur Specific [place] > 1.045 (1.000-1.030) H 08/28/22 12:07 Urine Protein Negative (Negative) 08/28/22 12:07 Urine Glucose (UA) Negative (Negative) 08/28/22 12:07 Urine Ketones Negative (Negative) 08/28/22 12:07 Urine Blood Negative (Negative) 08/28/22 12:07 Urine Nitrite Negative (Negative) 08/28/22 12:07 Urine Bilirubin Negative (Negative) 08/28/22 12:07 Urine Urobilinogen Negative (Negative) 08/28/22 12:07 Ur Leukocyte Esterase Negative (Negative) 08/28/22 12:07 Stool Occult Bld Scrn Cancelled 08/29/22 20:39 Hepatitis C Ab (EIA) REACTIVE (NON-REACTIVE) A 08/29/22 05:28 Hep C Ab Signal/Cutoff 1.04 (<1.00) H 08/29/22 05:28 SARS-CoV-2, RNA, NAAT NEGATIVE (NEGATIVE) 08/28/22 08:20 Impressions Abdomen/Pelvis CT 08/28/22 05:[address] WITH IV CONTRAST CT DOSE: 607.44 mGy.cm HISTORY: epigastric pain, vomiting TECHNIQUE: Multiaxial CT images of the abdomen and pelvis were performed following the use of intravenous contrast. A dose lowering technique was utilized adhering to the principles of ALARA. COMPARISON STUDY: Abdomen and pelvis CT 05/31/2019. FINDINGS: Mild dependent changes seen at the lung bases. No pneumoperitoneum. No pneumatosis. Old posttraumatic and postoperative changes seen within the proximal left femur. There is a 5 mm gallstone identified. Questionable minimal inflammatory change surrounding the gallbladder. The gallbladder is mildly distended. Normal caliber common bile duct. The liver, adrenal glands, and pancreas are unremarkable. Small bilateral peripelvic renal cysts are noted. No hydronephrosis. No retroperitoneal lymphadenopathy. Tiny fat-containing umbilical hernia. The bladder is mildly distended. No pelvic free fluid or pelvic lymphadenopathy. Colonic diverticulosis. No evidence for acute diverticulitis. No bowel wall thickening or obstruction. The appendix is surgically absent. IMPRESSION: 1. The gallbladder is mildly distended and there is minimal surrounding inflammatory change. There is also a 5 mm stone at the gallbladder neck. Therefore, this may represent an early acute cholecystitis. Surgical consultation recommended. 2. No bowel wall thickening or obstruction. 3. Colonic diverticulosis. No evidence for acute diverticulitis. ACT 112: Negative or not required by law. Electronically signed by: Wagner Treviño M.D. 08/28/2022 7:21 AM Chest X-Ray 08/28/22 06:46 XR chest 1V portable HISTORY: Atypical chest pain COMPARISON: Chest 07/15/2022. FINDINGS: No pneumothorax. No pleural effusions. The cardiac silhouette remains mildly enlarged. There are old, healed bilateral rib fractures again noted. No new focal lung consolidations to suggest a pneumonia. No evidence for pulmonary edema. A right jugular Port-A-Cath terminates in the SVC. IMPRESSION: No significant change compared to the prior study. No acute process. ACT 112: Negative or not required by law. Electronically signed by: Wagner Treviño M.D. 08/28/2022 8:05 AM
--- NOTE | 2022-08-30 16:11 | Anesthesiology Consultation ---
Date of Service August 30, 2022 Assessment & Plan (1) Encounter for pre-operative examination: Chart Review Chart Review: Acceptable Risk for Surgery History Surgery Operation Date: 08/29/22 07:00 Proposed Procedures p Laparoscopic Cholecystectomy - Jeromy Tineo MD Operation Date: 08/30/22 12:00 Proposed Procedures p Laparoscopic Cholecystectomy - Jeromy Tineo MD Operation Date: 08/30/22 16:00 Proposed Procedures p Esophagogastroduodenoscopy Dr Olivares - Mahad Olivares MD Height/Weight Height: 5 ft 4 in Weight: 86.6 kg Allergies Allergy/AdvReac Type Severity Reaction Status Date / Time Penicillins AdvReac Mild N/V Verified 11/16/21 00:51 Medications Home Medications Medication Instructions Recorded Confirmed Last Taken Flonase 08/28/22 Unknown aspirin 81 mg chewable tablet 81 mg PO 08/28/22 Unknown lidocaine-prilocaine 2.5 %-2.5 % 08/28/22 08/28/22 Unknown topical cream metoprolol succinate 25 mg 25 mg PO DAILY 08/28/22 08/28/22 Unknown tablet,extended release 24 hr rosuvastatin 40 mg tablet 40 mg PO DAILY 08/28/22 08/28/22 Unknown Active Medications Generic Name Dose Route Start Last Admin Trade Name Freq PRN Reason Stop Dose Admin Aspirin 81 mg 08/29/22 09:00 08/29/22 13:06 Aspirin 81 Mg Chew PO 09/28/22 08:59 81 mg DAILY SAVANAH Administration Ceftriaxone Sodium 2,000 mg/ 70 mls @ 100 mls/hr 08/28/22 14:00 08/30/22 15:35 Dextrose IV 09/07/22 11:14 Infused Q24H SAVANAH Infusion Protocol Metronidazole 500 mg in 100 mls @ 100 mls/hr 08/28/22 12:00 08/30/22 13:59 Flagyl IV 09/07/22 11:09 Infused Q8H SAVANAH Infusion Sodium Chloride 1,000 mls @ 75 mls/hr 08/29/22 08:45 08/30/22 13:00 Nss 1000ml IV 09/28/22 08:44 75 mls/hr .[id number] SAVANAH Administration Pantoprazole Sodium 40 mg/ 10 mls @ 5 mls/min 08/29/22 09:00 08/29/22 21:34 Syringe IV 09/28/22 08:59 5 mls/min BID SAVANAH Administration Metoprolol Succinate 25 mg 08/29/22 09:00 08/29/22 13:05 Metoprolol Succ 25mg Ext Rel Tab PO 09/28/22 08:59 25 mg DAILY SAVANAH Administration Morphine Sulfate 2 mg 08/28/22 11:10 08/29/22 04:31 Morphine Sulfate 2 Mg/Ml Carp IV 09/11/22 11:09 2 mg Q6H PRN Administration Pain (SEVERE, 8-10/10) Oxycodone HCl 5 mg 08/28/22 11:10 08/28/22 23:12 Oxycodone Hcl Ir 5 Mg Tab (Immediate Release) PO 09/11/22 11:09 5 mg Q6H PRN Administration Pain (MODERATE, 4-7/10) Rosuvastatin Calcium 40 mg 08/28/22 12:30 08/29/22 13:05 Rosuvastatin Calcium 20 Mg Tab PO 09/27/22 12:29 40 mg DAILY SAVANAH Administration NPO Date Last Intake of Fluids: 08/29/22 Time Last Intake of Fluids: 22:00 Date Last Intake of Solids: 08/29/22 Past Medical History Medical History CAD (coronary artery disease) Lung cancer Past Surgical History Surgical History (Updated 08/30/22 @ 16:08 by Kaiser Ramirez MD) History of cardiac cath 2013 History of cataract surgery LEFT History of heart artery stent failed stress test and found blockage -- stent x 1 2013 done [facility] and no longer cardiac doctor took plavix for one year and takes metoprolol and crestor Hx of appendectomy Hx of colonoscopy Hx of wisdom tooth extraction S/P lobectomy of lung Social History Smoking Status: Former smoker Hx Alcohol Use: Yes Alcohol type: beer alcohol intake frequency: holidays/special occasions only Hx Substance Use: No substance use type: does not use Physical Exam Vital Signs Last Vital Signs Temp 36.5 C 08/30/22 15:35 Pulse 67 08/30/22 15:35 Resp 18 08/30/22 15:35 BP 124/80 08/30/22 15:35 Pulse Ox 94 08/30/22 15:35 O2 Del Method 08/30/22 15:35 Testing Laboratory Results 08/30/22 05:48 08/30/22 05:48 Urine Color Yellow 08/28/22 12:07 Urine Appearance Clear (Clear) 08/28/22 12:07 Urine pH 5.0 (4.5-7.5) 08/28/22 12:07 Ur Specific [place] > 1.045 (1.000-1.030) H 08/28/22 12:07 Urine Protein Negative (Negative) 08/28/22 12:07 Urine Glucose (UA) Negative (Negative) 08/28/22 12:07 Urine Ketones Negative (Negative) 08/28/22 12:07 Urine Nitrite Negative (Negative) 08/28/22 12:07 Ur Leukocyte Esterase Negative (Negative) 08/28/22 12:07 Electrocardiogram Date: 08/28/22 Findings: + SB @ (52) Echocardiogram Date: 11/16/21 EF: 55-60% LV Function: normal Valvular Disease: + no significant valvular disease Cardiac Catheterization Date: 09/12/19 Intervention: + ÓSCAR placed Pulmonary Function Test Date: 12/03/21 normal study
[2022-08-30] MEDS ORDERED: ROCURONIUM BROMIDE 10 MG/ML 5 ML VIAL IV ONE (16:27)
[2022-08-30] MEDS ORDERED: DEXAMETHASONE SOD INJ 4 MG/ML VIAL ONE (16:28)
[2022-08-30] MEDS ORDERED: MIDAZOLAM HCL 1 MG/ML 2ML VIAL ONE (16:28)
[2022-08-30] MEDS ORDERED: fentaNYL citrate 100 MCG/2 ML VIAL ONE ×2 (16:28→17:59)
[2022-08-30] MEDS ORDERED: ONDANSETRON INJ 2 MG/ML 2 ML VIAL ONE ×2 (16:28→18:19)
[2022-08-30] MEDS ORDERED: ATROPINE SULFATE 0.1 MG/ML 10ML SYR IV PRN (17:06)
[2022-08-30] MEDS ORDERED: LABETALOL HCL IV 5 MG/ML 20ML IV PRN (17:06)
[2022-08-30] MEDS ORDERED: ONDANSETRON INJ 2 MG/ML 2 ML VIAL IV PRN (17:06)
[2022-08-30] MEDS ORDERED: BUPIVACAINE/EPINEPHRINE 0.25% 1:200,000 30 ML VIAL ONE (17:07)
[2022-08-30] MEDS ORDERED: NEOSTIGMINE METHYLSULFATE 1 MG/ML 10ML VIAL ONE (18:20)
[2022-08-30] MEDS ORDERED: GLYCOPYRROLATE 0.2 MG/ML VIAL ONE (18:20)
[2022-08-30] MEDS: PANTOprazole 40 MG in SYRINGE 0 ML IV SCH ×2 (18:30→21:22)
[2022-08-30] MEDS: ROSUVASTATIN CALCIUM 20 MG TAB PO SCH (18:30)
[2022-08-30] MEDS: ASPIRIN 81 MG CHEW PO SCH (18:30)
[2022-08-30] MEDS: METOPROLOL SUCC 25MG EXT REL TAB PO SCH (18:30)
--- NOTE | 2022-08-30 18:46 | Operative Report ---
Post Operative Report Pre & Post Diagnosis Operation Date: 08/29/22 07:00 <No data on this case meets the specified criteria> Operation Date: 08/30/22 12:00 Pre-Op Diagnosis: ACUTE CHOLECYSTITIS Post-Op Diagnosis: ACUTE CHOLECYSTITIS Operation Date: 08/30/22 16:00 Pre-Op Diagnosis: ACUTE CHOLECYSTITIS Post-Op Diagnosis: normal egd. I identified the patient and participated in the time-out.: Yes Procedure Operation Date: 08/29/22 07:00 <No data on this case meets the specified criteria> Operation Date: 08/30/22 12:00 Actual Procedures p Laparoscopic Cholecystectomy(Not Applicable) - Jeromy Tineo MD Operation Date: 08/30/22 16:00 Actual Procedures p Esophagogastroduodenoscopy - Mahad Olivares MD Surgeon Jeromy Tineo MD Child Support Specialist none Estimated Blood Loss 5 Findings Consistent with Post-Op Diagnosis Acute cholecystitis Specimens Gallbladder Drains None Anesthesia Type General Complications No immediate complications Description of Procedure The patient was taken to the operating room, and placed supine on the operating table. A timeout was performed, perioperative antibiotics were administered, SCD boots were placed. After adequate anesthesia and analgesia was obtained, the abdomen was prepped and draped in the normal sterile fashion. Local anesthetic was injected into and around the proposed incision sites. An incision was made with a 15 blade scalpel in the supraumbilical region and carried down to the level of the fascia. The fascia was grasped with a trach hook, and a varies needle was used to enter the abdominal cavity. The abdomen was insufflated to a pressure of 15 mmHg, and a 11 mm trocar was placed in this location. A 10 mm, 30 degree laparoscope was placed into the abdominal cavity, and the abdomen was surveyed. Two 5 mm trochars were placed along the right costal margin, and one 5 mm trocar was placed in the subxiphoid region under direct visualization. The gallbladder was grasped and retracted cephalad and laterally, exposing the triangle of [place]. Dissection began in the triangle with a combination of blunt dissection with the [place] dissector, and judicious use of the hook cautery. The cystic duct and cystic artery were dissected free circumferentially, and a critical view of safety was obtained. The cystic duct and cystic artery were clipped and transected, and the gallbladder was removed from the gallbladder fossa with the hook cautery. The camera was switched to a 5 mm, the gallbladder was placed in an Endo Catch bag, and removed via the supraumbilical port site. The camera was switched back to the 10 mm camera, and the abdomen was surveyed again. Hemostasis was checked and attended, and was excellent. The abdomen was copiously irrigated and suctioned free. Again hemostasis was checked and was excellent. All trochars were removed under direct visualization. The abdomen was desufflated. The fascia in the 11 mm port site was closed with a 0 Vicryl suture. The skin was closed with a running 4-0 Monocryl subcuticular stitch. Dermabond was applied. The patient tolerated the procedure without complication, and was transferred in stable condition to the PACU. All instrument, needle, and sponge counts were correct at the end of the case. I attest to the content of the Intraoperative Record and any orders documented therein. Any exceptions are noted below.
[2022-08-30] MEDS: HYDROmorphone INJ 1 MG/ML SYRINGE IV PRN ×6 (18:56→19:21)
--- NOTE | 2022-08-30 19:26 | Anesthesiology Progress Note ---
Date of Service August 30, 2022 Anesthesia Post Procedure Vital Signs Vital Signs: Temp Pulse Pulse Pulse Resp BP Pulse Ox 08/30/22 19:25 68 21 156/93 H 98 08/30/22 19:15 73 18 145/98 H 98 08/30/22 18:55 74 16 151/83 H 100 08/30/22 19:05 73 14 160/98 H 100 08/30/22 18:46 36.4 C L 78 16 154/84 H 99 08/30/22 14:49 76 08/30/22 16:47 36.6 C 62 18 151/85 H 97 08/30/22 15:35 36.5 C 67 18 124/80 94 08/30/22 11:44 36.4 C L 52 L 19 123/80 97 08/30/22 06:59 59 L 08/30/22 09:48 36.5 C 64 19 134/84 97 08/30/22 09:34 57 L 18 133/91 95 08/30/22 09:19 61 18 130/90 95 08/30/22 09:04 70 16 125/87 96 08/30/22 08:14 36.2 C L 62 18 148/84 H 98 08/30/22 06:40 36.2 C L 74 18 145/75 H 99 08/30/22 02:54 36.6 C 79 18 136/80 98 08/29/22 22:55 36.9 C 86 20 129/75 98 O2 Del Method O2 Flow Rate 08/30/22 19:25 Nasal Cannula 2 08/30/22 19:15 Room Air 08/30/22 18:55 Oxymask 14 08/30/22 19:05 Oxymask 14 08/30/22 18:46 Oxymask 14 08/30/22 14:49 08/30/22 16:47 Room Air 08/30/22 15:35 Room Air 08/30/22 11:44 Room Air 08/30/22 06:59 08/30/22 09:48 Room Air 08/30/22 09:34 Room Air 08/30/22 09:19 Room Air 08/30/22 09:04 Room Air 08/30/22 08:14 Room Air 08/30/22 06:40 Room Air 08/30/22 02:54 Room Air 08/29/22 22:55 Room Air Pain Intensity Abdomen: Pain Intensity: 8 Transfer of Care Handoff Completed per policy Notes Mental Status: alert / awake / arousable Patient Amnestic to Procedure: Yes Nausea / Vomiting: adequately controlled Pain: adequately controlled Airway Patency, RR, SpO2: stable & adequate BP & HR: stable & adequate Hydration State: stable & adequate Anesthetic Complications: no major complications apparent
[2022-08-30] MEDS: oxyCODONE/ACETAMINOPHEN 5mg/325mg TAB PO PRN (21:22)
[2022-08-31] MEDS: metroNIDAZOLE 500 MG/100 ML BAG IV SCH ×2 (06:02→12:54)
[2022-08-31 06:12] LABS: Basophils # (auto) 0.01 K/uL (0-0.2); Basophils % (auto) 0.1 %; Hematocrit (blood only) 37.9 % (40.1-51.0); Hemoglobin 13.2 g/dl (14.0-18.0); Immature Granulocytes # (auto) 0.05 K/uL (0.00-0.02); Immature Granulocytes % (auto) 0.5 %; Lymphocytes # (auto) 0.91 K/uL (1.2-3.4); Lymphocytes % (auto) 8.8 %; Mean Corpuscular Hgb Conc 34.8 g/dL (32.0-36.0); Mean Corpuscular Volume 91.8 fL (80.0-100.0); Mean Platelet Volume 9.2 fL (9.4-12.4); Monocytes # (auto) 0.85 K/uL (0.24-0.82); Monocytes % (auto) 8.2 %; Neutrophils # (auto) 8.55 K/uL (1.4-6.5); Neutrophils % (auto) 82.4 %; Platelet Count 298 K/uL (130-400); RDW Standard Deviation 37.2 fL (36.4-46.3); Red Blood Count 4.13 M/uL (4.63-6.08); White Blood Count 10.37 K/ul (4.8-10.8)
[2022-08-31 06:51] LABS: Albumin Globulin Ratio 1.2 (0.9-2); Albumin Level 3.6 gm/dl (3.4-5.0); BUN Creatinine Ratio 13.6 (10-20); Bilirubin,Total 0.4 mg/dl (0.2-1.0); Calcium 8.5 mg/dl (8.5-10.1); Creatinine Clr Calc Pharmacy 66.8 ml/min; Est GFR (African American) 77.8 ml/min; Est GFR (Non-African American) 67.1 ml/min; Potassium 4.4 mmol/L (3.5-5.1); Total Protein 6.6 gm/dl (6.0-8.3)
[2022-08-31] MEDS: ASPIRIN 81 MG CHEW PO SCH (08:21)
[2022-08-31] MEDS: METOPROLOL SUCC 25MG EXT REL TAB PO SCH (08:21)
[2022-08-31] MEDS: ROSUVASTATIN CALCIUM 20 MG TAB PO SCH (08:21)
[2022-08-31] MEDS: PANTOprazole 40 MG in SYRINGE 0 ML IV SCH (08:22)
[2022-08-31] MEDS: oxyCODONE/ACETAMINOPHEN 5mg/325mg TAB PO PRN ×2 (08:22→16:41)
[2022-08-31] MEDS: SODIUM CHLORIDE 0.9% 1000ML 1,000 ML IV SCH (11:40)
[2022-08-31] MEDS: cefTRIAXone SODIUM 2,000 MG in DEXTROSE 5% 50 ML IV SCH (12:54)
--- NOTE | 2022-08-31 13:25 | Hospitalist Progress Note ---
Date of Service August 31, 2022 Assessment & Plan (1) Upper GI bleed: (2) Acute cholecystitis: Plan: Acute Cholecystitis --CT ABD:The gallbladder is mildly distended and there is minimal surrounding inflammatory change. There is also a 5 mm stone at the gallbladder neck. Therefore, this may represent an early acute cholecystitis. Surgical consultation recommended. No bowel wall thickening or obstruction. Colonic diverticulosis. No evidence for acute diverticulitis. --S/P laparoscopic cholecystectomy by on 08/30/22 -- Tolerating diet Empirically on Rocephin, Flagyl Appreciate surgery input Pain control Suspected Melena Likely due to Pepto-Bismol S/P EGD on 08/30/22: Normal esophagus, normal stomach, normal examined duodenum. No specimens collected. -Hb stable Appreciate GI input CAD Stress echo done in October 2021 which was negative for any inducible ischemia. EF of 55 to 60% Continue aspirin, statin, metoprolol Non-small cell lung cancer S/P left lower lobe lobectomy and mediastinal node dissection on January 2022 Received adjuvant treatment with Alimta, cisplatin X4 cycles Currently on immunotherapy-Atezolizumab Code Status Full code DVT Px: SCDs Admission and Anticipated Discharge Date Admission Date: August 28, 2022 Subjective Patient is seen and examined at bedside States having mild soreness at surgical site Denies any nausea, vomiting, chest pain, dizziness Tolerating diet + Flatus No other complaints Eager to get discharged Review of Systems Review of Systems: All systems reviewed & are unremarkable except as noted in Subjective Physical Exam Physical Exam: Physical Exam: Vitals signs as noted above General Appearance:Obese, no apparent distress Head: normocephalic, Atraumatic Eyes: normal inspection, EOMI Neck: supple, Trachea midline Respiratory/Chest: Normal breath sounds, CTA, No accessory muscle use Cardiovascular: S1, S2, No murmur Abdomen/GI:Soft, Non tender, mildly distended, +Surgical scar, Bowel sounds present Extremities/Musculoskeletal:normal inspection, no edema Neurologic/Psych:AAOX3, grossly no focal neurological deficits Skin: normal color, warm Results & Data Results & Data ([facility]) Vital Signs (Past 12 Hours) Vital Signs Temp Pulse Resp BP Pulse Ox O2 Del Method 08/31/22 11:29 36.4 C L 75 19 101/64 97 Room Air 08/31/22 07:58 36.3 C L 64 19 148/87 H 95 Room Air 08/31/22 03:00 36.4 C L 75 16 157/78 H 95 Room Air Laboratory Results Short CBC 08/31/22 Range/Units 05:23 WBC 10.37 (4.8-10.8) K/ul Hgb 13.2 L (14.0-18.0) g/dl Hct 37.9 L (40.1-51.0) % Plt Count 298 (130-400) K/uL BMP 08/31/22 05:23 Sodium 136 Potassium 4.4 Chloride 104 Carbon Dioxide 26 BUN 16 Creatinine 1.18 Glucose 129 H Calcium 8.5 Liver Function 08/31/22 Range/Units 05:23 Total Bilirubin 0.4 (0.2-1.0) mg/dl AST 53 H (13-39) U/L ALT 51 (7-52) U/L Alkaline Phosphatase 87 (34-104) U/L Albumin 3.6 (3.4-5.0) gm/dl
--- NOTE | 2022-08-31 15:32 | Surgery Progress Note ---
Date of Service August 31, 2022 Assessment & Plan (1) Acute cholecystitis: Plan: POD #1 s/p laparoscopic cholecystectomy. Doing well. Advance diet as tolerated Ambulate in hallway Pain control with oral pain medication Discharged home today Follow-up in 2 weeks in surgical clinic Admission and Anticipated Discharge Date Admission Date: August 28, 2022 Subjective POD #1 s/p laparoscopic cholecystectomy Doing well. Denies pain or tenderness. Denies fevers and chills. Tolerating regular diet. Physical Exam Physical Exam: A&O x3, NAD Abdomen soft, nontender, nondistended Incisions healing well without erythema or discharge; Dermabond in place Results & Data ([facility]) Vital Signs (Past 12 Hours) Vital Signs Temp Pulse Resp BP Pulse Ox O2 Del Method 08/31/22 13:58 36.6 C 75 19 101/64 97 08/31/22 11:29 36.4 C L 75 19 101/64 97 Room Air 08/31/22 07:58 36.3 C L 64 19 148/87 H 95 Room Air
--- NOTE | 2022-08-31 15:49 | Discharge Summary ---
Date of Service August 31, 2022 Admission HPI Per Admitting Provider Chief Complaint: Abdominal pain for 1 day Nausea vomiting for 1 day Primary Care Provider: Valentin Johns MD History obtained from chart review and interview with the patient. Past medical history of nonsmall cell lung cancer status post left lower lobe lobectomy and mediastinal node dissection on January 2022, received adjuvant treatment with Alimta, cisplatin X4 cycles; currently on immunotherapy( Atezolizumab), history of CAD with 2 stents in LAD most recent in August 2019. Patient presented with sudden onset of epigastric pain which woke him out of from sleep at night at 2 AM. The pain was continuous, radiating to right upper quadrant region and was associated with nausea and vomiting. The vomitus contained food particles; no blood. He denies any diarrhea. No chest pain, shortness of breath or palpitation. 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 He follows up with cardiology; he had stress echo done in October 2021 which was negative for any inducible ischemia. EF of 55 to 60%. He is currently receiving immunotherapy for non-small cell cancer. On presentation to the ED, patient was afebrile, normotensive and saturating well in room air. CT abdomen and pelvis was done which showed mildly distended gallbladder and minimal surrounding inflammatory change with 5 mm stone in gallbladder neck suggestive of acute cholecystitis. Patient was given IV fluids, analgesics and surgery was consulted. Patient is to undergo possible laparoscopic cholecystectomy tomorrow a.m. Admission Exam Per Admitting Provider Constitutional: WD/WN, vitals as above, NAD, sitting up in bed, pleasant, conversing easily Respiratory: normal respiratory effort, lungs clear to auscultation, no wheeze, rales, rhonchi. Normal insp/exp effort, no accessory muscle use Cardiovascular: RRR, no murmur, no edema Vessels: no JVD or carotid bruit Chest: normal inspection of chest Abdomen: Tenderness present in epigastric region. Bowel sound present. Musculoskeletal: no cyanosis or clubbing, extremities motor strength 5/5 Skin: no rashes, warm and dry normal turgor Neurologic: PERRL, EOMI, accommodation nl, no face palsy, no dysarthria CN's II- XI intact bilaterally and moves all extremities Psychiatric: A+Ox3, euthymic affect : deferred Principal Diagnosis Acute Cholecystitis Discharge Data Allergies Allergy/AdvReac Type Severity Reaction Status Date / Time Penicillins AdvReac Mild N/V Verified 11/16/21 00:51 Consultations 08/28/22 08:09 ED Decision to Admit Stat 08/28/22 11:10 Consult General Surgery Routine 08/28/22 12:13 Consult Cardiology Routine 08/29/22 08:47 Consult Gastroenterology Routine Procedures Performed Operation Date: 08/29/22 07:00 <No data on this case meets the specified criteria> Operation Date: 08/30/22 12:00 Actual Procedures p Laparoscopic Cholecystectomy(Not Applicable) - Jeromy Tineo MD Operation Date: 08/30/22 16:00 Actual Procedures p Esophagogastroduodenoscopy - Mahad Oliavres MD Ordered Studies 08/28/22 05:46 CT abd pelvis IV con only Stat Laboratory Results WBC 10.37 K/ul (4.8-10.8) 08/31/22 05:23 RBC 4.13 M/uL (4.63-6.08) L 08/31/22 05:23 Hgb 13.2 g/dl (14.0-18.0) L 08/31/22 05:23 Hct 37.9 % (40.1-51.0) L 08/31/22 05:23 MCV 91.8 fL (80.0-100.0) 08/31/22 05:23 MCH 32.0 pg (25.0-34.0) 08/31/22 05:23 MCHC 34.8 g/dL (32.0-36.0) 08/31/22 05:23 RDW Std Deviation 37.2 fL (36.4-46.3) 08/31/22 05:23 RDW Coeff of Rebeca 11.0 % (11.5-14.5) L 08/31/22 05:23 Plt Count 298 K/uL (130-400) 08/31/22 05:23 MPV 9.2 fL (9.4-12.4) L 08/31/22 05:23 Immature Gran % (Auto) 0.5 % 08/31/22 05:23 Neut % (Auto) 82.4 % 08/31/22 05:23 Lymph % (Auto) 8.8 % 08/31/22 05:23 [place] % (Auto) 8.2 % 08/31/22 05:23 Eos % (Auto) 0.0 % 08/31/22 05:23 Baso % (Auto) 0.1 % 08/31/22 05:23 Neut # (Auto) 8.55 K/uL (1.4-6.5) H 08/31/22 05:23 Lymph # (Auto) 0.91 K/uL (1.2-3.4) L 08/31/22 05:23 [place] # (Auto) 0.85 K/uL (0.24-0.82) H 08/31/22 05:23 Eos # (Auto) 0.00 K/uL (0-0.50) 08/31/22 05: Baso # (Auto) 0.01 K/uL (0-0.2) 08/31/22 05: Immature Gran # (Auto) 0.05 K/uL (0.00-0.02) H 08/31/22 05:23 Sodium 136 mmol/L (136-145) 08/31/22 05:23 Potassium 4.4 mmol/L (3.5-5.1) 08/31/22 05:23 Chloride 104 mmol/L (98-107) 08/31/22 05:23 Carbon Dioxide 26 mmol/L (21-32) 08/31/22 05:23 Anion Gap 6 (3-11) 08/31/22 05:23 BUN 16 mg/dl (6-23) 08/31/22 05:23 Creatinine 1.18 mg/dl (0.6-1.4) 08/31/22 05:23 Est Cr Clr Drug Dosing 66.8 ml/min 08/31/22 05:23 Est GFR ( Amer) 77.8 ml/min 08/31/22 05:23 Est GFR (Non-Af Amer) 67.1 ml/min 08/31/22 05:23 BUN/Creatinine Ratio 13.6 (10-20) 08/31/22 05:23 Glucose 129 mg/dl (70-99(Fasting)) H 08/31/22 05:23 Calcium 8.5 mg/dl (8.5-10.1) 08/31/22 05:23 Total Bilirubin 0.4 mg/dl (0.2-1.0) 08/31/22 05:23 AST 53 U/L (13-39) H 08/31/22 05:23 ALT 51 U/L (7-52) 08/31/22 05:23 Alkaline Phosphatase 87 U/L (34-104) 08/31/22 05:23 Troponin I High Sens 4.8 pg/ml (0-20) 08/28/22 07:45 Total Protein 6.6 gm/dl (6.0-8.3) 08/31/22 05:23 Albumin 3.6 gm/dl (3.4-5.0) 08/31/22 05:23 Globulin 3.0 gm/dl (2.5-4.0) 08/31/22 05: Albumin/Globulin Ratio 1.2 (0.9-2) 08/31/22 05:23 Lipase 41 U/L (11-82) 08/28/22 05:45 Urine Color Yellow 08/28/22 12:07 Urine Appearance Clear (Clear) 08/28/22 12:07 Urine pH 5.0 (4.5-7.5) 08/28/22 12:07 Ur Specific [place] > 1.045 (1.000-1.030) H 08/28/22 12:07 Urine Protein Negative (Negative) 08/28/22 12:07 Urine Glucose (UA) Negative (Negative) 08/28/22 12:07 Urine Ketones Negative (Negative) 08/28/22 12:07 Urine Blood Negative (Negative) 08/28/22 12:07 Urine Nitrite Negative (Negative) 08/28/22 12:07 Urine Bilirubin Negative (Negative) 08/28/22 12:07 Urine Urobilinogen Negative (Negative) 08/28/22 12:07 Ur Leukocyte Esterase Negative (Negative) 08/28/22 12:07 Stool Occult Bld Scrn Cancelled 08/29/22 20:39 Hepatitis C Ab (EIA) REACTIVE (NON-REACTIVE) A 08/29/22 05:28 Hep C Ab Signal/Cutoff 1.04 (<1.00) H 08/29/22 05:28 SARS-CoV-2, RNA, NAAT NEGATIVE (NEGATIVE) 08/28/22 08:20 Impressions Abdomen/Pelvis CT 08/28/22 05:[address] WITH IV CONTRAST CT DOSE: 607.44 mGy.cm HISTORY: epigastric pain, vomiting TECHNIQUE: Multiaxial CT images of the abdomen and pelvis were performed following the use of intravenous contrast. A dose lowering technique was utilized adhering to the principles of ALARA. COMPARISON STUDY: Abdomen and pelvis CT 05/31/2019. FINDINGS: Mild dependent changes seen at the lung bases. No pneumoperitoneum. No pneumatosis. Old posttraumatic and postoperative changes seen within the proximal left femur. There is a 5 mm gallstone identified. Questionable minimal inflammatory change surrounding the gallbladder. The gallbladder is mildly distended. Normal caliber common bile duct. The liver, adrenal glands, and pancreas are unremarkable. Small bilateral peripelvic renal cysts are noted. No hydronephrosis. No retroperitoneal lymphadenopathy. Tiny fat-containing umbilical hernia. The bladder is mildly distended. No pelvic free fluid or pelvic lymphadenopathy. Colonic diverticulosis. No evidence for acute diverticulitis. No bowel wall thickening or obstruction. The appendix is surgically absent. IMPRESSION: 1. The gallbladder is mildly distended and there is minimal surrounding inflammatory change. There is also a 5 mm stone at the gallbladder neck. Therefore, this may represent an early acute cholecystitis. Surgical consultation recommended. 2. No bowel wall thickening or obstruction. 3. Colonic diverticulosis. No evidence for acute diverticulitis. ACT 112: Negative or not required by law. Electronically signed by: Wagner Treviño M.D. 08/28/2022 7:21 AM Chest X-Ray 08/28/22 06:46 XR chest 1V portable HISTORY: Atypical chest pain COMPARISON: Chest 07/15/2022. FINDINGS: No pneumothorax. No pleural effusions. The cardiac silhouette remains mildly enlarged. There are old, healed bilateral rib fractures again noted. No new focal lung consolidations to suggest a pneumonia. No evidence for pulmonary edema. A right jugular Port-A-Cath terminates in the SVC. IMPRESSION: No significant change compared to the prior study. No acute process. ACT 112: Negative or not required by law. Electronically signed by: Wagner Treviño M.D. 08/28/2022 8:05 AM Hospital Course (1) Upper GI bleed: (2) Acute cholecystitis: Acute Cholecystitis --CT ABD:The gallbladder is mildly distended and there is minimal surrounding i nflammatory change. There is also a 5 mm stone at the gallbladder neck. Therefore, this may represent an early acute cholecystitis. Surgical consultation recommended. No bowel wall thickening or obstruction. Colonic diverticulosis. No evidence for acute diverticulitis. --S/P laparoscopic cholecystectomy by on 08/30/22 -- Tolerating diet Empirically on Rocephin, Flagyl Appreciate surgery input Pain control Suspected Melena Likely due to Pepto-Bismol S/P EGD on 08/30/22: Normal esophagus, normal stomach, normal examined duodenum. No specimens collected. -Hb stable Appreciate GI input CAD Stress echo done in October 2021 which was negative for any inducible ischemia. EF of 55 to 60% Continue aspirin, statin, metoprolol Non-small cell lung cancer S/P left lower lobe lobectomy and mediastinal node dissection on January 2022 Received adjuvant treatment with Alimta, cisplatin X4 cycles Currently on immunotherapy-Atezolizumab Code Status Full code DVT Px: SCDs Total Time Total Time Spent Total Time Spent (In Minutes): 48 minutes Discharge Plan Discharge Items Patient Disposition: Home - Self-Care Reason For Visit: ACUTE CHOLECYSTITIS Discharge Diagnosis: Acute Cholecystitis Condition on Discharge: Good Activity: Per Instructions section Exercise/Sports: Wait until after follow-up appointment Non-emergency contact: Primary Care Provider and Surgeon Call non-emergency contact if: you have any medication questions, your symptoms worsen, your pain is concerning for you, you have a fever, your wound has increased redness, your wound has increased drainage and your wound pain has increased Follow-up/Referrals: Valentin Johns MD [Primary Care Provider] - (Date & Time 09/06/2022 3:00 PM Provider Kassandra Cruz PA-C Department [facility] ) Diet: Heart Healthy and Low Fat Addtl Attending Provider Instructions: Follow-up with your primary care physician on 09/06/2022 3:00 PM Follow-up with your surgeon in 2 weeks Seek immediate medical attention if your symptoms reoccur or worsen Please take all medications as instructed on discharge list below. Please call if you have any questions or problems. You can reach a [facility] hospitalist on duty at [facility] 24 hours a day by calling [phone] Addtl Certified Coatings Inspector Provider Instructions: Post-Surgical ~Discharge Instructions Activity Recommendations: - lifting limitation: (20 pounds for 2 weeks), - exercise/sex/sports limit: (nonstrenuous for 2 weeks), - driving or machine use limit: (none for 1 week or until pain free and no longer taking narcotic pain medication), - Shower/bathe limit: (may shower beginning, no bathing for 2 weeks) Diet: - Resume previous diet SPECIAL CARE INSTRUCTIONS: - May shower. Let water run over area and pat dry. - Leave Dermabond glue on, this will fall off on its own - Call the surgeon's office with any questions or concerns - - (ex. temperature higher than 101 degrees F, excessive bleeding or pain). MEDICATIONS: - Resume previous medications unless instructed otherwise by your surgeon. - May take extra strength Tylenol as needed for mild to moderate pain -650 mg Tylenol every 6 hours as needed - Ibuprofen 600 mg every 6 hours as needed (take with food) - Percocet 1 every 6 hours, as needed for moderate to severe pain - Consider taking daily stool softener (Colace) while taking narcotic pain medication to prevent constipation or straining. Drink plenty of water daily. FOLLOW UP VISIT: - If not already scheduled, please call the office to schedule a two week follow-up appointment. Office number Pending Studies at Discharge: Yes (gallbladder pathology, will be reviewed at postop visit) Stand-Alone Forms: My [facility] [employer], Smoking Cessation Medications and DC Order Prescriptions: New oxycodone-acetaminophen [Percocet] 5-325 mg Tablet 1 tab PO Q8H PRN (Reason: pain) Qty: 10 0RF Continued lidocaine-prilocaine 2.5-2.5 % cream aspirin 81 mg Tablet,Chewable 81 mg PO metoprolol succinate 25 mg tablet extended release 24 hr 25 mg PO DAILY rosuvastatin 40 mg tablet 40 mg PO DAILY Flonase Discharge Orders: Discharge Order (Routine); Ordered 08/31/22 Ordered By: Andrea Butler Admission Data Admit Date/Time: 08/28/22 08:21 Attending Provider: Andrea Butler Admit Provider: Jake Valdez Primary Care Provider: Valentin Johns Other Providers: Jake Valdez ; Woo Freeman ; Danilo Reyes ; Marielena Anne ; Casimiro Cardenas ; Beverley Trevizo ; Yu Owens ; Tessa Harrison ; Shahida Perdomo ; Michael Velazquez ; Kaiser Walker ; Brian Mcneil ; Joesph Yadav ; Mahad Olivares ; Ida Lopez ; Stacia Alexander ; Shoshana Wong ; Omaira Ray ; Meera Ballard ; Alejo Pickering ; Wilfredo Santiago ; Senia Rodriguez ; Roman Pruitt Jr Other Interventions: Discharge Summary Assessment (RN) Last Done: 08/31/22 13:58
== END 2022-08-31 17:00 | disposition home or self-care (01) | DRG 418 ==
LOC: ED 05:23 → EDINP 08:21 → SUATTDRO 08:21 → 4W 11:10